=== PATIENT | male | born 1965 | race African-American/Black ===

== ENCOUNTER 2019-04-01 18:59 | Emergency (ER) | payer MEDICARE, MEDICAID, SELFPAY ==
[2019-04-01 19:00] VITALS: BP 108/67; PULSE 72; RESP 16; TEMP 36.6; O2SAT 100; BMI 19.1
[2019-04-01 19:37] LABS: Absolute Lymphocyte Count 0.55 X10^3/uL (0.83-4.51); Absolute Neutrophil Count 0.7 X10^3/uL (2.0-7.7); Basophil# 0.01 X10^3/uL; Basophil% 0.6 % (0-1); Eosinophil# 0.01 X10^3/uL; Eosinophils% 0.6 % (0-5); Hematocrit 34.7 % (40-54); Hemoglobin 11.6 g/dL (13.0-16.5); Lymphocyte # 0.55 X10^3/ul (4.0); Lymphocyte % 35.7 % (19-41); Mean Corp Hgb Conc 33.4 g/dL (32-36); Mean Corpuscular Hgb 31.1 pg (27.0-32.0); Mean Platelet Vol. 8.8 fl (6.2-12.0); Monocyte# 0.23 X10^3/uL; Monocyte% 14.9 % (0-10); NRBC Flagged by Analyzer 0 % (0-5); Neutrophil # 0.73 X10^3/uL (2.7-7.7); Neutrophil % 47.6 % (47-70); POSITIVE DIFFERENTIAL YES; Platelet Count 243 K/mm3 (150-450); RBC Distribution Width CV 13.5 % (11.6-14.6); RBC Distribution Width SD 46.1 fl (35.1-43.9); Red Blood Count 3.73 M/mm3 (4.6-6.2); White Blood Count 1.5 K/mm3 (4.4-11.0)
[2019-04-01 19:46] LABS: Differential Indicated SCAN CRITERIA MET
[2019-04-01 19:49] LABS: Anion Gap 4 (5-15); BUN 2 mg/dL (7-18); BUN/Creat Ratio 3.7 RATIO (10-20); Calcium,Total 8.5 mg/dL (8.5-10.1); Chloride 92 mmol/L (98-107); Creatinine, Serum 0.55 mg/dL (0.70-1.30); EST Glomerular Filtration Rate 167 mL/min (>60); Est Glom Filt Rate - Afr Amer 202 mL/min (>60); Estimated Creatinine Clearance 130.67 ml/min; Glucose 106 mg/dL (74-106); Potassium 4.3 mmol/L (3.5-5.1); Sodium Level 129 mmol/L (136-145)
[2019-04-01 20:04] LABS: Differential Comment SCANNED
[2019-04-01 20:07] LABS: Valproic Acid (Depakene) Level 58 ug/mL (50-100)
--- NOTE | 2019-04-01 20:16 | ED.VISSUMM ---
- ER Visit Summary Date of Service: 04/01/19 Chief Complaint: [Seizure] History of Present Illness: The patient is a 53 M [presents to the emergency department after having a seizure prior to arrival in the emergency department. Patient has a history of seizure disorder as well as Down syndrome and history of hypothyroidism. Patient apparently was seated when he was noted by staff at the correction to have whole body tonic-clonic like activity that lasted about 15 minutes. Patient was postictal afterwards. Patient did not injure himself as he was lowered to the ground. Patient not been ill. Patient has been receiving his Depakote medications.] Patient was not incontinent. Physical Examination: [HEENT-PERRLA, EOMI. Cranial nerves II through XII grossly intact. TMs clear. Mucous membranes moist. No adenopathy. No bite wounds noted to the tongue. Cardiovascular-regular rate and rhythm without murmur or ectopy Lungs-clear to auscultation, chest wall stable without crepitus or subcu emphysema Abdomen-normoactive bowel sounds, soft, nontender, no rebound or rigidity, no peritoneal signs. Neuro cpid-[id number]-fxaf and heel cortes testing within normal limits, negative Romberg, negative pronator, fundi benign. Extremities-intact ?4, normal range of motion, normal pulses, atraumatic] Test Results: [CBC with differential obtained showed a low white blood cell count of 1.5, hemoglobin 11.6, hematocrit 35, platelets 243. Chemistries showed a sodium 129, potassium 4.3, chloride 92, CO2 33, glucose 106, BUN 2) 0.55. Depakote level was 58.] Emergency Department Course and Treatment: Had an IV line established and he was observed in the department he had no further seizure activity. Tentative contact his primary care physician initially unsuccessfully. Patient has an appointment to see her tomorrow. [] Treatment Plan: [Follow-up with family doctor tomorrow] Disposition: [Discharged to home in stable condition] Impression: [Recurrent seizure] This note was generated with [employer] software. It may contain incorrect words, spelling, and punctuation that were not noted in review of the chart prior to signing ED Disposition - Plan for ED Patient: Referrals: Danuta Trujillo MD [Primary Care Provider] -
--- NOTE | 2019-04-01 20:19 | ED.DEP ---
ED Disposition - Plan for ED Patient: Instructions: SEIZURE, Recurrent [Adult] Referrals: Danuta Trujillo MD [Primary Care Provider] - 1 Day
[2019-04-01 20:37] VITALS: BP 120/70; PULSE 78; RESP 18; O2SAT 100
[2019-04-02 16:02] LABS: Pathologist Review Reviewed
== END 2019-04-01 20:38 | disposition home or self-care (01) ==
LOC: ED 19:50
PROVIDERS: Emergency Provider Emergency Medicine; Family Provider Internal Medicine; PCP Internal Medicine
DX: G40.909 Epilepsy, unspecified, not intractable, without status epilepticus (principal); E03.9 Hypothyroidism, unspecified; Q90.9 Down syndrome, unspecified; K21.9 Gastro-esophageal reflux disease without esophagitis; F32.9 Major depressive disorder, single episode, unspecified; Z79.899 Other long term (current) drug therapy
CPT/HCPCS: 80048; 80164; 85025; 99285; A4216

== ENCOUNTER 2019-04-05 14:33 | Emergency (ER) | payer MEDICARE, MEDICAID, SELFPAY ==
[2019-04-05] VITALS (8 sets, daily range): BP systolic 101–123; BP diastolic 45–72; PULSE 70–102; RESP 15–19; TEMP 36.6–36.7; O2SAT 100; BMI 19.8
--- NOTE | 2019-04-05 15:07 | EKG12_ITS ---
Test Reason : CP Blood Pressure : / mmHG Vent. Rate : 074 BPM Atrial Rate : 074 BPM P-R Int : 178 ms QRS Dur : 092 ms QT Int : 394 ms P-R-T Axes : 073 055 070 degrees QTc Int : 437 ms Normal sinus rhythm Low Voltage QRS (Limb Leads) Confirmed by SABINA GOLDBERG, SHIVA ([id number]), editor greeting card BARTOLOME SALVADOR ([id number]) on 04/07/2019 3:12:24 PM Referred By: Confirmed By:SHIVA MUHAMMAD MD
--- NOTE | 2019-04-05 15:08 | CT_ITS ---
STUDY: CT BRAIN WITHOUT CONTRAST REASON FOR EXAM: Male, 53 years old. Frequent falls seizure disorder RADIATION DOSAGE (If Supplied By Facility): CTDIvol = ( 44.99 ) mGy, DLP = ( 798.92 ) mGycm TECHNIQUE: Transaxial CT imaging of the brain was performed without administration of intravenous contrast material. Individualized dose optimization techniques were used for this CT. COMPARISON: October 13, 2014 CT head FINDINGS: There is right frontal soft tissue edema suggested. Normal calvarium. There is moderate cerebral atrophy with widening of the extra-axial spaces and ventricular dilatation. There are areas of decreased attenuation within the white matter tracts of the supratentorial brain, consistent with microvascular disease changes. Normal basal ganglia and thalami. Normal brainstem. There is mild cerebellar atrophy. There is no intracranial hemorrhage. There are no findings of an acute ischemic infarction. There is a right-sided maxillary mucosal retention cyst. There is a diminutive appearance of the right-sided mastoid sinuses. The left side sinuses are clear. CT/Brain/Head without Contrast IMPRESSION: Ventriculomegaly, atrophy slightly greater ventricular size and the associated CSF spaces. No visualized acute hemorrhage infarct or edema. Mild right frontal soft tissue edema. Electronically Signed: Celina Casiano MD at 16:50 EDT Tel , Service support ,
--- NOTE | 2019-04-05 15:10 | RAD_ITS ---
We are attempting to reach an attending provider to discuss findings. An addendum with communication details will be sent when the communication is complete. STUDY: X-RAY CHEST REASON FOR EXAM: Male, 53 years old. Malaise low blood pressure TECHNIQUE: Single AP portable view of the chest. COMPARISON: Prior comparison studies are not available for review at this time. FINDINGS: There is focal opacity within the right apex and possibly within the right midlung zone which may represent small foci of infection versus mass. Findings There is no demonstrated pleural abnormality. Normal size heart. Normal mediastinum and karie. Normal visualized pulmonary arteries. Normal visualized aortic arch and descending thoracic aorta. Normal visualized thoracic spine. Normal visualized ribs, clavicles, and shoulders. There is no demonstrated abnormality of the visualized soft tissue structures of the upper abdomen. RAD/Chest 1 View (Portable) IMPRESSION: Focal pneumonia versus mass history of COPD right upper lobe recommend follow-up CT scan of the chest. Electronically Signed: Celina Casiano MD at 15:42 EDT Tel , Service support ,
--- NOTE | 2019-04-05 15:10 | ED.DCSUM_ITS ---
History of Present Illness Chief Complaint: Fall Informant: Friend - [facility] staff Occurred: Today - STACEY Mechanism/Context: Same level fall Usually ambulates: Without assistance Location: head Quality of Pain: Aching Current Severity: Mild Maximum Severity: Mild Worsened by: na Relieved by: na Associated Symptoms: Negative for: Loss of function, Loss of consciousness Narrative: Patient apparently had a fall just outside of [facility], svp group director which she is in the restroom at the time and heard him fall, other residents apparently saw it but details are lacking. No seizure activity was noted by anyone. She does have a seizure disorder and takes valproic acid for it. No recent dosage changes that fraud manager knows of. The patient has Down syndrome so the history is greatly limited. He was able to help him stand up and on the way back into the house he suddenly collapsed, this time witnessed by the svp group director, falling to the floor but was able to stand up with assistance again and walk without any apparent injury. When I checked his blood pressure, he had systolics in the 60s. His pulse was in the high 70s. On repeat, it was 85 systolic, now it is 101 systolic. He usually has a normal systolic blood pr essure over 100. He lately has been on fluid restriction since only yesterday because of high sodium levels. health safety manager states he is at his baseline mental status except he looks tired. - Past Medical History (1) Depression Status: Chronic (2) Down syndrome Status: Chronic (3) Gastroesophageal reflux disease Status: Chronic (4) Hypothyroidism Status: Chronic (5) Mental retardation Status: Chronic (6) Seasonal allergic rhinitis Status: Chronic (7) Seizure disorder Status: Chronic Past Medical History - Allergies and Home Meds Allergies/Adverse Reactions: Allergies No Known Allergies Allergy (Verified 04/05/19 14:37) Primary Care Physician: Wilmer Ordoñez DO [STAFF PHYSICIAN] - 3-5 Days (call sunday for appt) Danuta Trujillo MD [Primary Care Provider] - 3-5 Days Surgical History: - - Hip replacement on the left due to osteonecrosis Lives: - - [facility] Smoking Status: Never smoker - Family History Maternal Family History: Reports: No pertinent history Review of Systems ROS: Unable to Obtain - due to Down's / MR Eyes: Reports: Blurred vision - right - pt states unk for how long Cardiovascular: Denies: Chest pain Respiratory: Reports: Cough - all the time per [facility] staff. Denies: Dyspnea Gastrointestinal: Denies: Abdominal pain, Nausea Musculoskeletal: Denies: Neck pain, Back pain, Extremity Pain Skin: Denies: Abscess, Wounds Neurological: Reports: Headache - now. Denies: Numbness Physical Exam Vital Signs/Narrative: Vital Signs Temp Pulse Resp BP Pulse Ox 04/05/19 14:34 97.9 F 74 16 101/55 L 100 Inital Vital Signs reviewed: Yes General: Well nourished, Well developed, - - NAD Head: Normocephalic, Atraumatic Eyes: Perrl, EOMI, - - all visual juarez intact, pt able to independently count fingers w/ each eye with the other covered. ENT: TM's clear, No hemotympanum or drainage, No trauma. Negative for: Otorr hea, Nasal trauma, Nasal septal hematoma Neck: Nontender, Full ROM. Negative for: Spinal Tenderness Cardiovascular: Regular rate, Regular rhythm, No murmurs Respiratory: No distress, CTA bilaterally, Chest nontender Abdomen: Soft, Nontender, Nondistended, Normal bowel sounds Back: Nontender Extremeties: Painless full range of motion throughout all 4 extremities no evidence of trauma or tenderness. Skin: Normal color, No rash, No Trauma Neurological: Alert - but appears malaised/somnolent, Cranial nerves II-XII grossly intact, Normal Strength, Normal Sensation. Negative for: Oriented x3 - slurred speech, difficult to understand Psychological: Normal affect Diagnostic/Tx/Re-eval Impressions Brain CT 04/05/19 15:08 IMPRESSION: Ventriculomegaly, atrophy slightly greater ventricular size and the associated CSF spaces. No visualized acute hemorrhage infarct or edema. Mild right frontal soft tissue edema. Electronically Signed: Celina Casiano MD at 16:50 EDT Tel , Service support , Chest X-Ray 04/05/19 15:10 IMPRESSION: Focal pneumonia versus mass history of COPD right upper lobe recommend follow-up CT scan of the chest. Electronically Signed: Celina Casiano MD at 15:42 EDT Tel , Service support , ADDENDUM: 04/05/19 1552 IMPRESSION: Focal pneumonia versus mass history of COPD right upper lobe recommend follow-up CT scan of the chest. N.B. : The above information has been verbally conveyed by Celina Casaino MD to Miles Nagel MD, on 04/05/2019 15:45:55 (ET). Electronically Signed: Celina Casiano MD at 15:42 EDT Tel , Service support , Chest CT 04/05/19 15:57 IMPRESSION: There is a focal right upper lobe consolidation with air bronchogram. Findings are suggestive of a possible focus of cavitation versus more likely an associated emphysematous blebs that was seen in the same vicinity on the prior study. The coronal view suggests that this may represent a infiltrate possible pneumonia potentially aspiration in this patient's condition. However a neoplasm could potentially have this appearance. Recommend close interval follow-up study and/or consideration for bronchoscopy. Percutaneous endogastric tube. Bilateral partial visualization of renal pelviectasis could consider follow-up ultrasound when appropriate. No evidence of pulmonary embolism allowing for contrast technique. Electronically Signed: Celina Casiano MD at 16:55 EDT Tel , Service support , 04/05/19 15:08 CT Brain [Brain/Head without Contrast] [CT] Stat 04/05/19 15:10 Chest 1 View (Portable) [RAD] Stat 04/05/19 15:57 Chest WITH Contrast [CT] Stat Laboratory Results 04/05/19 04/05/19 04/05/19 15:30 15:30 15:30 WBC 2.3 L RBC 3.68 L Hgb 11.4 L Hct 34.1 L MCV 92.7 MCH 31.0 MCHC 33.4 RDW Std Deviation 46.2 H RDW Coeff of Tracy 13.6 Plt Count 215 MPV 8.8 Immature Gran % (Auto) 0.400 Neut % (Auto) 56.2 Lymph % (Auto) 28.1 Woodson % (Auto) 14.5 H Eos % (Auto) 0.4 Baso % (Auto) 0.4 Absolute Neuts (auto) 1.3 L Absolute Lymphs (auto) 0.64 L Nucleated RBC % 0 PT 14.7 INR 1.2 APTT 34.0 Sodium 130 L Potassium 4.5 Chloride 92 L Carbon Dioxide 31.0 Anion Gap 7 BUN 6 L Creatinine 0.77 Estim Creat Clear Calc 88.56 Est GFR (MDRD) Af Amer 136 Est GFR (MDRD) Non-Af 112 BUN/Creatinine Ratio 7.8 L Glucose 84 Lactic Acid Calcium 8.9 Total Bilirubin 0.30 AST 20 ALT 18 Alkaline Phosphatase 91 Total Protein 7.6 Albumin 3.1 L Globulin 4.5 H Albumin/Globulin Ratio 0.7 L Urine Color Urine Clarity Urine pH Ur Specific [place] Urine Protein Urine Glucose (UA) Urine Ketones Urine Occult Blood Urine Nitrite Urine Bilirubin Urine Urobilinogen Ur Leukocyte Esterase Urine RBC Urine WBC Ur Squamous Epith Cells Urine Bacteria Urine Mucus Valproic Acid 04/05/19 04/05/19 04/05/19 15:30 15:30 16:35 WBC RBC Hgb Hct MCV MCH MCHC RDW Std Deviation RDW Coeff of Tracy Plt Count MPV Immature Gran % (Auto) Neut % (Auto) Lymph % (Auto) Woodson % (Auto) Eos % (Auto) Baso % (Auto) Absolute Neuts (auto) Absolute Lymphs (auto) Nucleated RBC % PT INR APTT Sodium Potassium Chloride Carbon Dioxide Anion Gap BUN Creatinine Estim Creat Clear Calc Est GFR (MDRD) Af Amer Est GFR (MDRD) Non-Af BUN/Creatinine Ratio Glucose Lactic Acid 1.1 Calcium Total Bilirubin AST ALT Alkaline Phosphatase Total Protein Albumin Globulin Albumin/Globulin Ratio Urine Color Yellow Urine Clarity Clear Urine pH 8.0 Ur Specific [place] 1.010 Urine Protein Negative Urine Glucose (UA) Normal Urine Ketones Negative Urine Occult Blood Negative Urine Nitrite Negative Urine Bilirubin Negative Urine Urobilinogen Normal Ur Leukocyte Esterase Negative Urine RBC 0 SEEN Urine WBC 0 SEEN Ur Squamous Epith Cells 0 SEEN Urine Bacteria RARE Urine Mucus 0 SEEN Valproic Acid 64 - Rhythm Strip Rhythm Strip: Sinus Rhythm Rate: 75 Ectopy: None - EKG Initial EKG Interpretation: Sinus Rhythm, No Acute Injury Pattern - normal EKG Prior: No Prior Follow-up EKG Interpretation: Sinus Rhythm, No Acute Injury Pattern Prior: Unchanged - Medical Decision Making Radiology called me about his chest x-ray, given the lack of ability to perform a good review of systems, and a good history of what happened earlier, I performed screening test to look for infection. His chest x-ray shows the possibility of right upper lobe mass. CT was recommended, I opted to do it now, after discussing with the [facility] staff who stated that they talk to the legal guardian, who generally wants everything done possible as soon as possible. This was done and shows that it is difficult to discern whether the affected area in the right upper lobe is an aspiration pneumonia or mass and they recommend bronchoscopy. This was an IV contrasted scan. From what they could tell there was no PE although the scan was not performed in order to rule out pulmonary embolism, nor was it necessarily suspected. His blood pressure steadily risen, and with orthostatics he is negative, and blood pressure continued to rise even with standing which he is able to do without difficulty. Because he indicated a headache and we did not know if he hit his head or not, CT of his head was performed and unremarkable for injury. He does have leukopenia as previously noted and found, grossly unchanged. He had mild hyponatremia before, at 129 and it is now 130. There are no other electrolyte imbalances. He will be given some fluid in addition to Unasyn. Discussed with Dr. Ordoñez who is agreeable to have the patient follow-up, but states that the most practical thing to do would be to wait and see if the empiric antibiotic therapy changes things, repeating the CT in 4-6 weeks would be recommended before performing bronchoscopy. [facility] staff is comfortable taking him home and I do not think he needs to be medically admitted for this given his oxygen levels and normal vital signs. ED Disposition - Plan for ED Patient: Disposition: Home or Assisted Living Diagnosis: Pneumonia, Transient hypotension, Fall Instructions: FALL, Uncertain Cause, PNEUMONIA (Adult) Prescriptions: Amox/Clavulanate Tablet [Augmentin Tablet] 875 mg PO Q12H #20 tab Prescription Printed Referrals: Danuta Trujillo MD [Primary Care Provider] - 3-5 Days Wilmer Ordoñez DO [STAFF PHYSICIAN] - (Follow-up 4-6 weeks if after treatment, repeat CT shows continued concern)
[2019-04-05 15:50] LABS: Absolute Lymphocyte Count 0.64 X10^3/uL (0.83-4.51); Absolute Neutrophil Count 1.3 X10^3/uL (2.0-7.7); Basophil# 0.01 X10^3/uL; Basophil% 0.4 % (0-1); Eosinophil# 0.01 X10^3/uL; Eosinophils% 0.4 % (0-5); Hematocrit 34.1 % (40-54); Hemoglobin 11.4 g/dL (13.0-16.5); Lymphocyte # 0.64 X10^3/ul (4.0); Lymphocyte % 28.1 % (19-41); Mean Corp Hgb Conc 33.4 g/dL (32-36); Mean Corpuscular Volume 92.7 fL (80-94); Mean Platelet Vol. 8.8 fl (6.2-12.0); Monocyte# 0.33 X10^3/uL; Monocyte% 14.5 % (0-10); NRBC Flagged by Analyzer 0 % (0-5); Neutrophil # 1.28 X10^3/uL (2.7-7.7); Neutrophil % 56.2 % (47-70); Platelet Count 215 K/mm3 (150-450); RBC Distribution Width CV 13.6 % (11.6-14.6); RBC Distribution Width SD 46.2 fl (35.1-43.9); Red Blood Count 3.68 M/mm3 (4.6-6.2); White Blood Count 2.3 K/mm3 (4.4-11.0)
--- NOTE | 2019-04-05 15:57 | CT_ITS ---
STUDY: CT CHEST WITH CONTRAST REASON FOR EXAM: Male, 53 years old. Echo and follows seizure disorder mass RADIATION DOSAGE (If Supplied By Facility): CTDIvol = ( 14.98 ) mGy, DLP = ( 264.08 ) mGycm TECHNIQUE: Transaxial imaging was performed following intravenous administration of IV Isovue 300 100. Multiplanar coronal and sagittal images were reformatted. Individualized dose optimization techniques were used for this CT. COMPARISON: Neck soft tissue study October 14, 2014 which demonstrates partial visualization of the right apex. FINDINGS: There is a focal opacity within the right upper lobe that when compared to the prior study demonstrates small focal air bronchograms. There is a centrally located cystic structure which may represent pre-existing emphysematous bleb that was already seen on the prior study and/or possible focal cavitation. This area appears to be more of an infection than neoplasm on the coronal views. There is no demonstrated pleural abnormality. Normal heart and pericardium. Normal mediastinum. Normal hilar regions. Normal enhanced pulmonary arteries. Normal aorta arch and descending thoracic aorta. There are multi-level degenerative changes of the thoracic spine. There is a visualized percutaneous endogastric tube in the stomach. There is visualized mild bilateral pelviectasis. CT/Chest WITH Contrast IMPRESSION: There is a focal right upper lobe consolidation with air bronchogram. Findings are suggestive of a possible focus of cavitation versus more likely an associated emphysematous blebs that was seen in the same vicinity on the prior study. The coronal view suggests that this may represent a infiltrate possible pneumonia potentially aspiration in this patient's condition. However a neoplasm could potentially have this appearance. Recommend close interval follow-up study and/or consideration for bronchoscopy. Percutaneous endogastric tube. Bilateral partial visualization of renal pelviectasis could consider follow-up ultrasound when appropriate. No evidence of pulmonary embolism allowing for contrast technique. Electronically Signed: Celina Casiano MD at 16:55 EDT Tel , Service support ,
[2019-04-05 16:01] LABS: ALB/GLOB Ratio 0.7 RATIO (0.9-2.4); AST(SGOT) 20 U/L (15-37); Alanine Aminotransfer ALT/SGPT 18 U/L (16-61); Albumin, Serum 3.1 g/dL (3.2-5.0); Alkaline Phosphatase 91 U/L (45-117); Anion Gap 7 (5-15); BUN 6 mg/dL (7-18); BUN/Creat Ratio 7.8 RATIO (10-20); Calcium,Total 8.9 mg/dL (8.5-10.1); Chloride 92 mmol/L (98-107); Creatinine, Serum 0.77 mg/dL (0.70-1.30); EST Glomerular Filtration Rate 112 mL/min (>60); Est Glom Filt Rate - Afr Amer 136 mL/min (>60); Estimated Creatinine Clearance 88.56 ml/min; Globulin 4.5 g/dL (2.2-4.2); Glucose 84 mg/dL (74-106); Potassium 4.5 mmol/L (3.5-5.1); Protein, Total 7.6 g/dL (6.4-8.2); Sodium Level 130 mmol/L (136-145)
[2019-04-05 16:02] LABS: International Normalized Ratio 1.2; Prothrombin Time (Protime)PT. 14.7 SECONDS (11.7-14.9)
[2019-04-05 16:03] LABS: Lactic Acid 1.1 mmol/L (0.4-2.0)
[2019-04-05 16:30] LABS: Valproic Acid (Depakene) Level 64 ug/mL (50-100)
[2019-04-05 16:44] LABS: Mucous, Urine 0 SEEN /hpf (<or=2+); Red Blood Cells-Urine 0 SEEN /hpf (0-5); Squamous Epithelial Cells - UA 0 SEEN /hpf (0-5); White Blood Cells 0 SEEN /hpf (0-5)
[2019-04-05 16:47] LABS: Color, Urine Yellow (Yellow); Glucose, Dipstick Normal (Normal); Ketone-Dipstick Negative (Negative); Leukocyte Esterase-Dipstick Negative /ul (Negative); Nitrite-Dipstick Negative (Negative); Occult Blood-Urine Negative /ul (Negative); Protein-Dipstick Negative (Negative); Urine Bilirubin Dipstick Negative (Negative); Urine Clarity Clear (Clear); Urine Urobilinogen Normal (Normal)
--- NOTE | 2019-04-05 16:58 | EKG12_ITS ---
Test Reason : FALL Blood Pressure : / mmHG Vent. Rate : 072 BPM Atrial Rate : 072 BPM P-R Int : 170 ms QRS Dur : 096 ms QT Int : 388 ms P-R-T Axes : 077 064 067 degrees QTc Int : 424 ms Normal sinus rhythm Low Voltage QRS (Limb Leads) Possible Lateral infarct , age undetermined Abnormal ECG Confirmed by SABINA GOLDBERG, SHIVA ([id number]), newspaper photo editor BARTOLOME SALVADOR ([id number]) on 04/07/2019 3:13:10 PM Referred By: Confirmed By:SHIVA MUHAMMAD MD
[2019-04-05 17:01] LABS: Bacteria RARE /hpf (None Seen)
== END 2019-04-05 20:15 | disposition home or self-care (01) ==
PROVIDERS: Emergency Provider Emergency Medicine; Family Provider Internal Medicine; PCP Internal Medicine
DX: J18.9 Pneumonia, unspecified organism (principal); I95.9 Hypotension, unspecified; G93.89 Other specified disorders of brain; R51 Headache; W19.XXXA Unspecified fall, initial encounter; Y93.9 Activity, unspecified; Y92.9 Unspecified place or not applicable; G40.909 Epilepsy, unspecified, not intractable, without status epilepticus; Q90.9 Down syndrome, unspecified; F79 Unspecified intellectual disabilities; F32.9 Major depressive disorder, single episode, unspecified; K21.9 Gastro-esophageal reflux disease without esophagitis; E03.9 Hypothyroidism, unspecified; J30.2 Other seasonal allergic rhinitis; Z79.899 Other long term (current) drug therapy
CPT/HCPCS: 70450; 71045; 71260; 80053; 80164; 81001; 83605; 85025; 85610; 85730; 87040; 87086; 87088; 93005; 96365; 99285; J7030; Q9967; A4216; J0295

== ENCOUNTER 2019-06-29 11:57 | Inpatient (IN) | payer MEDICARE, MEDICAID, SELFPAY ==
[2019-04-05 14:34] VITALS: BMI 19.8
[2019-06-29] VITALS (10 sets, daily range): BP systolic 86–99; BP diastolic 35–47; PULSE 76–89; RESP 13–18; TEMP 36.4–37; O2SAT 97–99; BMI 19.5; BMI 19.0; BMI 19.8
--- NOTE | 2019-06-29 12:35 | CT_ITS ---
STUDY: CT BRAIN WITHOUT CONTRAST REASON FOR EXAM: Male, 54 years old. Confusion. Hypotension. Dizziness RADIATION DOSAGE (If Supplied By Facility): CTDIvol = ( 44.99 ) mGy, DLP = ( 1592.22 ) mGycm TECHNIQUE: Transaxial CT imaging of the brain was performed without administration of intravenous contrast material. Individualized dose optimization techniques were used for this CT. COMPARISON: April 05, 2019. FINDINGS: Normal soft tissue structures. Normal calvarium. There is moderate cerebral atrophy with widening of the extra-axial spaces and ventricular dilatation. Normal white matter tracts of the cerebral hemispheres. Normal basal ganglia and thalami. Normal brainstem. There is moderate cerebellar atrophy. There is no intracranial hemorrhage. There are no findings of an acute ischemic infarction. Mucosal thickening of the right maxillary sinus CT/Brain/Head without Contrast IMPRESSION: Chronic involutional changes of the brain. Electronically Signed: Miles Lauren MD at 13:45 EST , Service support ,
--- NOTE | 2019-06-29 12:36 | EKG12_ITS ---
Test Reason : HYPOTENSION Blood Pressure : / mmHG Vent. Rate : 080 BPM Atrial Rate : 080 BPM P-R Int : 168 ms QRS Dur : 100 ms QT Int : 370 ms P-R-T Axes : 062 026 048 degrees QTc Int : 426 ms Normal sinus rhythm Normal ECG Confirmed by MALINI SHAH MD ([id number]), news assignment editor SHANA CHANG ([id number]) on 07/03/2019 8:48:33 AM Referred By: Jade Hinson Confirmed By:MALINI SHAH MD
--- NOTE | 2019-06-29 12:41 | ED.DCSUM_ITS ---
- ER Visit Summary Date of Service: 06/29/19 Chief Complaint: Confusion, weakness, hypotension History of Present Illness: The patient is a 54 M who presents with confusion, weakness, and hypotension that began today. Patient was with his sister when he began to feel weak today. Sister noticed that he was having difficulty standing and had to hold onto things. The sister states that the patient has had some recent stool incontinence from diarrhea. Caregiver reports the patient's blood pressure has been low throughout the day today. Caregiver and family deny any fevers or chills. Patient has not had any nausea or vomiting today. Physical Examination: Vital signs show blood pressure 99/35. Patient is afebrile. Patient is in no acute distress. Pupils are equal, round, and reactive to light bilaterally. Extraocular muscles are intact. Oral mucosa is pink and moist. Neck is supple. Trachea is midline. There is no JVD. Heart was regular rate and rhythm. Lungs are clear and equal bilaterally. Abdomen is soft. Bowel sounds are normal. There is no tenderness. Cranial nerves II through XII are grossly intact. There are no focal motor or sensory deficits noted. Extremities are intact. There is no calf tenderness or edema. Test Results: EKG showed normal sinus rhythm with a rate of 80. There are no acute ST or T wave changes noted. CBC showed a mild leukocytosis of 13.6. There is a mild anemia with a hemoglobin of 10.8 and hematocrit 31.3. Sodium was low at 119. Chloride was 87. Comprehensive metabolic profile was otherwise within normal limits. Urinalysis does not show any evidence of urinary tract infection. Troponin was normal. CT scan of the brain was obtained and was negative. PA and lateral chest x-ray was obtained. There is right middle and lower lobe infiltrates. Emergency Department Course and Treatment: Patient was given IV fluids here. Patient's blood pressure dropped initially however it is improving. Lactate and blood cultures were obtained and are pending. Patient was started on Levaquin. Repeat EKG was obtained and was unchanged. Case was discussed with the hospitalist. She will admit the patient to PCU. Patient and family understood and were agreeable with the plan. All questions were answered. Disposition: Admit to hospital Impression: 1. Pneumonia 2. Hyponatremia This note was generated with [employer] software. It may contain incorrect words, spelling, and punctuation that were not noted in review of the chart prior to signing ED Disposition - Plan for ED Patient: Disposition: Acute Care Hospital [facility] Diagnosis: Pneumonia, Hyponatremia Referrals: Danuta Trujillo MD [Primary Care Provider] -
[2019-06-29] MEDS: 0.9% Normal Saline 1,000 ML 1000 ML IV (12:55)
[2019-06-29 12:59] LABS: Absolute Lymphocyte Count 0.24 X10^3/uL (0.83-4.51); Absolute Neutrophil Count 12.7 X10^3/uL (2.0-7.7); Basophil# 0.01 X10^3/uL; Basophil% 0.1 % (0-1); Hematocrit 31.3 % (40-54); Hemoglobin 10.8 g/dL (13.0-16.5); Lymphocyte # 0.24 X10^3/ul (4.0); Lymphocyte % 1.8 % (19-41); Mean Corp Hgb Conc 34.5 g/dL (32-36); Mean Corpuscular Volume 89.9 fL (80-94); Mean Platelet Vol. 8.8 fl (6.2-12.0); Monocyte# 0.66 X10^3/uL; Monocyte% 4.8 % (0-10); NRBC Flagged by Analyzer 0 % (0-5); Neutrophil # 12.65 X10^3/uL (2.7-7.7); Neutrophil % 92.8 % (47-70); POSITIVE DIFFERENTIAL YES; POSITIVE MORPHOLOGY YES; Platelet Count 189 K/mm3 (150-450); RBC Distribution Width CV 12.8 % (11.6-14.6); RBC Distribution Width SD 41.9 fl (35.1-43.9); Red Blood Count 3.48 M/mm3 (4.6-6.2); White Blood Count 13.6 K/mm3 (4.4-11.0)
[2019-06-29 13:06] LABS: Differential Indicated SCAN CRITERIA MET
[2019-06-29 13:18] LABS: Bacteria 0 SEEN /hpf (None Seen); Mucous, Urine 0 SEEN /hpf (<or=2+); Red Blood Cells-Urine 0 SEEN /hpf (0-5); Squamous Epithelial Cells - UA 0 SEEN /hpf (0-5); White Blood Cells 0 SEEN /hpf (0-5)
[2019-06-29 13:21] LABS: ALB/GLOB Ratio 0.7 RATIO (0.9-2.4); AST(SGOT) 28 U/L (15-37); Alanine Aminotransfer ALT/SGPT 15 U/L (16-61); Albumin, Serum 2.8 g/dL (3.2-5.0); Alkaline Phosphatase 70 U/L (45-117); Anion Gap 5 (5-15); BUN 7 mg/dL (7-18); BUN/Creat Ratio 8.9 RATIO (10-20); Calcium,Total 8.4 mg/dL (8.5-10.1); Chloride 87 mmol/L (98-107); Creatinine, Serum 0.78 mg/dL (0.70-1.30); EST Glomerular Filtration Rate 110 mL/min (>60); Est Glom Filt Rate - Afr Amer 133 mL/min (>60); Estimated Creatinine Clearance 87.84 ml/min; Glucose 85 mg/dL (74-106); Potassium 4.4 mmol/L (3.5-5.1); Protein, Total 6.8 g/dL (6.4-8.2); Sodium Level 119 mmol/L (136-145)
[2019-06-29 13:22] LABS: Color, Urine Yellow (Yellow); Glucose, Dipstick Normal (Normal); Ketone-Dipstick Negative (Negative); Leukocyte Esterase-Dipstick Negative /ul (Negative); Nitrite-Dipstick Negative (Negative); Occult Blood-Urine Negative /ul (Negative); Protein-Dipstick Negative (Negative); Specific Gravity, Urine 1.005 (1.002-1.030); Urine Bilirubin Dipstick Negative (Negative); Urine Clarity Clear (Clear); Urine Urobilinogen Normal (Normal)
[2019-06-29 13:24] LABS: Differential Comment SCANNED
--- NOTE | 2019-06-29 13:24 | RAD_ITS ---
STUDY: X-RAY CHEST REASON FOR EXAM: Male, 54 years old. WEAKNESS, HYPOTENSIVE TECHNIQUE: Frontal and lateral views of the chest. COMPARISON: April 05, 2019 FINDINGS: There are monitoring devices. There are right mid and lower lung groundglass and airspace increased opacities. There is no demonstrated pleural abnormality. Normal size heart. Normal mediastinum and karie. Normal visualized pulmonary arteries. Normal visualized aortic arch and descending thoracic aorta. Normal visualized thoracic spine. Normal visualized ribs, clavicles, and shoulders. There is no demonstrated abnormality of the visualized soft tissue structures of the upper abdomen. RAD/Chest PA and Lateral IMPRESSION: Right mid and lower lung pneumonia. Electronically Signed: Miles Lauren MD at 14:06 EST , Service support ,
--- NOTE | 2019-06-29 14:05 | EKG12_ITS ---
Test Reason : REPEAT EKG Blood Pressure : / mmHG Vent. Rate : 089 BPM Atrial Rate : 089 BPM P-R Int : 168 ms QRS Dur : 096 ms QT Int : 386 ms P-R-T Axes : 060 028 046 degrees QTc Int : 469 ms Normal sinus rhythm Normal ECG Confirmed by PABLO GOLDBERG, MALINI ([id number]), content editor SHANA CHANG ([id number] on 07/03/2019 8:48:20 AM Referred By: Jade Hinson Confirmed By:MALINI SHAH MD
--- NOTE | 2019-06-29 14:21 | NURSING ---
DR ESCOBAR FOR DR SPRAGUE
--- NOTE | 2019-06-29 14:24 | HP.PCM_ITS ---
<Tisha Cabrales - Last Filed: 06/29/19 15:03> Problem List (1) Seasonal allergic rhinitis Status: Chronic (2) Leukopenia Status: Chronic (3) Down syndrome Status: Chronic (4) Dysphagia Status: Chronic (5) Mental retardation Status: Chronic (6) Hypothyroidism Status: Chronic (7) Gastroesophageal reflux disease Status: Chronic (8) Seizure disorder Status: Chronic (9) Depression Status: Chronic History of Present Illness Date of Admission: 06/29/19 Chief Complaint: Low blood pressure, weakness. The patient is a 54 year old M who presents from [facility] due to low blood pressure and weakness. Caregiver and patient's sister at bedside. Patient apparently went to a store with his sister when his knees buckled and he appeared unwell. Sister reports patient has had ongoing diarrhea for weeks to months. Patient has mostly nonverbal and unable to provide HPI. He denies any current complaints. Sister and caregiver deny other known recent illness. He has a past medical history of MRDD, hypothyroidism, seizure disorder, GERD, depression, dysphagia, seasonal allergies. Past Medical History Past Medical History (Chronic Problems): Chronic Problems Seasonal allergic rhinitis (Chronic) Leukopenia (Chronic) Down syndrome (Chronic) Dysphagia (Chronic) Mental retardation (Chronic) Hypothyroidism (Chronic) Gastroesophageal reflux disease (Chronic) Seizure disorder (Chronic) Depression (Chronic) Allergies No Known Allergies Allergy (Verified 06/29/19 12:02) Home Medications: Ambulatory Orders Medication Instructions Recorded Diazepam [Valium] 5 mg GT PRN PRN 04/01/19 Levothyroxine [Synthroid] 25 mcg GT DAILY 04/01/19 Mirtazapine [Remeron] 15 mg GT QHS 04/01/19 Ranitidine HCl 5 ml GT BID 04/01/19 Valproic Acid (As Sodium Salt) 5 ml GT BID 04/01/19 [Valproic Acid] Ammonium Lactate [Amlactin] 1 gm TP DAILY 04/05/19 Menthol/Zinc Oxide [Risamine 1 applic TOPICAL TID PRN PRN 04/05/19 Ointment] Polyethylene Glycol 3350 [Gavilax] 17 gm PO QODAY 04/05/19 Loratadine [Allergy] 10 mg GT DAILY 06/29/19 Surgical History: - - Hip replacement on the left due to osteonecrosis, PEG tube placement Psychiatric History: Depression, - - Moderate mental retardation due to trisomy 21/Down syndrome Lives: - - [facility] Smoking Status: Never smoker Alcohol: None Drugs: None - *Family History Maternal History Items: - - breast cancer Paternal History Items: - - prostate cancer Review of Systems Constitutional: Denies: Weight Change Unable to obtain accurate/complete ROS d/t: MRDD, mostly non-verbal. Denies sx. VTE Information - Inpt Only VTE Present on Admission: No VTE Mechan Device Prophylaxis: None VTE Pharm Prophylaxis ordered?: Yes - Physical Exam Vitals/I&O's: Vital Signs Temp Pulse Resp BP Pulse Ox 98.1 F 86 13 86/40 L 99 06/29/19 11:58 06/29/19 12:18 06/29/19 12:18 06/29/19 12:18 06/29/19 12:18 Oxygen Delivery Method Room Air Weight: 125 lb 0.034 oz Body Mass Index (BMI) 19.5 General: Alert, Cooperative, No apparent distress HEENT: Atraumatic, PERRLA, EOMI, Normocephalic Oral: Dry Mucosa Neck: Supple, No JVD, Negative Carotid Bruits Lungs: Clear to auscultation, Normal air movement Cardiovascular: Regular rate, Regular Rhythm, Normal S1, Normal S2, No murmurs Abdomen: Bowel Sounds Present, Soft, Non Tender Extremities: No clubbing, No cyanosis, No edema, Capillary Refill Less than 3 Seconds Skin: No rashes, No breakdown Musculoskeletal: No Tenderness to Palpation of Joints or Extremities Neurological: Cranial nerves II-XII grossly intact, Neuro grossly intact Psych/Mental Status: Normal Affect, Appropriate Laboratory Results 06/29/19 12:50: WBC 13.6 H, RBC 3.48 L, Hgb 10.8 L, Hct 31.3 L, MCV 89.9, MCH 31.0, MCHC 34.5, RDW Std Deviation 41.9, RDW Coeff of Tracy 12.8, Plt Count 189, MPV 8.8, Immature Gran % (Auto) 0.500, Neut % (Auto) 92.8 H, Lymph % (Auto) 1.8 L, [place] % (Auto) 4.8, Eos % (Auto) 0.0, Baso % (Auto) 0.1, Absolute Neuts (auto) 12.7 H, Absolute Lymphs (auto) 0.24 L, Nucleated RBC % 0, Differential Comment SCANNED 06/29/19 12:50: Sodium 119 L*, Potassium 4.4, Chloride 87 L, Carbon Dioxide 27.0, Anion Gap 5, BUN 7, Creatinine 0.78, Estim Creat Clear Calc 87.84, Est GFR (MDRD) Af Amer 133, Est GFR (MDRD) Non-Af 110, BUN/Creatinine Ratio 8.9 L, Glucose 85, Calcium 8.4 L, Total Bilirubin 0.20, AST 28, ALT 15 L, Alkaline Phosphatase 70, Troponin I < 0.015, Total Protein 6.8, Albumin 2.8 L, Globulin 4.0, Albumin/Globulin Ratio 0.7 L 06/29/19 13:00: Urine Color Yellow, Urine Clarity Clear, Urine pH 7.0, Ur Specific Mcgrath 1.005, Urine Protein Negative, Urine Glucose (UA) Normal, Urine Ketones Negative, Urine Occult Blood Negative, Urine Nitrite Negative, Urine Bilirubin Negative, Urine Urobilinogen Normal, Ur Leukocyte Esterase Negative, Urine RBC 0 SEEN, Urine WBC 0 SEEN, Ur Squamous Epith Cells 0 SEEN, Urine Bacteria 0 SEEN, Urine Mucus 0 SEEN Current Medications Sodium Chloride () 1,000 mls @ 999 mls/hr IV .Q1H1M [facility]; Protocol Stop: 06/29/19 15:05 Levofloxacin (Levaquin Iv) 750 mg in 150 mls @ 150 mls/hr IV X1 ONE Stop: 06/29/19 15:03 Assessment/Plan All Active Problems Pneumonia (Acute) Hyponatremia (Acute) Osteonecrosis (Resolved) 1. Community-acquired pneumonia-chest x-ray admission with right mid and lower lung pneumonia. WBC 13.6. Afebrile. Oxygen stable on room air. Lactic acid pending. Continue IV Levaquin. Albuterol and DuoNeb aerosols. Urine for strep and Legionella. Sputum culture. 2. Hypotension-suspect secondary to hypovolemia as a result of ongoing diarrhea. IV fluids. Trend BP. 3. Hypovolemic hyponatremia-IV fluids, trend BMP. 4. Ongoing diarrhea- unclear etiology. Send stool for enteric bacteriology and culture. 5. MRDD-resides in [facility]. 6. Leukopenia, chronic 7. Depression/anxiety-on PRN Valium, Remeron. 8. History of seizures-on valproic acid. 9. GERD-continue ranitidine regimen. 10. Hypothyroidism-continue Synthroid regimen. DVT Prophylaxis: Lovenox sc This patient was seen by AC Johnson under the supervision of Dr. Hinson. <Jade Hinson - Last Filed: 06/29/19 15:43> History of Present Illness The patient is a 54 year old M [] Past Medical History Allergies No Known Allergies Allergy (Verified 06/29/19 12:02) - Physical Exam Vitals/I&O's: Vital Signs Temp Pulse Resp BP Pulse Ox 98.6 F 84 13 91/47 L 98 06/29/19 14:54 06/29/19 14:52 06/29/19 14:52 06/29/19 14:52 06/29/19 14:52 Oxygen Delivery Method Room Air Weight: 56.7 kg Body Mass Index (BMI) 19.5 Intake and Output for Last 24 Hours 06/27/19 06/28/19 06/29/19 23:59 23:59 23:59 Intake Total 1000 / 1000 Balance 1000 / 1000 Laboratory Results 06/29/19 12:50: WBC 13.6 H, RBC 3.48 L, Hgb 10.8 L, Hct 31.3 L, MCV 89.9, MCH 31.0, MCHC 34.5, RDW Std Deviation 41.9, RDW Coeff of Tracy 12.8, Plt Count 189, MPV 8.8, Immature Gran % (Auto) 0.500, Neut % (Auto) 92.8 H, Lymph % (Auto) 1.8 L, [place] % (Auto) 4.8, Eos % (Auto) 0.0, Baso % (Auto) 0.1, Absolute Neuts (auto) 12.7 H, Absolute Lymphs (auto) 0.24 L, Nucleated RBC % 0, Differential Comment SCANNED 06/29/19 12:50: Sodium 119 L*, Potassium 4.4, Chloride 87 L, Carbon Dioxide 27.0, Anion Gap 5, BUN 7, Creatinine 0.78, Estim Creat Clear Calc 87.84, Est GFR (MDRD) Af Amer 133, Est GFR (MDRD) Non-Af 110, BUN/Creatinine Ratio 8.9 L, Glucose 85, Calcium 8.4 L, Total Bilirubin 0.20, AST 28, ALT 15 L, Alkaline Phosphatase 70, Troponin I < 0.015, Total Protein 6.8, Albumin 2.8 L, Globulin 4.0, Albumin/Globulin Ratio 0.7 L 06/29/19 13:00: Urine Color Yellow, Urine Clarity Clear, Urine pH 7.0, Ur Specific Mc[place] 1.005, Urine Protein Negative, Urine Glucose (UA) Normal, Urine Ketones Negative, Urine Occult Blood Negative, Urine Nitrite Negative, Urine Bilirubin Negative, Urine Urobilinogen Normal, Ur Leukocyte Esterase Negative, Urine RBC 0 SEEN, Urine WBC 0 SEEN, Ur Squamous Epith Cells 0 SEEN, Urine Bacteria 0 SEEN, Urine Mucus 0 SEEN 06/29/19 14:20: Lactic Acid 1.0 06/29/19 14:40: PT 15.3 H, INR 1.2, APTT 35.1 Assessment/Plan This patient was seen in conjunction with Tisha Cabrales NP. I have independently interviewed and examined the patient and reviewed pertinent historical, laboratory, and other data. Please refer to her note for patient's presentation, findings, and recommendations. 54-year-old male with past medical history of MRDD, seizure disorder who comes in with hypotension, diarrhea ongoing for weeks. Patient has had no sick contacts, no fever no chills. Admitting chest x-ray showed pneumonia. His WBC count was 13.6. Lactic acid is 1.0. Sodium is 119. UA is unremarkable. Vitals were reviewed -stable Physical Exam: Gen: Looks in some discomfort, not pale, not jaundiced, alert oriented x3 CVS:HS I +II, regular, no murmurs RESP: Diminished, vesicular BS, no added sounds. GI: BS present and normal, nontender, no palpable organs EXT:No edema Labs reviewed: ASSESSMENT: 1. Hypertension 2. Hyponatremia, likely hypovolemic 3. Community-acquired pneumonia 4. Chronic diarrhea 5. Anxiety/depression 6. Seizure disorder 7. Hypothyroidism 8. GERD 9. MRDD Meds reviewed Plan: IV fluids, BMP every 4 Stool for enteric panel IV Levaquin Urine streptococcal and legionella antigen Code Visit Inpatient E&M: 84900 Init Hosp L3
[2019-06-29] MEDS: 0.9% Normal Saline 1,000 ML 999 ML IV (14:50)
[2019-06-29] MEDS: levoFLOXacin IV 750 MG/150 ML BAG 150 MG IV (14:50)
[2019-06-29 14:59] LABS: International Normalized Ratio 1.2; Prothrombin Time (Protime)PT. 15.3 SECONDS (11.7-14.9)
[2019-06-29 15:01] LABS: Partial Thromboplast Time 35.1 Seconds (24.1-36.2)
[2019-06-29 16:39] LABS: Anion Gap 5 (5-15); BUN 6 mg/dL (7-18); BUN/Creat Ratio 8.9 RATIO (10-20); Calcium,Total 8.1 mg/dL (8.5-10.1); Chloride 94 mmol/L (98-107); Creatinine, Serum 0.68 mg/dL (0.70-1.30); EST Glomerular Filtration Rate 131 mL/min (>60); Est Glom Filt Rate - Afr Amer 158 mL/min (>60); Estimated Creatinine Clearance 102.19 ml/min; Glucose 95 mg/dL (74-106); Potassium 4.5 mmol/L (3.5-5.1); Sodium Level 126 mmol/L (136-145)
[2019-06-29 16:41] LABS: Valproic Acid (Depakene) Level 37 ug/mL (50-100)
[2019-06-29] MEDS: 0.9% Normal Saline 1,000 ML 125 ML IV (17:54)
[2019-06-29] MEDS: Ipratropium/Albuterol Sulfate 3 ML AMPUL.NEB INHALATION (19:30)
[2019-06-29 19:48] LABS: Anion Gap 3 (5-15); BUN 6 mg/dL (7-18); BUN/Creat Ratio 9.9 RATIO (10-20); Chloride 98 mmol/L (98-107); Creatinine, Serum 0.61 mg/dL (0.70-1.30); EST Glomerular Filtration Rate 147 mL/min (>60); Est Glom Filt Rate - Afr Amer 178 mL/min (>60); Estimated Creatinine Clearance 113.92 ml/min; Glucose 79 mg/dL (74-106); Potassium 4.5 mmol/L (3.5-5.1); Sodium Level 130 mmol/L (136-145)
[2019-06-29] MEDS: guaiFENesin 1,200 MG Tablet 1200 MG PO (21:22)
[2019-06-29] MEDS: Mirtazapine 15 MG Tablet GT (21:22)
[2019-06-29] MEDS: CLARIFY ORDER 1 EACH NOTE (22:16)
[2019-06-30] VITALS (12 sets, daily range): BP systolic 90–101; BP diastolic 40–54; PULSE 75–97; RESP 16–20; TEMP 36.3–37.2; O2SAT 98–99
[2019-06-30] MEDS: 0.9% Normal Saline 1,000 ML 75 ML IV (05:10)
[2019-06-30] MEDS: Levothyroxine 25 MCG TABLET GT (05:26)
[2019-06-30] MEDS: Ipratropium/Albuterol Sulfate 3 ML AMPUL.NEB INHALATION ×3 (06:48→21:29)
[2019-06-30 07:23] LABS: Absolute Lymphocyte Count 0.44 X10^3/uL (0.83-4.51); Absolute Neutrophil Count 7.5 X10^3/uL (2.0-7.7); Basophil# 0.01 X10^3/uL; Basophil% 0.1 % (0-1); Hemoglobin 10.2 g/dL (13.0-16.5); Lymphocyte # 0.44 X10^3/ul (4.0); Lymphocyte % 5.2 % (19-41); Mean Corpuscular Volume 91.2 fL (80-94); Mean Platelet Vol. 9.2 fl (6.2-12.0); Monocyte% 4.8 % (0-10); NRBC Flagged by Analyzer 0 % (0-5); Neutrophil # 7.51 X10^3/uL (2.7-7.7); Neutrophil % 89.3 % (47-70); POSITIVE DIFFERENTIAL YES; Platelet Count 215 K/mm3 (150-450); RBC Distribution Width CV 13.2 % (11.6-14.6); RBC Distribution Width SD 43.8 fl (35.1-43.9); Red Blood Count 3.29 M/mm3 (4.6-6.2); White Blood Count 8.4 K/mm3 (4.4-11.0)
[2019-06-30 07:31] LABS: Differential Indicated SCAN CRITERIA MET
[2019-06-30 07:47] LABS: Anion Gap 4 (5-15); BUN 6 mg/dL (7-18); BUN/Creat Ratio 9.4 RATIO (10-20); Calcium,Total 8.2 mg/dL (8.5-10.1); Chloride 101 mmol/L (98-107); Creatinine, Serum 0.64 mg/dL (0.70-1.30); EST Glomerular Filtration Rate 140 mL/min (>60); Est Glom Filt Rate - Afr Amer 169 mL/min (>60); Estimated Creatinine Clearance 108.58 ml/min; Glucose 75 mg/dL (74-106); Potassium 4.1 mmol/L (3.5-5.1); Sodium Level 133 mmol/L (136-145)
[2019-06-30] MEDS: levoFLOXacin IV 750 MG/150 ML BAG 100 MG IV (10:13)
[2019-06-30] MEDS: Loratadine 10 MG Tablet GT (10:14)
[2019-06-30] MEDS: Ammonium Lactate 225 gm Bottle 1 APPLIC TOPICAL (10:14)
--- NOTE | 2019-06-30 13:48 | PN_ITS ---
Patient Problems: Active and Suspected Problems Pneumonia (Acute) Hyponatremia (Acute) Reason for Visit: Follow-up on hypotension/hyponatremia Subjective: Patient was seen and examined. He complains of slight chest and abdominal discomfort. Denies any fever or chills. No acute events overnight. Objective: Physical exam: General: Alert, oriented to self only, Cooperative, No apparent distress HEENT: Atraumatic, PERRLA, EOMI, Normocephalic Oral: Moist Mucosa Neck: Supple, No JVD, Negative Carotid Bruits Lungs: Clear to auscultation, Normal air movement Cardiovascular: Regular rate, Regular Rhythm, Normal S1, Normal S2, No murmurs Abdomen: Bowel Sounds Present, Soft, Non Tender Extremities: No clubbing, No cyanosis, No edema, Capillary Refill Less than 3 Seconds Skin: No rashes, No breakdown Musculoskeletal: No Tenderness to Palpation of Joints or Extremities Neurological: Cranial nerves II-XII grossly intact, Neuro grossly intact Psych/Mental Status: Normal Affect, Appropriate Vitals/I&O's: Vital Signs Temp Pulse Resp BP Pulse Ox 98 F 89 18 99/44 L 98 06/30/19 12:30 06/30/19 12:30 06/30/19 12:30 06/30/19 12:30 06/30/19 12:30 Oxygen Delivery Method Room Air Weight: 57.5 kg Body Mass Index (BMI) 19.8 Intake and Output for Last 24 Hours 06/28/19 06/29/19 06/30/19 23:59 23:59 23:59 Intake Total 2778.75 / 2778.75 1310.00 / 1310.00 Output Total 1800 / 1800 600 / 600 Balance 978.75 / 978.75 710.00 / 710.00 Microbiology Past 72 Hours 06/30/19 05:00 Urine, Clean Catch Legionella Antigen - Final 06/30/19 05:00 Urine, Clean Catch Streptococcus pneumoniae Antigen (M - Final Laboratory Results 06/29/19 14:20: Lactic Acid 1.0 06/29/19 14:40: PT 15.3 H, INR 1.2, APTT 35.1 06/29/19 16:07: Valproic Acid 37 L 06/29/19 16:07: Sodium 126 L, Potassium 4.5, Chloride 94 L, Carbon Dioxide 27.0, Anion Gap 5, BUN 6 L, Creatinine 0.68 L, Estim Creat Clear Calc 102.19, Est GFR (MDRD) Af Amer 158, Est GFR (MDRD) Non-Af 131, BUN/Creatinine Ratio 8.9 L, Glucose 95, Calcium 8.1 L 06/29/19 19:20: Sodium 130 L, Potassium 4.5, Chloride 98, Carbon Dioxide 29.0, Anion Gap 3 L, BUN 6 L, Creatinine 0.61 L, Estim Creat Clear Calc 113.92, Est GFR (MDRD) Af Amer 178, Est GFR (MDRD) Non-Af 147, BUN/Creatinine Ratio 9.9 L, Glucose 79, Calcium 8.0 L 06/30/19 06:52: WBC 8.4, RBC 3.29 L, Hgb 10.2 L, Hct 30.0 L, MCV 91.2, MCH 31.0, MCHC 34.0, RDW Std Deviation 43.8, RDW Coeff of Tracy 13.2, Plt Count 215, MPV 9.2, Immature Gran % (Auto) 0.600, Neut % (Auto) 89.3 H, Lymph % (Auto) 5.2 L, [place] % (Auto) 4.8, Eos % (Auto) 0.0, Baso % (Auto) 0.1, Absolute Neuts (auto) 7.5, Absolute Lymphs (auto) 0.44 L, Nucleated RBC % 0, Differential Comment COMMENT 06/30/19 06:52: Sodium 133 L, Potassium 4.1, Chloride 101, Carbon Dioxide 28.0, Anion Gap 4 L, BUN 6 L, Creatinine 0.64 L, Estim Creat Clear Calc 108.58, Est GFR (MDRD) Af Amer 169, Est GFR (MDRD) Non-Af 140, BUN/Creatinine Ratio 9.4 L, Glucose 75, Calcium 8.2 L Current Medications Acetaminophen (Tylenol) 650 mg PO Q6H PRN PRN PRN Reason: Pain Score 1-3/Temp > 100.7 F Albuterol/Ipratropium (Duoneb) 3 ml INHALATION Q6H.RT EMPERATRIZ Last Admin: 06/30/19 13:39 Dose: 3 ml Documented by: Diazepam (Valium) 5 mg GT DAILY PRN PRN PRN Reason: ANXIETY Guaifenesin (Robitussin) 10 ml GT Q6H PRN PRN PRN Reason: COUGH Levofloxacin (Levaquin Iv) 750 mg in 150 mls @ 100 mls/hr IV Q24 [facility] Stop: 07/07/19 10:01 Last Infusion: 06/30/19 12:13 Dose: Infused Documented by: Lactic Acid (Lac-Hydrin, Amlactin) 1 applic TOPICAL DAILY [facility]; Protocol Last Admin: 06/30/19 10:14 Dose: 1 applicatio Documented by: Levothyroxine Sodium (Synthroid) 25 mcg GT DAILY@0600 [facility] Last Admin: 06/30/19 05:26 Dose: 25 mcg Documented by: Loratadine (Claritin) 10 mg GT DAILY [facility] Last Admin: 06/30/19 10:14 Dose: 10 mg Documented by: Mirtazapine (Remeron) 15 mg GT QHS [facility] Last Admin: 06/29/19 21:22 Dose: 15 mg Documented by: Ondansetron HCl (Zofran) 4 mg IV Q8H PRN PRN PRN Reason: NAUSEA/VOMITING Polyethylene Glycol (Miralax) 17 gm GT QODAY [facility] Last Admin: 06/30/19 10:14 Dose: Not Given Documented by: Ranitidine HCl (Zantac) 75 mg GT BID [facility] Last Admin: 06/30/19 10:14 Dose: 75 mg Documented by: Sodium Chloride () 10 - 40 ml IV UD PRN PRN Reason: SALINE FLUSH STROKE Vital Signs/Narrative: Vital Signs Temp Pulse Resp BP Pulse Ox 06/30/19 12:30 98 F 89 18 99/44 L 98 06/30/19 10:35 97.4 F L 75 18 90/48 L 98 Medical Necessity - Tobacco Use Smoking Status: Never smoker Assessment/Plan All Active Problems Pneumonia (Acute) Hyponatremia (Acute) Osteonecrosis (Resolved) 1. Chest pain, non specific, EKG shows no acute ST-T changes, troponins negative Continue on Ranitidine 2. Hyponatremia, likely hypovolemic, patient was admitted with sodium 119, sodium currently is 131 His sodium appears to be overcorrected; more than the 6-8/24 hours IV fluids stopped. Repeat sodium is 131, will trend labs in am 3. Community-acquired pneumonia, improving Blood cultures are pending Urine legionella and streptococcal antigen is negative Will continue on IV levaquin (day 2) 4. Hypertension, not on meds, will continue to monitor 5. Reported chronic diarrhea, no diarrhea seen here 6. Anxiety/depression, on mirtazapine, diazepam, 7. Seizure disorder, on valproic acid, valproic levels are 37 Will give valproic acid 1000mg IV x 1, then continue with home meds Recheck valproic levels in am 7. Hypothyroidism, continue Synthroid 8. GERD, continue on ranitidine 9. MRDD 10. DVT PPx- Heparin SC Code Visit Inpatient E&M: 12143 Subs Hosp L2
--- NOTE | 2019-06-30 13:50 | EKG12_ITS ---
Test Reason : CP Blood Pressure : / mmHG Vent. Rate : 090 BPM Atrial Rate : 090 BPM P-R Int : 164 ms QRS Dur : 114 ms QT Int : 356 ms P-R-T Axes : 056 023 037 degrees QTc Int : 435 ms Normal sinus rhythm Normal ECG No previous ECGs available Confirmed by STACY GOLDBERG, ABBY ([id number]), development editor SHANA CHANG ([id number] on 07/04/2019 11:15:13 AM Referred By: Jade Hinson Confirmed By:LOGAN KUMAR MD
--- NOTE | 2019-06-30 14:06 | CASEMGMT ---
Patient is from a half-way. KONG called patient's legal guardian, Elinor and left her a voice mail requesting a return call. KONG also called [employer], the company that manages patient's half-way and was told KONG should talk with Kasey. Kasey's number is [phone]. KONG called Kasey and left her a voice mail. Melani RUTHERFORD MSW
[2019-06-30] MEDS: diazePAM 5 MG Tablet GT (14:19)
[2019-06-30 14:40] LABS: Anion Gap 5 (5-15); BUN 6 mg/dL (7-18); BUN/Creat Ratio 8.5 RATIO (10-20); Calcium,Total 8.4 mg/dL (8.5-10.1); Chloride 101 mmol/L (98-107); Creatinine, Serum 0.71 mg/dL (0.70-1.30); EST Glomerular Filtration Rate 124 mL/min (>60); Est Glom Filt Rate - Afr Amer 150 mL/min (>60); Estimated Creatinine Clearance 97.86 ml/min; Glucose 128 mg/dL (74-106); Potassium 3.7 mmol/L (3.5-5.1); Sodium Level 131 mmol/L (136-145)
--- NOTE | 2019-06-30 16:09 | CASEMGMT ---
RN SALBADOR NOTE: Faxed form received from [facility], stating that pt is active with them and is receiving residential services. Resumption of care order placed. [facility] to be notified and discharge instructions to be faxed to them when pt is discharged back to assisted. Yohannes GOODMAN RN CM
[2019-06-30] MEDS: Mirtazapine 15 MG Tablet GT (21:07)
[2019-06-30] MEDS: Jevity 1.5. 1,000 ML Bottle 240 ML GT (21:08)
[2019-06-30] MEDS: Heparin Injection (Vial) 5,000 UNIT/ML VIAL 5000 UNIT SC (21:08)
[2019-06-30] MEDS: Acetaminophen 325 MG Tablet 650 MG PO (23:09)
[2019-07-01 02:57] VITALS: PULSE 75
[2019-07-01 04:40] VITALS: BP 103/54; PULSE 80; RESP 17; TEMP 36.9; O2SAT 95
[2019-07-01] MEDS: Levothyroxine 25 MCG TABLET GT (05:03)
[2019-07-01] MEDS: Jevity 1.5. 1,000 ML Bottle 240 ML GT (05:04)
[2019-07-01 06:18] LABS: Absolute Neutrophil Count 2.6 X10^3/uL (2.0-7.7); Basophil# 0.02 X10^3/uL; Basophil% 0.6 % (0-1); Eosinophil# 0.02 X10^3/uL; Eosinophils% 0.6 % (0-5); Hematocrit 28.6 % (40-54); Hemoglobin 9.5 g/dL (13.0-16.5); Lymphocyte % 14.8 % (19-41); Mean Corp Hgb Conc 33.2 g/dL (32-36); Mean Corpuscular Hgb 30.8 pg (27.0-32.0); Mean Corpuscular Volume 92.9 fL (80-94); Monocyte# 0.25 X10^3/uL; Monocyte% 7.4 % (0-10); NRBC Flagged by Analyzer 0 % (0-5); Neutrophil # 2.57 X10^3/uL (2.7-7.7); Neutrophil % 76.3 % (47-70); POSITIVE DIFFERENTIAL YES; Platelet Count 181 K/mm3 (150-450); RBC Distribution Width CV 13.8 % (11.6-14.6); RBC Distribution Width SD 46.9 fl (35.1-43.9); Red Blood Count 3.08 M/mm3 (4.6-6.2); White Blood Count 3.4 K/mm3 (4.4-11.0)
[2019-07-01 06:22] VITALS: PULSE 90
[2019-07-01 06:38] LABS: Differential Indicated SCAN CRITERIA MET
[2019-07-01 06:46] LABS: Differential Comment SCANNED
[2019-07-01 07:14] LABS: ALB/GLOB Ratio 0.6 RATIO (0.9-2.4); AST(SGOT) 31 U/L (15-37); Alanine Aminotransfer ALT/SGPT 21 U/L (16-61); Albumin, Serum 2.4 g/dL (3.2-5.0); Alkaline Phosphatase 67 U/L (45-117); Anion Gap 7 (5-15); BUN 4 mg/dL (7-18); BUN/Creat Ratio 6.3 RATIO (10-20); Calcium,Total 8.1 mg/dL (8.5-10.1); Chloride 94 mmol/L (98-107); Creatinine, Serum 0.63 mg/dL (0.70-1.30); EST Glomerular Filtration Rate 141 mL/min (>60); Est Glom Filt Rate - Afr Amer 170 mL/min (>60); Estimated Creatinine Clearance 110.28 ml/min; Globulin 4.1 g/dL (2.2-4.2); Glucose 105 mg/dL (74-106); Potassium 3.6 mmol/L (3.5-5.1); Protein, Total 6.5 g/dL (6.4-8.2); Sodium Level 128 mmol/L (136-145)
[2019-07-01 07:15] LABS: Bedside Glucose 80 mg/dL (70-110)
[2019-07-01 07:16] VITALS: PULSE 78; RESP 16
[2019-07-01] MEDS: Ipratropium/Albuterol Sulfate 3 ML AMPUL.NEB INHALATION (07:16)
[2019-07-01] MEDS: 0.9% Saline Lock 10 ML Syringe IV (07:21)
[2019-07-01] MEDS: Ondansetron 4 MG/2 ML Vial IV (07:21)
[2019-07-01] MEDS: Loratadine 10 MG Tablet GT (08:15)
[2019-07-01] MEDS: levoFLOXacin IV 750 MG/150 ML BAG 100 MG IV (08:20)
[2019-07-01] MEDS: Ammonium Lactate 225 gm Bottle 1 APPLIC TOPICAL (08:21)
[2019-07-01 09:10] LABS: Thyroid Stim Hormone (TSH) 4.71 uIU/mL (0.358-3.74)
[2019-07-01 09:24] LABS: Urine Sodium 31 mmol/L (Not Establ.)
[2019-07-01 10:40] VITALS: BP 102/52; PULSE 100; RESP 18; TEMP 36.3; O2SAT 97
--- NOTE | 2019-07-01 10:42 | CASEMGMT ---
KONG called the nurse at patient's care home, [facility]. She said they normally shredder picker their care home residents, but patient's guardian did mention she may pick him up. KONG told her that KONG can check with her when SW knows for sure that he will be discharged. Melani LANDRUM
--- NOTE | 2019-07-01 11:27 | CON.PCM_ITS ---
Problem List (1) Hyponatremia Status: Acute Consultation - Renal 07/01/19 PCP/ Referring MD: Requesting physician: [] Primary care physician: Danuta Trujillo MD Reason for Consultation:: Hyponatremia - History of Present Illness History of Present Illness: The patient is a 54 year old M who presented hospital with generalized weakness, hypotension, fall. Patient has history of MRDD, most of the history is from the charts. Has known history of seizures and currently takes Depakote. Previous sodium levels were 130 or so. Admitted with a sodium of 119. Incre ased to 132 today but is lower again. Apparently patient has been drinking a lot of water. Most of the history is from the charts. - Allergies Allergies: Allergies No Known Allergies Allergy (Verified 06/29/19 12:02) - Current Medications Current Medications: Current Medications Acetaminophen (Tylenol Liquid) 650 mg GT Q6H PRN PRN PRN Reason: Pain Score 1-3/Temp > 100.7 F Albuterol/Ipratropium (Duoneb) 3 ml INHALATION Q6H.RT EMPERATRIZ Last Admin: 07/01/19 07:16 Dose: 3 ml Documented by: Diazepam (Valium) 5 mg GT DAILY PRN PRN PRN Reason: ANXIETY Last Admin: 06/30/19 14:19 Dose: 5 mg Documented by: Enteral Nutritional Formula (Jevity 1.5) 240 ml GT TID EMPERATRIZ Last Admin: 07/01/19 05:04 Dose: 240 ml Documented by: Guaifenesin (Robitussin) 10 ml GT Q6H PRN PRN PRN Reason: COUGH Heparin Sodium (Porcine) (Heparin Na) 5,000 unit SC Q8 [facility] Last Admin: 07/01/19 05:03 Dose: Not Given Documented by: Levofloxacin (Levaquin Iv) 750 mg in 150 mls @ 100 mls/hr IV Q24 EMPERATRIZ Stop: 07/07/19 10:01 Last Infusion: 07/01/19 10:58 Dose: Infused Documented by: Lactic Acid (Lac-Hydrin, Amlactin) 1 applic TOPICAL DAILY EMPERATRIZ; Protocol Last Admin: 07/01/19 08:21 Dose: 1 applicatio Documented by: Levothyroxine Sodium (Synthroid) 50 mcg PO DAILY@0600 [facility] Loratadine (Claritin) 10 mg GT DAILY [facility] Last Admin: 07/01/19 08:15 Dose: 10 mg Documented by: Mirtazapine (Remeron) 15 mg GT QHS [facility] Last Admin: 06/30/19 21:07 Dose: 15 mg Documented by: Ondansetron HCl (Zofran) 4 mg IV Q8H PRN PRN PRN Reason: NAUSEA/VOMITING Last Admin: 07/01/19 07:21 Dose: 4 mg Documented by: Polyethylene Glycol (Miralax) 17 gm GT QODAY [facility] Last Admin: 06/30/19 10:14 Dose: Not Given Documented by: Ranitidine HCl (Zantac) 75 mg GT BID [facility] Last Admin: 07/01/19 08:16 Dose: 75 mg Documented by: Sodium Chloride () 10 - 40 ml IV UD PRN PRN Reason: SALINE FLUSH Last Admin: 07/01/19 07:21 Dose: 10 ml Documented by: Valproic Acid (Depakene) 250 mg GT BID [facility] - Past Medical History Past Medical History (Chronic Problems): Chronic Problems Seasonal allergic rhinitis (Chronic) Leukopenia (Chronic) Down syndrome (Chronic) Dysphagia (Chronic) Mental retardation (Chronic) Hypothyroidism (Chronic) Gastroesophageal reflux disease (Chronic) Seizure disorder (Chronic) Depression (Chronic) - Past Surgical History Surgical History: - - Hip replacement on the left due to osteonecrosis, PEG tube placement - Social History Smoking Status: Never smoker Alcohol: None Drugs: None - Family History Paternal History Items: - - prostate cancer Maternal History Items: - - breast cancer Review of Systems Constitutional: Denies: Chills, Fever, Weight Change HEENT: Denies: Head Aches, Sinus Congestion, Sinus Drainage Cardiovascular: Denies: Chest Pain, Palpitations Respiratory: Denies: Cough, Shortness of breath at rest, Sputum production Gastrointestinal: Denies: Abdominal Pain, Nausea, Vomiting Genitourinary: Denies: Dysuria Musculoskeletal: Denies: Joint Pain, Joint Tenderness Skin: Denies: Rash, Wounds Neurological: Denies: Numbness, Tingling, Focal weakness Psychiatric: Denies: Anxiety, Depression, Homicidal Ideations, Suicidal Ideations Hematologic/ Lymphatic: Denies: Easy Bruising, Easy Bleeding Patient Problems: Active and Suspected Problems Pneumonia (Acute) Hyponatremia (Acute) - Physical Exam Vitals/I&O's: Vital Signs Temp Pulse Resp BP Pulse Ox 97.3 F L 100 18 102/52 L 97 07/01/19 10:40 07/01/19 10:40 07/01/19 10:40 07/01/19 10:40 07/01/19 10:40 Oxygen Delivery Method Room Air Weight: 57.5 kg Body Mass Index (BMI) 19.8 Intake and Output for Last 24 Hours 06/29/19 06/30/19 07/01/19 23:59 23:59 23:59 Intake Total 2778.75 / 2778.75 3315.00 / 3315.00 940 / 940 Output Total 1800 / 1800 1300 / 1300 Balance 978.75 / 978.75 940 / 940 HEENT: Atraumatic, PERRLA, EOMI, Normocephalic Neck: Supple, No JVD, Negative Carotid Bruits Lungs: Clear to auscultation, Normal air movement Cardiovascular: Regular rate, No murmurs Abdomen: Bowel Sounds Present, Soft, Non Tender Extremities: No edema, Capillary Refill Less than 3 Seconds Skin: No rashes, No breakdown Musculoskeletal: No Tenderness to Palpation of Joints or Extremities Microbiology Past 72 Hours 06/30/19 05:00 Urine, Clean Catch Legionella Antigen - Final 06/30/19 05:00 Urine, Clean Catch Streptococcus pneumoniae Antigen (M - Final Laboratory Results 06/30/19 14:10: Sodium 131 L, Potassium 3.7, Chloride 101, Carbon Dioxide 25.0, Anion Gap 5, BUN 6 L, Creatinine 0.71, Estim Creat Clear Calc 97.86, Est GFR (MDRD) Af Amer 150, Est GFR (MDRD) Non-Af 124, BUN/Creatinine Ratio 8.5 L, Glucose 128 H, Calcium 8.4 L, Troponin I < 0.015 07/01/19 06:10: WBC 3.4 L, RBC 3.08 L, Hgb 9.5 L, Hct 28.6 L, MCV 92.9, MCH 30.8, MCHC 33.2, RDW Std Deviation 46.9 H, RDW Coeff of Tracy 13.8, Plt Count 181, MPV 9.0, Immature Gran % (Auto) 0.300, Neut % (Auto) 76.3 H, Lymph % (Auto) 14.8 L, [place] % (Auto) 7.4, Eos % (Auto) 0.6, Baso % (Auto) 0.6, Absolute Neuts (auto) 2.6, Absolute Lymphs (auto) 0.50 L, Nucleated RBC % 0, Differential Comment SCANNED, Diff Path Review November07/01/19 06:10: Sodium 128 L, Potassium 3.6, Chloride 94 L, Carbon Dioxide 27.0, Anion Gap 7, BUN 4 L, Creatinine 0.63 L, Estim Creat Clear Calc 110.28, Est GFR (MDRD) Af Amer 170, Est GFR (MDRD) Non-Af 141, BUN/Creatinine Ratio 6.3 L, Glucose 105, Calcium 8.1 L, Total Bilirubin 0.10 L, AST 31, ALT 21, Alkaline Phosphatase 67, Total Protein 6.5, Albumin 2.4 L, Globulin 4.1, Albumin/Globulin Ratio 0.6 L 07/01/19 06:10: TSH 4.71 H 07/01/19 06:10: Free T4 Pending, Free T3 pg/dL Pending 07/01/19 07:08: POC Glucose 80 07/01/19 09:00: Urine Creatinine 24.30 07/01/19 09:00: Ur Random Sodium 31 Current Medications Acetaminophen (Tylenol Liquid) 650 mg GT Q6H PRN PRN PRN Reason: Pain Score 1-3/Temp > 100.7 F Albuterol/Ipratropium (Duoneb) 3 ml INHALATION Q6H.RT [facility] Last Admin: 07/01/19 07:16 Dose: 3 ml Documented by: Diazepam (Valium) 5 mg GT DAILY PRN PRN PRN Reason: ANXIETY Last Admin: 06/30/19 14:19 Dose: 5 mg Documented by: Enteral Nutritional Formula (Jevity 1.5) 240 ml GT TID [facility] Last Admin: 07/01/19 05:04 Dose: 240 ml Documented by: Guaifenesin (Robitussin) 10 ml GT Q6H PRN PRN PRN Reason: COUGH Heparin Sodium (Porcine) (Heparin Na) 5,000 unit SC Q8 [facility] Last Admin: 07/01/19 05:03 Dose: Not Given Documented by: Levofloxacin (Levaquin Iv) 750 mg in 150 mls @ 100 mls/hr IV Q24 [facility] Stop: 07/07/19 10:01 Last Infusion: 07/01/19 10:58 Dose: Infused Documented by: Lactic Acid (Lac-Hydrin, Amlactin) 1 applic TOPICAL DAILY [facility]; Protocol Last Admin: 07/01/19 08:21 Dose: 1 applicatio Documented by: Levothyroxine Sodium (Synthroid) 50 mcg PO DAILY@0600 [facility]MPERATRIZ Loratadine (Claritin) 10 mg GT DAILY [facility] Last Admin: 07/01/19 08:15 Dose: 10 mg Documented by: Mirtazapine (Remeron) 15 mg GT QHS [facility] Last Admin: 06/30/19 21:07 Dose: 15 mg Documented by: Ondansetron HCl (Zofran) 4 mg IV Q8H PRN PRN PRN Reason: NAUSEA/VOMITING Last Admin: 07/01/19 07:21 Dose: 4 mg Documented by: Polyethylene Glycol (Miralax) 17 gm GT QODAY [facility] Last Admin: 06/30/19 10:14 Dose: Not Given Documented by: Ranitidine HCl (Zantac) 75 mg GT BID [facility] Last Admin: 07/01/19 08:16 Dose: 75 mg Documented by: Sodium Chloride () 10 - 40 ml IV UD PRN PRN Reason: SALINE FLUSH Last Admin: 07/01/19 07:21 Dose: 10 ml Documented by: Valproic Acid (Depakene) 250 mg GT BID [facility] Assessment/Plan All Active Problems Pneumonia (Acute) Hyponatremia (Acute) Osteonecrosis (Resolved) Hyponatremia. Chronic mild hyponatremia. Previous sodium levels were around 1 25-1 30. Admitted with a sodium of 119. Improved with fluids overnight. As per staff, patient has significant polydipsia. Rapid correction of sodium with IV fluids is also consistent with primary polydipsia. [place], fluid restriction is somewhat going to be difficult. Urine sodium 131, urine osmolality pending. Sodium is in the high 120s today. Okay to discharge home Add salt tablets to increase osmolar load since patient seems to have significant primary polydipsia Repeat BMP next week We will arrange follow-up in our office in about 2 weeks dw hospitalist
--- NOTE | 2019-07-01 11:41 | DCINST_ITS ---
- Discharge Diagnoses Current Active Problems: Current Active and Chronic Problems Pneumonia (Acute) Hyponatremia (Acute) Reason(s) for Visit for Discharge Instructions: hypotension, generalised weakness You will use the following diet at home:: Regular Your food should be the consistency of: Regular Your liquids should be the consistency of: Regular/Thin Discharge Activity: Return to Normal Activity Additional Instructions: Take note of changes to medications. Patient to complete antibiotics as precribed. Patient clotilde need repeat blood work done within [address] Trujillo is aware. Follow-up with nephrology, Dr. Wagner within 1-2 weeks. Encourage use of incentive spirometer. Allergies/Adverse Reactions: Allergies No Known Allergies Allergy (Verified 06/29/19 12:02) Medications to take at Discharge Diazepam [Valium] 5 mg GT PRN PRN 04/01/19 Mirtazapine [Remeron] 15 mg GT QHS 04/01/19 Ranitidine HCl 5 ml GT BID 04/01/19 Valproic Acid (As Sodium Salt) [Valproic Acid] 5 ml GT BID 04/01/19 Ammonium Lactate [Amlactin] 1 gm TP DAILY 04/05/19 Menthol/Zinc Oxide [Risamine Ointment] 1 applic TOPICAL TID PRN PRN 04/05/19 Polyethylene Glycol 3350 [Gavilax] 17 gm GT QODAY 04/05/19 Lactose-Reduced Food [Boost] 8 oz GT BID 06/29/19 Loratadine [Allergy] 10 mg GT DAILY 06/29/19 Levofloxacin 750 mg PO DAILY #5 tablet 07/01/19 Levothyroxine [Synthroid] 50 mcg GT DAILY@0600 #30 tablet 07/01/19 Sodium Chloride 1 gm PO TID #90 tablet 07/01/19 The following prescriptions were given: Levofloxacin 750 mg PO DAILY #5 tablet Sodium Chloride 1 gm PO TID #90 tablet Levothyroxine [Synthroid] 50 mcg GT DAILY@0600 #30 tablet Primary Care Physician: Danuta Trujillo MD [Primary Care Provider] - Please follow up with your Primary Care Physician in: within 1-2 weeks Test Results: Test results from this visit will be discussed in further detail at your follow- up appointment, if applicable. Please Follow Up With: Geremias Wagner MD When: within 2 weeks Proposed Discharge Date: 07/01/19
[2019-07-01 11:46] LABS: Free T3 1.4 pg/mL (2.18-3.98); T4 Free Direct 0.79 ng/dL (0.76-1.46)
--- NOTE | 2019-07-01 11:48 | PCM.DC.SUM ---
Discharge Date and Diagnosis Date of Admission: 06/29/19 Date of Discharge: 07/01/19 - Primary Discharge Diagnosis Active and Suspected Problems Pneumonia (Acute) Hyponatremia (Acute) Hypotension Dehydration Chest pain - Secondary Discharge Diagnosis Chronic Problems Seasonal allergic rhinitis (Chronic) Leukopenia (Chronic) Down syndrome (Chronic) Dysphagia (Chronic) Mental retardation (Chronic) Hypothyroidism (Chronic) Gastroesophageal reflux disease (Chronic) Seizure disorder (Chronic) Depression (Chronic) Hospital Course and Treatment Imaging Results: Microbiology 06/29/19 14:30 Blood Culture (Wb) - Left Forearm Blood Culture - Preliminary No growth in 48 hours. 06/29/19 14:20 Blood Culture (Wb) - Anticubital Right Blood Culture - Preliminary No growth in 48 hours. 06/30/19 05:00 Urine, Clean Catch Legionella Antigen - Final 06/30/19 05:00 Urine, Clean Catch Streptococcus pneumoniae Antigen (M - Final Clinical Impression(s) from Imaging Studies Brain CT 06/29/19 12:35 IMPRESSION: Chronic involutional changes of the brain. Electronically Signed: Miles Lauren MD at 13:45 EST , Service support , Chest X-Ray 06/29/19 13:24 IMPRESSION: Right mid and lower lung pneumonia. Electronically Signed: Miles Lauren MD at 14:06 EST , Service support , Nephrology Operations: None Procedures: None Summary of Care Provided: 54-year-old male with past medical history of MRDD, seizure disorder who comes in with hypotension, diarrhea ongoing for weeks. Patient has had no sick contacts, no fever no chills. Admitting chest x-ray showed pneumonia. His WBC count was 13.6. Lactic acid is 1.0. Sodium is 119. UA is unremarkable. He was managed on IV levaquin for pneumonia and IVF. He did not require oxygen. His BP improved with hydration. Blood cultures, urine streptococcal and legionella antigen were negative. His sodium got rapidly corrected, IVF were stopped. Patient was observed to be drinking lots of water. Nephrology was consulted. Hyponatremia was felt to be consistent with primary polydipsia. Fluid restriction was going to be a problem in the [facility]. Salt tablets prescribed for polydipsia. Patient will be followed by his primary care doctor for repeat blood work within 1 week and will see nephrology in 2 weeks. Subjective: On the day of discharge, patient was seen and examined. No complains. No acute events overnight. - Physical Exam Vitals/I&O's: Vital Signs Temp Pulse Resp BP Pulse Ox 97.3 F L 100 18 102/52 L 97 07/01/19 10:40 07/01/19 10:40 07/01/19 10:40 07/01/19 10:40 07/01/19 10:40 Oxygen Delivery Method Room Air Weight: 57.5 kg Body Mass Index (BMI) 19.8 Intake and Output for Last 24 Hours 06/29/19 06/30/19 07/01/19 23:59 23:59 23:59 Intake Total 2778.75 / 2778.75 3315.00 / 3315.00 940 / 940 Output Total 1800 / 1800 1300 / 1300 Balance 978.75 / 978.75 / 940 / 940 General: Alert, Oriented x3, Cooperative HEENT: Atraumatic, PERRLA, EOMI, Normocephalic Oral: Moist Mucosa Neck: Supple Lungs: Clear to auscultation Cardiovascular: Regular rate, Regular Rhythm, Normal S1, Normal S2, No murmurs Abdomen: Bowel Sounds Present, Soft, Non Tender, Non-Distended, No Hepato-splenomegaly Extremities: No edema Skin: No rashes Musculoskeletal: No Tenderness to Palpation of Joints or Extremities Lymphatic: No Cervical, Supraclavicular, or Inguinal Adenopathy Neurological: Cranial nerves II-XII grossly intact, Neuro grossly intact Psych/Mental Status: Normal Affect, Appropriate Microbiology Past 72 Hours 06/30/19 05:00 Urine, Clean Catch Legionella Antigen - Final 06/30/19 05:00 Urine, Clean Catch Streptococcus pneumoniae Antigen (M - Final Laboratory Results 06/30/19 14:10: Sodium 131 L, Potassium 3.7, Chloride 101, Carbon Dioxide 25.0, Anion Gap 5, BUN 6 L, Creatinine 0.71, Estim Creat Clear Calc 97.86, Est GFR (MDRD) Af Amer 150, Est GFR (MDRD) Non-Af 124, BUN/Creatinine Ratio 8.5 L, Glucose 128 H, Calcium 8.4 L, Troponin I < 0.015 07/01/19 06:10: WBC 3.4 L, RBC 3.08 L, Hgb 9.5 L, Hct 28.6 L, MCV 92.9, MCH 30.8, MCHC 33.2, RDW Std Deviation 46.9 H, RDW Coeff of [place] 13.8, Plt Count 181, MPV 9.0, Immature Gran % (Auto) 0.300, Neut % (Auto) 76.3 H, Lymph % (Auto) 14.8 L, [place] % (Auto) 7.4, Eos % (Auto) 0.6, Baso % (Auto) 0.6, Absolute Neuts (auto) 2.6, Absolute Lymphs (auto) 0.50 L, Nucleated RBC % 0, Differential Comment SCANNED, Diff Path Review November07/01/19 06:10: Sodium 128 L, Potassium 3.6, Chloride 94 L, Carbon Dioxide 27.0, Anion Gap 7, BUN 4 L, Creatinine 0.63 L, Estim Creat Clear Calc 110.28, Est GFR (MDRD) Af Amer 170, Est GFR (MDRD) Non-Af 141, BUN/Creatinine Ratio 6.3 L, Glucose 105, Calcium 8.1 L, Total Bilirubin 0.10 L, AST 31, ALT 21, Alkaline Phosphatase 67, Total Protein 6.5, Albumin 2.4 L, Globulin 4.1, Albumin/Globulin Ratio 0.6 L 07/01/19 06:10: TSH 4.71 H 07/01/19 06:10: Free T4 0.79, Free T3 pg/dL 1.4 L 07/01/19 07:08: POC Glucose 80 07/01/19 09:00: Urine Creatinine 24.30 07/01/19 09:00: Ur Random Sodium 31 07/01/19 11:35: Valproic Acid Pending Current Medications Acetaminophen (Tylenol Liquid) 650 mg GT Q6H PRN PRN PRN Reason: Pain Score 1-3/Temp > 100.7 F Albuterol/Ipratropium (Duoneb) 3 ml INHALATION Q6H.RT EMPERATRIZ Last Admin: 07/01/19 07:16 Dose: 3 ml Documented by: Diazepam (Valium) 5 mg GT DAILY PRN PRN PRN Reason: ANXIETY Last Admin: 06/30/19 14:19 Dose: 5 mg Documented by: Enteral Nutritional Formula (Jevity 1.5) 240 ml GT TID [facility] Last Admin: 07/01/19 05:04 Dose: 240 ml Documented by: Guaifenesin (Robitussin) 10 ml GT Q6H PRN PRN PRN Reason: COUGH Heparin Sodium (Porcine) (Heparin Na) 5,000 unit SC Q8 [facility] Last Admin: 07/01/19 05:03 Dose: Not Given Documented by: Levofloxacin (Levaquin Iv) 750 mg in 150 mls @ 100 mls/hr IV Q24 [facility] Stop: 07/07/19 10:01 Last Infusion: 07/01/19 10:58 Dose: Infused Documented by: Lactic Acid (Lac-Hydrin, Amlactin) 1 applic TOPICAL DAILY [facility]; Protocol Last Admin: 07/01/19 08:21 Dose: 1 applicatio Documented by: Levothyroxine Sodium (Synthroid) 50 mcg PO DAILY@0600 [facility] Loratadine (Claritin) 10 mg GT DAILY [facility] Last Admin: 07/01/19 08:15 Dose: 10 mg Documented by: Mirtazapine (Remeron) 15 mg GT QHS [facility] Last Admin: 06/30/19 21:07 Dose: 15 mg Documented by: Ondansetron HCl (Zofran) 4 mg IV Q8H PRN PRN PRN Reason: NAUSEA/VOMITING Last Admin: 07/01/19 07:21 Dose: 4 mg Documented by: Polyethylene Glycol (Miralax) 17 gm GT QODAY [facility] Last Admin: 06/30/19 10:14 Dose: Not Given Documented by: Ranitidine HCl (Zantac) 75 mg GT BID [facility] Last Admin: 07/01/19 08:16 Dose: 75 mg Documented by: Sodium Chloride () 10 - 40 ml IV UD PRN PRN Reason: SALINE FLUSH Last Admin: 07/01/19 07:21 Dose: 10 ml Documented by: Sodium Chloride (Sodium Chloride) 1 gm PO TID [facility] Valproic Acid (Depakene) 250 mg GT BID [facility] Discharge Diet: No Restrictions Discharge Activity: Return to Normal Activity Home Medications: Medications to take at Discharge Diazepam [Valium] 5 mg GT PRN PRN 04/01/19 Mirtazapine [Remeron] 15 mg GT QHS 04/01/19 Ranitidine HCl 5 ml GT BID 04/01/19 Valproic Acid (As Sodium Salt) [Valproic Acid] 5 ml GT BID 04/01/19 Ammonium Lactate [Amlactin] 1 gm TP DAILY 04/05/19 Menthol/Zinc Oxide [Risamine Ointment] 1 applic TOPICAL TID PRN PRN 04/05/19 Polyethylene Glycol 3350 [Gavilax] 17 gm GT QODAY 04/05/19 Lactose-Reduced Food [Boost] 8 oz GT BID 06/29/19 Loratadine [Allergy] 10 mg GT DAILY 06/29/19 Levofloxacin [Levaquin] 750 mg PO DAILY #5 tab 07/01/19 Levothyroxine [Synthroid] 50 mcg PO DAILY #30 tab 07/01/19 Sodium Chloride 1 gm PO TID #90 tab 07/01/19 Following Prescrptions Were Given to Patient: Levofloxacin [Levaquin] 750 mg PO DAILY #5 tab Transmission Status: Received by [address] Sodium Chloride 1 gm PO TID #90 tab Transmission Status: Received by [facility] [address] Levothyroxine [Synthroid] 50 mcg PO DAILY #30 tab Transmission Status: [facility] Primary Care Physician: Danuta Trujillo MD [Primary Care Provider] - Please follow up with your Primary Care Physician in: within 1-2 weeks Please Follow Up With: Geremias Wagner MD When: within 2 weeks Disposition: Home Minutes spent on discharge:: 40 Patient Condition:: Stable Medical Necessity - Tobacco Use Smoking Status: Never smoker Tobacco Use: Non-smoker Meaningful Use Info Meaningful Use Diagnoses (Choose all that apply): None applicable Code Visit Inpatient E&M: 26947 Disch Hosp
[2019-07-01 12:09] LABS: Osmolality, Urine 177 mOsm/KG
--- NOTE | 2019-07-01 12:29 | CASEMGMT ---
Patient is ready for discharge today. KONG called patient's guardian and left her a voice mail asking if she could return KONG's call. KONG also called Kasey and let her know KONG faxed d/c instructions. Melani LANDRUM
[2019-07-01 12:34] LABS: Valproic Acid (Depakene) Level 63 ug/mL (50-100)
--- NOTE | 2019-07-01 13:15 | CASEMGMT ---
RONNY CM Note: DC instructions faxed to [facility] @ [phone]. Cristobal GOODMAN RN ACM
--- NOTE | 2019-07-01 13:18 | CASEMGMT ---
Patient's guardian arrived at [facility]. She will be taking patient back to the longterm. After back and forth with the longterm it was decided prescriptions need to be sent to [facility]. Physician is working on this. Plan: return to longterm with scripts sent to [facility]. Melani RUTHERFORD MSW
--- NOTE | 2019-07-01 13:26 | NURSING ---
called report Kasey @ pt's long-term
[2019-07-03 12:30] LABS: Pathologist Review Reviewed
== END 2019-07-01 13:39 | disposition home or self-care (01) | DRG 194 ==
LOC: ED 14:27 → PCU 18:32
PROVIDERS: Internal Medicine Nephrology; Nurse Practitioner Family; Admitting Provider Internal Medicine; Emergency Provider Emergency Medicine; Family Provider Internal Medicine; PCP Internal Medicine; Referring Provider Internal Medicine; Visit Provider Internal Medicine
DX: J18.9 Pneumonia, unspecified organism (principal); E87.1 Hypo-osmolality and hyponatremia; E86.1 Hypovolemia; K21.9 Gastro-esophageal reflux disease without esophagitis; E03.9 Hypothyroidism, unspecified; I95.9 Hypotension, unspecified; G40.909 Epilepsy, unspecified, not intractable, without status epilepticus; E86.0 Dehydration; Q90.9 Down syndrome, unspecified; F32.9 Major depressive disorder, single episode, unspecified; R13.10 Dysphagia, unspecified; F71 Moderate intellectual disabilities; J30.2 Other seasonal allergic rhinitis
CPT/HCPCS: 36415; 70450; 71046; 80048; 80053; 80164; 81001; 82570; 82962; 83605; 83935; 84300; 84439; 84443; 84481; 84484; 85025; 85610; 85730; 87040; 87070; 87205; 87449; 93005; 94640; 97162; 97166; 97802; 99284; J7030; A4216; J2405

== ENCOUNTER 2019-07-04 11:16 | Emergency (ER) | payer MEDICARE, MEDICAID, SELFPAY ==
[2019-06-29 15:28] VITALS: BMI 19.8
[2019-07-04 11:17] VITALS: BP 86/53; PULSE 83; RESP 17; TEMP 36.4; O2SAT 99; BMI 19.2
--- NOTE | 2019-07-04 11:36 | RAD_ITS ---
STUDY: X-RAY CHEST REASON FOR EXAM: Male, 54 years old. HYPOTENSION, PNEUMONIA X 1 WEEK, DIZZINESS TECHNIQUE: Frontal and lateral views of the chest. COMPARISON: 1222 19 mm in width 5 mm in. FINDINGS: Ill-defined airspace opacities are seen in the right upper lobe, right middle lobe, right lower lobe and left lower lobe are improved compared to the previous study. There is no demonstrated pleural abnormality. Normal size heart. Normal mediastinum and karie. Normal visualized pulmonary arteries. Normal visualized aortic arch and descending thoracic aorta. Normal visualized thoracic spine. There is degenerative osteoarthritis of the bilateral shoulders. There is no demonstrated abnormality of the visualized soft tissue structures of the upper abdomen. RAD/Chest PA and Lateral IMPRESSION: Improved bilateral pneumonia. Electronically Signed: Natalie Goodwin, at 13:10 EST Tel , Service support ,
--- NOTE | 2019-07-04 11:39 | ED.DCSUM_ITS ---
- ER Visit Summary Date of Service: 07/04/19 Chief Complaint: Hypotension, weakness, dizziness History of Present Illness: The patient is a 54 M who presents with feeling weak and dizzy today. Patient [facility] a [facility]. Blood pressure at the penitentiary was as low as 66 systolic today. Patient was recently admitted for pneumonia and hyponatremia. Patient states she has been feeling weak all over. Caregiver denies any falls or syncopal episodes. Patient denies any headaches. Patient admits to intermittent chest pain. Patient denies any shortness of breath or cough. Caregiver denies any fevers or chills. Physical Examination: Vital signs are stable except for a low blood pressure of 86/53. Patient is afebrile. Patient is in no acute distress. Oral mucosa is pink and moist. Neck is supple. Trachea is midline. There is no JVD. Heart was regular rate and rhythm. Lungs are diminished bilaterally. Abdomen is soft. Bowel sounds are normal. There is no tenderness. Cranial nerves II through XII are intact. There are no focal motor or sensory deficits noted. Test Results: CBC showed a mild anemia with a hemoglobin of 10.4 hematocrit 31.3. Patient metabolic profile was essentially within normal limits. Troponin was normal. EKG showed normal sinus rhythm with a rate of 78. There are no acute ST or T wave changes noted. PA and lateral chest x-ray shows bilateral pneumonia that is improved from previous x-ray. This was interpreted by the radiologist myself. Emergency Department Course and Treatment: Patient was given IV fluids. Patient's blood pressure improved to 102/51. Patient appeared to be feeling better on reevaluation. Patient and caregiver were instructed to follow-up with the patient's primary care physician in 3 to 5 days. Patient and caregiver were instructed to continue drinking Pedialyte and Gatorade. Caregiver understood and was agreeable with the plan. All questions were answered. Disposition: Discharge home Impression: Hypotension, resolved This note was generated with [employer] dictation software. It may contain incorrect words, spelling, and punctuation that were not noted in review of the chart prio r to signing ED Disposition - Plan for ED Patient: Disposition: Home or Assisted Living Diagnosis: Hypotension, unspecified Instructions: HYPOTENSION, All Causes Referrals: Danuta Trujillo MD [Primary Care Provider] - 3-5 Days
[2019-07-04] MEDS: 0.9% Normal Saline 1,000 ML 1000 ML IV ×2 (11:41→12:32)
[2019-07-04 11:42] VITALS: BP 95/46
[2019-07-04 11:48] LABS: Absolute Lymphocyte Count 0.53 X10^3/uL (0.83-4.51); Absolute Neutrophil Count 2.6 X10^3/uL (2.0-7.7); Basophil# 0.03 X10^3/uL; Basophil% 0.8 % (0-1); Eosinophil# 0.01 X10^3/uL; Eosinophils% 0.3 % (0-5); Hematocrit 31.3 % (40-54); Hemoglobin 10.4 g/dL (13.0-16.5); Lymphocyte # 0.53 X10^3/ul (4.0); Lymphocyte % 14.2 % (19-41); Mean Corp Hgb Conc 33.2 g/dL (32-36); Mean Corpuscular Hgb 30.9 pg (27.0-32.0); Mean Corpuscular Volume 92.9 fL (80-94); Mean Platelet Vol. 8.9 fl (6.2-12.0); Monocyte# 0.51 X10^3/uL; Monocyte% 13.7 % (0-10); NRBC Flagged by Analyzer 0 % (0-5); Neutrophil # 2.63 X10^3/uL (2.7-7.7); Neutrophil % 70.5 % (47-70); POSITIVE DIFFERENTIAL YES; POSITIVE MORPHOLOGY YES; Platelet Count 260 K/mm3 (150-450); RBC Distribution Width CV 13.9 % (11.6-14.6); RBC Distribution Width SD 46.9 fl (35.1-43.9); Red Blood Count 3.37 M/mm3 (4.6-6.2); White Blood Count 3.7 K/mm3 (4.4-11.0)
[2019-07-04 11:54] LABS: Differential Indicated SCAN CRITERIA MET
[2019-07-04 11:58] LABS: International Normalized Ratio 1.1; Prothrombin Time (Protime)PT. 14.4 SECONDS (11.7-14.9)
[2019-07-04 11:59] LABS: Partial Thromboplast Time 39.2 Seconds (24.1-36.2)
[2019-07-04 12:02] LABS: ALB/GLOB Ratio 0.6 RATIO (0.9-2.4); AST(SGOT) 33 U/L (15-37); Alanine Aminotransfer ALT/SGPT 33 U/L (16-61); Albumin, Serum 2.8 g/dL (3.2-5.0); Alkaline Phosphatase 80 U/L (45-117); Anion Gap 6 (5-15); BUN 7 mg/dL (7-18); Calcium,Total 8.5 mg/dL (8.5-10.1); Chloride 94 mmol/L (98-107); EST Glomerular Filtration Rate 126 mL/min (>60); Est Glom Filt Rate - Afr Amer 152 mL/min (>60); Estimated Creatinine Clearance 96.15 ml/min; Globulin 4.4 g/dL (2.2-4.2); Glucose 80 mg/dL (74-106); Potassium 4.5 mmol/L (3.5-5.1); Protein, Total 7.2 g/dL (6.4-8.2); Sodium Level 131 mmol/L (136-145)
[2019-07-04 12:13] LABS: Lactic Acid 0.9 mmol/L (0.4-1.9)
--- NOTE | 2019-07-04 12:13 | ED.RN ---
caregiver in the room was concerned for air bubbles in the iv line. this nurse checked line and a few small bubbles were noted. caregiver had shut iv line off. a 10cc syringe was used to take bubbles out and continue bolus of fluid. caregiver took a picture of this nurses badge while care was being given.
--- NOTE | 2019-07-04 12:23 | EKG12_ITS ---
Test Reason : Blood Pressure : / mmHG Vent. Rate : 078 BPM Atrial Rate : 078 BPM P-R Int : 176 ms QRS Dur : 096 ms QT Int : 384 ms P-R-T Axes : 063 048 061 degrees QTc Int : 437 ms Normal sinus rhythm Normal ECG Confirmed by MIESHA MAGAÑA ([id number]), movie editor SHANA CHANG ([id number]) on 07/08/2019 2:53:01 PM Referred By: DARCIE Confirmed By:MIESHA MAGAÑA
[2019-07-04 12:30] VITALS: BP 102/51; PULSE 78; RESP 12; O2SAT 100
[2019-07-04 12:34] LABS: Atypical Lymphocyte 1+ %; Platelet Estimate ADEQUATE (ADEQ); Red Cell Morphology NORM C+C NORMAL (NORM C&C)
[2019-07-04 13:53] VITALS: BP 112/59; PULSE 71; RESP 16; O2SAT 100
--- NOTE | 2019-07-04 14:00 | ED.RN ---
PERMISSION TO TREAT OBTAINED FROM LEGAL GUARDIAN TACHO PEREZ. FACILITY STAFF MEMBER STATES WE SHOULD NOT CALL GUARDIAN, HE WILL SIGN ANYTHING YOU GUYS NEED. HOWEVER STAFF MEMBER UNABLE TO ANSWER ANY QUESTIONS REGARDING PT. THIS RN EXPLAINED IT WAS OUR POLICY TO OBTAIN CONSENT TO TREAT FROM LEGAL GUARDIANS.
[2019-07-07 13:37] LABS: Pathologist Review Reviewed
== END 2019-07-04 14:02 | disposition home or self-care (01) ==
PROVIDERS: Emergency Provider Emergency Medicine; Family Provider Internal Medicine; PCP Internal Medicine
DX: I95.9 Hypotension, unspecified (principal); R07.89 Other chest pain
CPT/HCPCS: 71046; 80053; 83605; 84484; 85025; 85610; 85730; 93005; 96360; 96361; 99285; J7030; A4216

== ENCOUNTER → 2019-07-16 08:32 | Outpatient (CLI) | payer MEDICARE, MEDICAID, SELFPAY ==
[2019-07-04 11:17] VITALS: BMI 19.2
[2019-07-16 10:47] LABS: Albumin, Serum 3.2 g/dL (3.2-5.0); BUN 5 mg/dL (7-18); BUN/Creat Ratio 7.6 RATIO (10-20); Calcium,Total 9.2 mg/dL (8.5-10.1); Chloride 97 mmol/L (98-107); Creatinine, Serum 0.66 mg/dL (0.70-1.30); EST Glomerular Filtration Rate 134 mL/min (>60); Est Glom Filt Rate - Afr Amer 162 mL/min (>60); Glucose 59 mg/dL (74-106); Potassium 4.2 mmol/L (3.5-5.1); Sodium Level 130 mmol/L (136-145)
== END ==
LOC: LAB.FUTURE 08:39 → LAB 08:41
PROVIDERS: Family Provider Internal Medicine; PCP Internal Medicine; Referring Provider Internal Medicine Nephrology; Visit Provider Internal Medicine Nephrology
DX: E87.1 Hypo-osmolality and hyponatremia (principal)
CPT/HCPCS: 36415; 80069

== ENCOUNTER → 2019-10-01 | Outpatient (CLI) | payer MEDICARE, MEDICAID, SELFPAY ==
[2019-10-01 09:53] LABS: Anion Gap 4 (5-15); BUN 4 mg/dL (7-18); BUN/Creat Ratio 5.8 RATIO (10-20); Calcium,Total 9.1 mg/dL (8.5-10.1); Chloride 94 mmol/L (98-107); Creatinine, Serum 0.69 mg/dL (0.70-1.30); EST Glomerular Filtration Rate 127 mL/min (>60); Est Glom Filt Rate - Afr Amer 154 mL/min (>60); Glucose 96 mg/dL (74-106); Potassium 4.2 mmol/L (3.5-5.1); Sodium Level 130 mmol/L (136-145); Thyroid Stim Hormone (TSH) 0.37 uIU/mL (0.358-3.74)
== END | disposition home or self-care (01) ==
PROVIDERS: Referring Provider Clinical Nurse Specialist; Visit Provider Clinical Nurse Specialist
DX: E87.1 Hypo-osmolality and hyponatremia (principal); E03.9 Hypothyroidism, unspecified
CPT/HCPCS: 80048; 84443

== ENCOUNTER → 2021-03-15 10:23 | Outpatient (CLI) | payer MEDICARE, MEDICAID, SELFPAY ==
[2021-03-15 12:41] LABS: Anion Gap 3 (5-15); BUN 11 mg/dL (7-18); BUN/Creat Ratio 16.9 RATIO (10-20); Calcium,Total 8.6 mg/dL (8.5-10.1); Chloride 97 mmol/L (98-107); Creatinine, Serum 0.65 mg/dL (0.70-1.30); EST Glomerular Filtration Rate 136 mL/min (>60); Est Glom Filt Rate - Afr Amer 164 mL/min (>60); Glucose 73 mg/dL (74-106); Potassium 4.2 mmol/L (3.5-5.1); Sodium Level 132 mmol/L (136-145)
== END ==
PROVIDERS: PCP Internal Medicine; Referring Provider Internal Medicine Nephrology; Visit Provider Internal Medicine Nephrology
DX: E87.1 Hypo-osmolality and hyponatremia (principal)
CPT/HCPCS: 36415; 80048

== ENCOUNTER → 2023-05-03 | Outpatient (CLI) | payer MEDICARE, MEDICAID, SELFPAY ==
[2023-05-03 12:18] LABS: Erythrocyte Sedimentation Rate 31 mm/hr (0-20)
[2023-05-03 12:22] LABS: Absolute Neutrophil Count 0.8 X10^3/uL (2.0-7.7); Basophil# 0.02 X10^3/uL; Basophil% 0.7 % (0-1); Eosinophil# 0.02 X10^3/uL; Eosinophils% 0.7 % (0-5); Hematocrit 44.5 % (40-54); Hemoglobin 14.4 g/dL (13.0-16.5); Mean Corp Hgb Conc 32.4 g/dL (32-36); Mean Corpuscular Hgb 31.4 pg (27.0-32.0); Mean Corpuscular Volume 96.9 fL (80-94); Mean Platelet Vol. 8.7 fl (6.2-12.0); Monocyte# 0.46 X10^3/uL; Monocyte% 15.4 % (0-10); NRBC Flagged by Analyzer 0 % (0-5); Neutrophil # 0.77 X10^3/uL (2.7-7.7); Neutrophil % 25.9 % (47-70); POSITIVE DIFFERENTIAL YES; Platelet Count 283 K/mm3 (150-450); RBC Distribution Width CV 12.7 % (11.6-14.6); Red Blood Count 4.59 M/mm3 (4.6-6.2)
[2023-05-03 12:47] LABS: Differential Indicated SCAN CRITERIA MET
[2023-05-03 13:11] LABS: Differential Comment SCANNED
[2023-05-03 13:59] LABS: ALB/GLOB Ratio 0.6 RATIO (0.9-2.4); AST(SGOT) 42 U/L (15-37); Alanine Aminotransfer ALT/SGPT 49 U/L (16-61); Albumin, Serum 2.9 g/dL (3.2-5.0); Alkaline Phosphatase 99 U/L (45-117); Anion Gap 8 (5-15); BUN 4 mg/dL (7-18); Calcium,Total 8.9 mg/dL (8.5-10.1); Chloride 102 mmol/L (98-107); Creatinine, Serum 1.01 mg/dL (0.70-1.30); EST Glomerular Filtration Rate 81 mL/min (>60); Est Glom Filt Rate - Afr Amer 98 mL/min (>60); Globulin 5.2 g/dL (2.2-4.2); Glucose 99 mg/dL (74-106); Potassium 4.6 mmol/L (3.5-5.1); Protein, Total 8.1 g/dL (6.4-8.2); Sodium Level 131 mmol/L (136-145); Thyroid Stim Hormone (TSH) 1.13 uIU/mL (0.358-3.74)
== END | disposition home or self-care (01) ==
LOC: MFPLAB 10:50
PROVIDERS: PCP Family Medicine; Visit Provider Family Medicine
DX: R41.82 Altered mental status, unspecified (principal); F03.90 Unspecified dementia, unspecified severity, without behavioral disturbance, psychotic disturbance, mood disturbance, and anxiety; R26.89 Other abnormalities of gait and mobility
CPT/HCPCS: 36415; 80053; 84443; 85025; 85652

== ENCOUNTER 2023-05-25 10:05 | Emergency (ER) | payer MEDICARE, MEDICAID, SELFPAY ==
[2023-05-25 10:06] VITALS: BP 108/53; PULSE 78; RESP 16; TEMP 36.4; O2SAT 100
[2023-05-25 10:18] VITALS: BMI 27.6
--- NOTE | 2023-05-25 10:19 | CT_ITS ---
STUDY: CT BRAIN WITHOUT CONTRAST REASON FOR EXAM: Male, 57 years old. Head injury due to a fall. RADIATION DOSAGE (If Supplied By Facility): CTDIvol = ( 44.99 ) mGy, DLP = ( 829.85 ) mGycm TECHNIQUE: Transaxial CT imaging of the brain was performed without administration of intravenous contrast material. Individualized dose optimization techniques were used for this CT. COMPARISON: No relevant priors. FINDINGS: Normal soft tissue structures. Normal calvarium. There is disproportionate enlargement of the lateral and third ventricles, as compared to the extra-axial spaces. The findings suggest normal pressure hydrocephalus (NPH). Normal white matter tracts of the cerebral hemispheres. Normal basal ganglia and thalami. Normal brainstem. Normal cerebellum. There is no intracranial hemorrhage. There are no findings of an acute ischemic infarction. Atherosclerotic calcification of the cavernous portions of the internal carotid arteries bilaterally. Normal visualized paranasal sinuses. CT/Brain/Head without Contrast IMPRESSION: Findings suggestive of a normal pressure hydrocephalus. Electronically Signed: Arnold Pena MD at 11:03 EST ,
--- NOTE | 2023-05-25 10:19 | EDS_ITS ---
HPI HPI - Fall History of Present Illness Chief Complaint: Fall Narrative Narrative: 57-year-old male brought in by his penitentiary workers because he reportedly fell out of bed 5 times. He has past medical history of Down syndrome, MRDD, seizure disorder, and is reportedly going through dementia. He rolled out of bed a few times last evening, but has reportedly been at his baseline. The RN reported to the worker that he fell out of bed multiple times and thought he should be evaluated in the emergency department. 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 In review of his medication list, he does not take any blood thinners. [facility] Medical History Acute pharyngitis, unspecified Seasonal allergies Seizures URI (upper respiratory infection) Home Medications valproic acid (as sodium salt) 250 mg/5 mL oral solution 5 ml G-tube BID 04/01/19 [History Last Taken Unknown] loratadine 10 mg tablet 10 mg G-tube DAILY 06/29/19 [History Last Taken Unknown] levothyroxine 50 mcg tablet 25 mcg G-tube DAILY 07/04/19 [History Last Taken Unknown] omeprazole 20 mg capsule,delayed release 20 mg PO DAILY 04/14/22 [History Last Taken Unknown] sennosides 8.6 mg tablet (senna) 8.6 mg PO DAILY 04/14/22 [History Last Taken Unknown] benzonatate 100 mg capsule 100 mg PO BID PRN cough 08/21/22 [History Last Taken Unknown] loratadine 10 mg tablet 10 mg PO DAILY 08/21/22 [History Last Taken Unknown] peg 3350-electrolytes 236 gram-22.74 gram-6.74 gram-5.86 gram solution 240 ml PO Q10M 08/21/22 [History Last Taken Unknown] donepezil 10 mg tablet 10 mg PO QHS 05/25/23 [History Last Taken Unknown] haloperidol 5 mg tablet 5 mg PO PRN 05/25/23 [History Last Taken Unknown] olanzapine 2.5 mg tablet 5 mg PO BID 05/25/23 [History Last Taken Unknown] sodium chloride 1,000 mg soluble tablet 1,000 mg PO DAILY 05/25/23 [History Last Taken Unknown] trazodone 100 mg tablet 150 mg PO QHS 05/25/23 [History Last Taken Unknown] Allergy/AdvReac Type Severity Reaction Status Date / Time No Known Allergies Allergy Verified 05/25/23 10:05 Social History Smoking Status: Never smoker ROS ROS ED ROS Narrative Limited secondary to Down syndrome/MRDD. Constitutional: No fever, no chills. HEENT: No sore throat. No neck pain. No loss of vision. No rhinorrhea. Positive swelling of right eye, in right eyebrow. Cardiovascular: No chest pain. No palpitations. No pedal edema. Respiratory: No cough, no shortness of breath. Abdominal: No abdominal pain. No nausea. No vomiting. Genitourinary: No dysuria. No hematuria. Musculoskeletal: No myalgias. No arthralgias. Neurologic: No headaches. No dizziness. No lightheadedness. Skin: No rash. No change in color. Psychiatric: No depression. No anxiety. EXAM Physical Exam Narrative Exam Narrative: Afebrile. Vital signs noted. HEENT: Normocephalic. Mild swelling of the right eyebrow. PERRL, EOMI. Neck soft and supple. No point tenderness or step off. Cardiovascular: Regular rate and rhythm. No murmurs, rubs, or gallops appreciated. Respiratory: No tachypnea. Lungs clear to auscultation bilaterally. Gastrointestinal: Abdomen soft, nontender, with normoactive bowel sounds. No rebound or guarding. Neurological: Awake. Alert. Nonfocal, nonlateralizing. Mildly interactive, states that he feels well. At baseline per penitentiary workers. Skin: No rash. Normal color. No pallor. Musculoskeletal: No pedal edema. Full range of motion extremities. Const Vital Signs: 05/25/23 10:06 Temperature 97.6 F L Temperature Source Temporal Pulse Rate 78 Respiratory Rate 16 Blood Pressure 108/53 L Blood Pressure Mean 71 Pulse Ox 100 Oxygen Delivery Method Room Air MDM MDM MDM Narrative Medical decision making narrative: In the differential diagnosis would be facial/skull fracture versus intracranial hemorrhage. The group leader semiconductor testing was requesting that CT of the brain with IV contrast be performed because he has 1 ordered by his primary care provider for Sunday. However, I do not feel that IV contrast is indicated in his traumatic head injury. CT without contrast will be obtained to rule out fracture and intracranial hemorrhage. Currently, as he is at his baseline I do not feel that any laboratory work is indicated. I reviewed the CT imaging and independently see no evidence of acute hemorrhage. I reviewed the radiology report which confirms my independent interpretation and does suggest findings of normal pressure hydrocephalus. I do feel that the patient is being worked up for this and recommended that he still get his CT imaging as an outpatient as directed by his primary care provider. I feel he can be discharged back to the penitentiary with follow-up. Return instructions to the emergency department were reviewed. I do not feel he requires admission at this time. Disposition is discharged home in stable condition. Radiography Diagnostic Testing: Clinical Impression(s) from Imaging Studies Brain CT 05/25/23 10:19 IMPRESSION: Findings suggestive of a normal pressure hydrocephalus. Electronically Signed: Arnold Pena MD at 11:03 EST , Discharge Plan Triage Chief Complaint: Fall ED Provider: Nnamdi Gonzalez Dx/Rx/DC Orders Clinical Impression: Closed head injury, Contusion of right eyebrow, Fall from bed, initial encounter Instructions: ED Eye Contusion, ED Fall with Uncertain Cause, ED Head Injury (Adult) Prescriptions: No Action omeprazole 20 mg capsule,delayed release(DR/EC) 20 mg PO DAILY Patient Comments: TAKE 1 CAPSULE ONCE DAILY PER PEG TUBE sennosides [senna] 8.6 mg tablet 8.6 mg PO DAILY Patient Comments: TAKE 1 TABLET VIA G TUBEAONCE DAILY loratadine 10 mg tablet 10 mg PO DAILY peg 3350-electrolytes 236-22.74-6.74 -5.86 gram recon soln 240 ml PO Q10M Rx Instructions: until fecal effluent is clear benzonatate 100 mg capsule 100 mg PO BID PRN (Reason: cough) valproic acid (as sodium salt) 250 MG/5 ML solution 5 ml G-tube BID Patient Comments: GIVE 5ML PER G-TUBE TWICEHDAILY loratadine 10 MG tablet 10 mg G-tube DAILY Hold Instructions: Duplicate Order levothyroxine 50 MCG tablet 25 mcg G-tube DAILY donepezil 10 mg tablet 10 mg PO QHS olanzapine 2.5 mg tablet 5 mg PO BID sodium chloride 1,000 mg tablet,soluble 1,000 mg PO DAILY trazodone 100 mg tablet 150 mg PO QHS haloperidol 5 mg tablet 5 mg PO PRN Primary Care Provider: Oscar Aguilar Referrals: Oscar Aguilar MD [Primary Care Provider] - 3-5 Days if not improving Disposition Disposition: Home, Self Care
== END 2023-05-25 11:31 | disposition home or self-care (01) ==
PROVIDERS: Emergency Provider Emergency Medicine; PCP Family Medicine; Visit Provider Emergency Medicine
DX: S00.11XA Contusion of right eyelid and periocular area, initial encounter (principal); S09.90XA Unspecified injury of head, initial encounter; W06.XXXA Fall from bed, initial encounter; Y92.89 Other specified places as the place of occurrence of the external cause
CPT/HCPCS: 70450; 99282

== ENCOUNTER → 2023-05-28 | Outpatient (CLI) | payer MEDICARE, MEDICAID, SELFPAY ==
--- NOTE | 2023-05-28 19:13 | CT_ITS ---
EXAM: CT HEAD WITHOUT AND WITH INTRAVENOUS CONTRAST CLINICAL INDICATION: change in mental status TECHNIQUE: Multiple axial images were obtained of the head without and with intravenous contrast. This CT exam was performed using one or more of the following dose reduction techniques: automated exposure control, adjustment of the mA and/or kV according to patient size, and/or use of iterative reconstruction technique. CONTRAST: ISOVUE 300 50 ML COMPARISON: 05/25/2023 FINDINGS: BRAIN AND EXTRA-AXIAL SPACES: Bulbous enlargement of the supratentorial ventricles disproportionate to the size of the sulcal spaces. Sylvian fissures appear within normal limits and there is no significant crowding of the parenchyma at the vertex. There is no mass, mass-effect, or shift of the midline structures. No evidence of acute infarct or acute intracranial hemorrhage. There is no evidence of pathologic extra-axial fluid. Patent basal cisterns. No pathologic intracranial enhancement. BONES/JOINTS: No significant abnormality. No discrete lytic or blastic abnormalities. SINUSES: No significant findings. MASTOID AIR CELLS: No significant effusion. ORBITS: No acute findings. CT/Brain/Head W/WO Contrast IMPRESSION: Persistent bulbous enlargement of the supratentorial ventricles although without other features of normal pressure hydrocephalus. This may be secondary to ex vacuo changes. No additional acute findings. Electronically Signed: Dudley Sommer DO at 23:01 EST ,
== END | disposition home or self-care (01) ==
LOC: CT 19:12
PROVIDERS: PCP Family Medicine; Visit Provider Family Medicine
DX: R41.82 Altered mental status, unspecified (principal)
CPT/HCPCS: 70470; Q9967; A4216

== ENCOUNTER 2023-06-07 08:46 | Inpatient (IN) | payer MEDICARE, MEDICAID, SELFPAY ==
[2023-06-07 08:48] VITALS: BP 109/95; PULSE 75; RESP 14; TEMP 35.6; O2SAT 99; BMI 31.1
--- NOTE | 2023-06-07 08:53 | EKG12_ITS ---
Test Reason : Blood Pressure : / mmHG Vent. Rate : 073 BPM Atrial Rate : 073 BPM P-R Int : 184 ms QRS Dur : 138 ms QT Int : 426 ms P-R-T Axes : 060 -11 035 degrees QTc Int : 469 ms Normal sinus rhythm Non-specific intra-ventricular conduction block Abnormal ECG Confirmed by PABLO GOLDBERG, MALINI ([id number]), videotape editor ESTEFANI REIS ([id number]) on 06/08/2023 9:28:49 AM Referred By: ABNER Confirmed By:MALINI SHAH MD
--- NOTE | 2023-06-07 08:53 | RAD_ITS ---
STUDY: X-RAY CHEST REASON FOR EXAM: Male, 58 years old. Sob TECHNIQUE: Single AP portable view of the chest. COMPARISON: Comparison is made with prior study dated July 04, 2019. FINDINGS: EKG electrodes are seen. Patchy bibasilar infiltrates. Linear scarring in the right mid lung. There is no demonstrated pleural abnormality. Normal size heart. Normal mediastinum and karie. Normal visualized pulmonary arteries. Normal visualized aortic arch and descending thoracic aorta. Normal visualized thoracic spine. Normal visualized ribs, clavicles, and shoulders. There is no demonstrated abnormality of the visualized soft tissue structures of the upper abdomen. RAD/Chest 1 View (Portable) IMPRESSION: Patchy bibasilar infiltrates worse on the left side with scarring in the right mid lung. Electronically Signed: Arnold Pena MD at 10:03 EST ,
--- NOTE | 2023-06-07 08:56 | EX.ED.DYSGE1 ---
HPI History of Present Illness Chief Complaint: Shortness of Breath Informant: other (longterm staff member) Onset/Context/Timing Onset: Today Context: Gradual Onset Timing: Continuous Current Severity: Moderate Maximum Severity: Moderate Narrative Narrative: 58-year-old male history of Down syndrome, mental retardation and dementia. Patient does have a legal guardian that is his sister. Reportedly from a member of the snf who is the informant because the patient is unable to give any history is basically nonverbal. He is just progressively been going downhill recently. They deny any fever. He denies any nausea or vomiting. He denies any recent fall or head injury. Patient is unable to verbalize any complaints. Prior similar symptoms: No Recent Illness/Hospitalization: No [facility] Medical History Acute pharyngitis, unspecified Hypothyroid Seasonal allergies Seizures URI (upper respiratory infection) Home Medications valproic acid (as sodium salt) 250 mg/5 mL oral solution 5 ml G-tube BID 04/01/19 [History Last Taken Unknown] loratadine 10 mg tablet 10 mg G-tube DAILY 06/29/19 [History Last Taken Unknown] levothyroxine 50 mcg tablet 25 mcg G-tube DAILY 07/04/19 [History Last Taken Unknown] omeprazole 20 mg capsule,delayed release 20 mg PO DAILY 04/14/22 [History Last Taken Unknown] sennosides 8.6 mg tablet (senna) 8.6 mg PO DAILY 04/14/22 [History Last Taken Unknown] benzonatate 100 mg capsule 100 mg PO BID PRN cough 08/21/22 [History Last Taken Unknown] loratadine 10 mg tablet 10 mg PO DAILY 08/21/22 [History Last Taken Unknown] peg 3350-electrolytes 236 gram-22.74 gram-6.74 gram-5.86 gram solution 240 ml PO Q10M 08/21/22 [History Last Taken Unknown] donepezil 10 mg tablet 10 mg PO QHS 05/25/23 [History Last Taken Unknown] haloperidol 5 mg tablet 5 mg PO PRN 05/25/23 [History Last Taken Unknown] olanzapine 2.5 mg tablet 5 mg PO BID 05/25/23 [History Last Taken Unknown] sodium chloride 1,000 mg soluble tablet 1,000 mg PO DAILY 05/25/23 [History Last Taken Unknown] trazodone 100 mg tablet 150 mg PO QHS 05/25/23 [History Last Taken Unknown] Allergy/AdvReac Type Severity Reaction Status Date / Time No Known Allergies Allergy Verified 06/07/23 08:46 Social History Smoking Status: Never smoker ROS ROS ED ROS Narrative Unable to obtain from the patient. Review of Systems ROS Unobtainable: due to mental status EXAM Physical Exam Narrative Exam Narrative: 58-year-old male. Vital signs stable afebrile. Pulse ox 99% room air no hypoxia. Patient sitting upright in bed. Currently is in no acute distress. Overall he seems subdued. Currently he is not speaking at all. H EENT exam pupils round react to light. No signs of trauma to his face or scalp. Dry mucous members. Neck nontender. No lymphadenopathy. No meningismus. Lungs clear to auscultation bilaterally. Heart regular rhythm rate about 75 no murmur. Chest wall and ribs nontender. Abdomen soft nontender. Nondistended. No peritoneal signs. Extremities are nontender. Without edema. Neurologically he will open his eyes. He is not answering any questions. He is not following any commands. Const Vital Signs: 06/07/23 08:48 06/07/23 09:20 Temperature 96.0 F L Temperature Source Temporal Pulse Rate 75 Respiratory Rate 14 Blood Pressure 109/95 H Blood Pressure Mean 99 Pulse Ox 99 Oxygen Delivery Method Room Air Room Air Positive well nourished and well developed; Negative for cachectic, contractures or unkempt General Appearance ED: well developed and NAD; Negative for unkempt, cachectic, contractures, cyanotic, diaphoretic or pallor Nutritional Appearance: Negative for cachectic HEENT Reports dry mucous membranes; Denies moist mucous membranes Negative for trauma or tenderness Mouth ED: Yes dry mucous membranes Mouth: dry mucous membranes Eyes PERRL and EOMs intact bilaterally General Eye ED: Negative for pale conjunctiva or scleral icterus Neck no lymphadenopathy and no JVD General: Negative for tenderness Lymph Lymphatic: Negative for other Chest Wall inspection of chest normal and palpation of chest normal Chest: Negative for other Resp normal respiratory effort and clear to auscultation bilaterally Effort and Inspection: Negative for retractions Auscultation: Negative for rales, rhonchi or wheezes Cardio regular rate, regular rhythm, S1 normal heart sound, S2 normal heart sound and no murmurs GI normal to inspection, nondistended, normoactive bowel sounds, non-tender, non-distended and no masses Inspection: Negative for abdominal distention Auscultation: normoactive bowel sounds Palpation: soft; Negative for tender or guarding Back/Spine no CVA tenderness General Back: Negative for CVA tenderness Cervical Spine: Negative for cervical spine tenderness Thoracic Spine / Upper Back: Negative for thoracic spinal tenderness Lumbar Spine / Lower Back: Negative for lumbar spinal tenderness Extremity normal to inspection General Extremety ED: Negative for edema or tenderness General Extremity: Negative for edema Neuro No oriented x3 Neuro Narrative: Awake. Will open his eyes. Does not answer any questions. Does not follow any commands. Sensorium / Orientation: orientation impaired and lethargic Motor Exam: Negative for strength 5/5 throughout Psych Negative for mental status grossly normal Psych Narrative: Patient nonverbal. Appearance: Negative for unkempt Attitude: No agitated Mood & Affect: Negative for depressed, anxious or tearful Skin no rashes or lesions noted and no wounds General Skin Exam: Negative for jaundice or pallor Lesions: No lesion noted Rashes: No rashes noted Trauma: Negative for abrasion Wounds: Negative for wounds noted MDM MDM MDM Narrative Medical decision making narrative: 58-year-old male retarded male with dementia from snf with decreased mental status. No recent falls or head trauma. Clinically may be dehydrated. This may be an underlying bacterial or viral illness. Labs are being obtained. Repeat exam at 10:15 AM no significant change. I believe the patient may have lower lobe pneumonia. Will be started on Rocephin and Zithromax. Blood cultures are reviewed obtained. He has received a liter of normal saline. Lactic acid is normal. I will speak to the hospitalist about admission. History & Record Review Discussion w/independent historian: Patient, Family and Other (longterm personnel.) Additional record(s) reviewed:: Prior inpatient record, Prior outpatient record, Prior ED visit and Prior labs Lab Data Attestation: I reviewed the patient's lab results. Lab results narrative: COVID and flu swabs negative. CBC shows a white count 2.4. H&H of 13 and 39. Platelets 266. Electrolytes show a sodium 133. Gap of 5. Normal BUN of 4 creatinine 0.9. Glucose 104. Lactic acid is normal at 1.2. X-ray looks like bibasilar infiltrates worse on the left. Possible atelectasis and scarring. Labs: Laboratory Results - last 24 hr 06/07/23 09:10 WBC 2.4 L RBC 4.29 L Hgb 13.1 Hct 39.9 L MCV 93.0 MCH 30.5 MCHC 32.8 RDW Std Deviation 41.9 RDW Coeff of [place] 12.4 Plt Count 266 MPV 8.7 Immature Gran % (Auto) 0.000 Neut % (Auto) 50.0 Lymph % (Auto) 32.8 [place] % (Auto) 16.0 H Eos % (Auto) 0.4 Baso % (Auto) 0.8 Absolute Neuts (auto) 1.2 L Absolute Lymphs (auto) 0.80 L Nucleated RBC % 0 Sodium 133 L Potassium 4.4 Chloride 99 Carbon Dioxide 29.0 Anion Gap 5 BUN 4 L Creatinine 0.97 Estim Creat Clear Calc 75.82 Est GFR (MDRD) Af Amer 103 Est GFR (MDRD) Non-Af 85 BUN/Creatinine Ratio 4.1 L Glucose 104 Lactic Acid 1.2 Calcium 8.9 Radiography Chest X-Ray - ED: Read by ED Physician, Heart, Mediastinum, Bony Structures, Chronic Changes, Right Infiltrate and Left Infiltrate Diagnostic Testing: Clinical Impression(s) from Imaging Studies Chest X-Ray 06/07/23 08:53 IMPRESSION: Patchy bibasilar infiltrates worse on the left side with scarring in the right mid lung. Electronically Signed: Arnold Pena MD at 10:03 EST , Chest x-ray, portable, single view interpreted both by myself and the radiologist. Peers to have bibasilar infiltrates left greater than right. Rhythm Strip Rhythm Strip: Sinus Rhythm Rate: 73 Ectopy: None EKG Initial EKG: Attestation: I personally reviewed and interpreted this EKG as follows: Interpretation: Sinus Rhythm and No Acute Injury Pattern Comments: Normal sinus rhythm rate of 73 no acute signs of OK or ischemia. Interventricular conduction delay. Discharge Plan Triage Chief Complaint: Shortness of Breath ED Provider: Landon Shannon Dx/Rx/DC Orders Clinical Impression: Community acquired bilateral lower lobe pneumonia, Down syndrome, Nonverbal, Acute alteration in mental status Prescriptions: No Action omeprazole 20 mg capsule,delayed release(DR/EC) 20 mg PO DAILY Patient Comments: TAKE 1 CAPSULE ONCE DAILY PER PEG TUBE sennosides [senna] 8.6 mg tablet 8.6 mg PO DAILY Patient Comments: TAKE 1 TABLET VIA G TUBEAONCE DAILY loratadine 10 mg tablet 10 mg PO DAILY peg 3350-electrolytes 236-22.74-6.74 -5.86 gram recon soln 240 ml PO Q10M Rx Instructions: until fecal effluent is clear benzonatate 100 mg capsule 100 mg PO BID PRN (Reason: cough) valproic acid (as sodium salt) 250 MG/5 ML solution 5 ml G-tube BID Patient Comments: GIVE 5ML PER G-TUBE TWICEHDAILY loratadine 10 MG tablet 10 mg G-tube DAILY Hold Instructions: Duplicate Order levothyroxine 50 MCG tablet 25 mcg G-tube DAILY donepezil 10 mg tablet 10 mg PO QHS olanzapine 2.5 mg tablet 5 mg PO BID sodium chloride 1,000 mg tablet,soluble 1,000 mg PO DAILY trazodone 100 mg tablet 150 mg PO QHS haloperidol 5 mg tablet 5 mg PO PRN Primary Care Provider: Oscar Aguilar Referrals: Oscar Aguilar MD [Primary Care Provider] - Disposition Disposition: [facility]
[2023-06-07 09:20] LABS: Absolute Neutrophil Count 1.2 X10^3/uL (2.0-7.7); Basophil# 0.02 X10^3/uL; Basophil% 0.8 % (0-1); Eosinophil# 0.01 X10^3/uL; Eosinophils% 0.4 % (0-5); Hematocrit 39.9 % (40-54); Hemoglobin 13.1 g/dL (13.0-16.5); Lymphocyte % 32.8 % (19-41); Mean Corp Hgb Conc 32.8 g/dL (32-36); Mean Corpuscular Hgb 30.5 pg (27.0-32.0); Mean Platelet Vol. 8.7 fl (6.2-12.0); Monocyte# 0.39 X10^3/uL; NRBC Flagged by Analyzer 0 % (0-5); Neutrophil # 1.22 X10^3/uL (2.7-7.7); Platelet Count 266 K/mm3 (150-450); RBC Distribution Width CV 12.4 % (11.6-14.6); RBC Distribution Width SD 41.9 fl (35.1-43.9); Red Blood Count 4.29 M/mm3 (4.6-6.2); White Blood Count 2.4 K/mm3 (4.4-11.0)
[2023-06-07] MEDS: 0.9% Normal Saline (1000mL) 1,000 ML 1000 ML IV (09:20)
[2023-06-07 09:36] LABS: Anion Gap 5 (5-15); BUN 4 mg/dL (7-18); BUN/Creat Ratio 4.1 RATIO (10-20); Calcium,Total 8.9 mg/dL (8.5-10.1); Chloride 99 mmol/L (98-107); Creatinine, Serum 0.97 mg/dL (0.70-1.30); EST Glomerular Filtration Rate 85 mL/min (>60); Est Glom Filt Rate - Afr Amer 103 mL/min (>60); Estimated Creatinine Clearance 75.82 ml/min; Glucose 104 mg/dL (74-106); Potassium 4.4 mmol/L (3.5-5.1); Sodium Level 133 mmol/L (136-145)
[2023-06-07 09:44] LABS: Lactic Acid 1.2 mmol/L (0.4-1.9)
[2023-06-07] MEDS: Ceftriaxone 1 GM/50 ML BAG IV (10:50)
--- NOTE | 2023-06-07 11:22 | NURSING ---
MED SURG OBS SULTANA PNEUMONIA, MR, KAVEH, FUNCTIONAL DECLINE
[2023-06-07] MEDS: Azithromycin 500 MG in Dextrose 5%-Water (250mL Bag) 250 ML 250 MG IV (11:39)
--- NOTE | 2023-06-07 11:39 | PCM.HP.STD ---
HPI - General General Date of Admission: 06/07/23 Date of Service: 06/07/23 Chief Complaint: Shallow breathing, decreased LOC HPI Narrative Barrera Farias is a 58-year-old male with history of hypothyroidism, intellectual disability, GERD, and seizure disorder who presented to [facility] 06/07/2023 from a long term due to progressive functional decline. Patient essentially nonverbal and unable to give any history. In the ED there is concern that he may have lower lobe pneumonia and he was started on Rocephin and Zithromax and given fluids and hospitalist contacted for admission. Seen with one of his sisters and semiconductor testing group leader at bedside. Sister reports he has been progressively worsening since 2021 however per semiconductor testing group leader he came in today specifically because his vitals were all low but we do not have these values and when the vitals were low they were having a very hard time waking him up and he was weak and had shallow breathing. They feel he perked up slightly here in the ED but is somewhat tired again. Has been coughing over the past few weeks and it was reported that while he eats pur?ed food and crushed meds he has been coughing when eating or drinking and there is concern that he may be aspirating. They denied any other present concerns or symptoms and ultimately would like him to go back to the long term if possible. They reported baseline sometimes he will get up and walk around often require significant assistance and only communicates certain words primarily T things he likes drinking tea. Does wear depends [facility] Medical History Acute pharyngitis, unspecified Hypothyroid Seasonal allergies Seizures URI (upper respiratory infection) Home Medications valproic acid (as sodium salt) 250 mg/5 mL oral solution 5 ml G-tube BID 04/01/19 [History Last Taken Unknown] levothyroxine 50 mcg tablet 50 mcg PO DAILY 07/04/19 [History Last Taken Unknown] omeprazole 20 mg capsule,delayed release 20 mg PO DAILY 04/14/22 [History Last Taken Unknown] sennosides 8.6 mg tablet (senna) 8.6 mg PO DAILY 04/14/22 [History Last Taken Unknown] benzonatate 100 mg capsule 100 mg PO BID PRN cough 08/21/22 [History Last Taken Unknown] loratadine 10 mg tablet 10 mg PO DAILY 08/21/22 [History Last Taken Unknown] peg 3350-electrolytes 236 gram-22.74 gram-6.74 gram-5.86 gram solution 240 ml PO Q10M 08/21/22 [History Last Taken Unknown] donepezil 10 mg tablet 10 mg PO QHS 05/25/23 [History Last Taken Unknown] haloperidol 5 mg tablet 5 mg PO PRN 05/25/23 [History Last Taken Unknown] olanzapine 2.5 mg tablet 2.5 mg PO BID 05/25/23 [History Last Taken Unknown] sodium chloride 1,000 mg soluble tablet 1,000 mg PO DAILY 05/25/23 [History Last Taken Unknown] trazodone 100 mg tablet 150 mg PO QHS 05/25/23 [History Last Taken Unknown] lorazepam 0.5 mg tablet 0.5 mg PO BID 06/07/23 [History Last Taken Unknown] trazodone 150 mg tablet 150 mg PO QHS 06/07/23 [History Last Taken Unknown] valproic acid (as sodium salt) 250 mg/5 mL oral solution 250 mg PO BID 06/07/23 [History Last Taken Unknown] Allergy/AdvReac Type Severity Reaction Status Date / Time No Known Allergies Allergy Verified 06/07/23 08:46 Social History Smoking Status: Never smoker ROS ROS Narrative Unable to obtain ROS secondary to patient's mental status Vital Signs Vital Signs Vital Signs: 06/07/23 08:48 06/07/23 09:20 Temperature 96.0 F L Temperature Source Temporal Pulse Rate 75 Respiratory Rate 14 Blood Pressure 109/95 H Blood Pressure Mean 99 Pulse Ox 99 Oxygen Delivery Method Room Air Room Air Weight Weight: 87.5 kg Body Mass Index (BMI) 31.1 Physical Exam Narrative General: Resting comfortably, wakes up and looks a you but not particularly interactive HEENT: Atraumatic, normocephalic Eyes: Anicteric, normal conjunctiva, extraocular movements grossly intact Neck: Supple Respiratory: Transmitted upper airway sounds bilaterally, normal respiratory effort Cardiovascular: Regular rate and rhythm GI: Soft, nontender, nondistended Extremities: No significant pitting edema Musculoskeletal: Moving all extremities in the bed Neuro: Unable to participate with neuro exam Skin: No rashes appreciated Psych: Difficulty cooperating secondary to mental status Results Lab / Micro Data 06/07/23 09:10 06/07/23 09:10 Labs: Laboratory Results - last 24 hr 06/07/23 09:10: WBC 2.4 L, RBC 4.29 L, Hgb 13.1, Hct 39.9 L, MCV 93.0, MCH 30.5, MCHC 32.8, RDW Std Deviation 41.9, RDW Coeff of Tracy 12.4, Plt Count 266, MPV 8.7, Immature Gran % (Auto) 0.000, Neut % (Auto) 50.0, Lymph % (Auto) 32.8, [place] % (Auto) 16.0 H, Eos % (Auto) 0.4, Baso % (Auto) 0.8, Absolute Neuts (auto) 1.2 L, Absolute Lymphs (auto) 0.80 L, Nucleated RBC % 0, Sodium 133 L, Potassium 4.4, Chloride 99, Carbon Dioxide 29.0, Anion Gap 5, BUN 4 L, Creatinine 0.97, Estim Creat Clear Calc 75.82, Est GFR (MDRD) Af Amer 103, Est GFR (MDRD) Non-Af 85, BUN/Creatinine Ratio 4.1 L, Glucose 104, Lactic Acid 1.2, Calcium 8.9 Micro: Microbiology 06/07/23 09:05 Nasal Secretion SARS-CoV-2 & FLU Antigen (Rapid) - Final Rhythm Strip Rhythm Strip: Sinus Rhythm Rate: 73 Ectopy: None Imagaing Radiology Impression Chest X-Ray 06/07/23 08:53 IMPRESSION: Patchy bibasilar infiltrates worse on the left side with scarring in the right mid lung. Electronically Signed: Arnold Pena MD at 10:03 EST , Assessment & Plan Assessment/Plan (1) Acute alteration in mental status: (2) Community acquired bilateral lower lobe pneumonia: (3) Seizures: (4) Mental retardation: (5) Hypothyroidism: (6) Gastroesophageal reflux disease: PLAN: Plan #General decline possibly 2/2 CAP with concerns for aspiration -Reportedly pt was 85% on RA for EMS -O2 sat upper 90's on RA in ED but unclear cause of functional decline and pt had CXR concerning for pneumonia -DuoNebs and as needed albuterol -Sputum culture, COVID and flu negative, respiratory panel ordered -Urine antigens -Mucinex, I/S -Rocephin and Doxy given instead of azithromycin due to patient being on other QTc prolonging medications -Patient will be n.p.o. and we will have speech eval as there is concern he is aspirating -We will check UA, TSH, liver panel, ammonia, Depakote level for further work-up of functional decline -PT/OT consult #Seizure disorder -Continue Depakote once home meds verified -We will obtain ammonia and Depakote level #Hypothyroidism -Continue Synthroid once home meds verified #GERD -Continue PPI #Intellectual disability and dementia -Sister is his legal guardian?sister at bedside endorsed she wanted him to be full code for now -Pt from long term -Supportive care -Continue home medications once verified -Per sister he can get very combative at times so we will add preemptive as needed and if he does begin having problems can consider sitter #DVT ppx: Lovenox subcu Lisa Farley MD Time spent in the patient's overall evaluation,decision-making process, review of diagnostic data, adjustment of management, discussion with other providers, nursing nursing and ancillary staff involved in patient's care documentation, 55 minutes Charges/Coding Visit Charges Inpatient E&M: 85060 Init Hosp L2
[2023-06-07 11:45] VITALS: BP 112/72; PULSE 68; RESP 13; O2SAT 100
[2023-06-07 11:47] VITALS: BP 112/72; PULSE 68; RESP 13; TEMP 36.8; O2SAT 100
[2023-06-07 14:00] VITALS: RESP 16; O2SAT 96
[2023-06-07 14:10] LABS: Valproic Acid (Depakene) Level 52 ug/mL (50-100)
[2023-06-07 14:23] LABS: Vitamin B12 406 pg/mL (211-911)
[2023-06-07 14:30] VITALS: BP 104/55; PULSE 73; RESP 16; TEMP 36.6; O2SAT 96
[2023-06-07 14:33] LABS: Thyroid Stim Hormone (TSH) 2.24 uIU/mL (0.358-3.74)
[2023-06-07 17:09] LABS: Bacteria 0 SEEN /hpf (None Seen); Mucous, Urine 0 SEEN /hpf (<or=2+); Red Blood Cells-Urine 0 SEEN /hpf (0-5); Squamous Epithelial Cells - UA 0 SEEN /hpf (0-5); White Blood Cells 0 SEEN /hpf (0-5)
[2023-06-07 17:16] LABS: Color, Urine Straw (Yellow); Glucose, Dipstick Normal (Normal); Ketone-Dipstick Negative (Negative); Leukocyte Esterase-Dipstick Negative /ul (Negative); Nitrite-Dipstick Negative (Negative); Occult Blood-Urine Negative /ul (Negative); Protein-Dipstick Negative (Negative); Specific Gravity, Urine 1.015 (1.002-1.030); Urine Bilirubin Dipstick Negative (Negative); Urine Clarity Clear (Clear); Urine Urobilinogen Normal (Normal)
[2023-06-07] MEDS: LORazepam 2 MG/ML Syringe 0.5 MG IV (18:08)
[2023-06-07 21:23] VITALS: BP 119/74; PULSE 75; RESP 16; TEMP 36.8; O2SAT 99
[2023-06-07] MEDS: Valproic Acid 250 MG/5 ML UDC PO (21:50)
[2023-06-07] MEDS: traZODone 100 MG Tablet 150 MG PO (21:50)
[2023-06-07] MEDS: guaiFENesin 1,200 MG Tablet 1200 MG PO (21:50)
[2023-06-07] MEDS: LORazepam 0.5 MG Tablet PO (21:51)
[2023-06-07] MEDS: OLANZapine 2.5 MG Tablet PO (21:51)
[2023-06-07] MEDS: Doxycycline 100 MG in Dextrose 5%-Water (250mL Bag) 250 ML 250 MG IV (22:56)
[2023-06-08 04:21] VITALS: BP 115/80; PULSE 78; RESP 16; TEMP 36.3; O2SAT 100
[2023-06-08 05:55] VITALS: BMI 27.4
[2023-06-08 06:21] LABS: Absolute Lymphocyte Count 0.95 X10^3/uL (0.83-4.51); Absolute Neutrophil Count 0.7 X10^3/uL (2.0-7.7); Basophil# 0.02 X10^3/uL; Eosinophil# 0.02 X10^3/uL; Hematocrit 38.7 % (40-54); Lymphocyte # 0.95 X10^3/ul (0.83-4.51); Lymphocyte % 46.3 % (19-41); Mean Corp Hgb Conc 33.6 g/dL (32-36); Mean Corpuscular Hgb 31.3 pg (27.0-32.0); Mean Corpuscular Volume 93.3 fL (80-94); Mean Platelet Vol. 8.9 fl (6.2-12.0); Monocyte# 0.33 X10^3/uL; Monocyte% 16.1 % (0-10); NRBC Flagged by Analyzer 0 % (0-5); Neutrophil # 0.73 X10^3/uL (2.7-7.7); Neutrophil % 35.6 % (47-70); POSITIVE DIFFERENTIAL YES; Platelet Count 271 K/mm3 (150-450); RBC Distribution Width CV 12.5 % (11.6-14.6); RBC Distribution Width SD 42.9 fl (35.1-43.9); Red Blood Count 4.15 M/mm3 (4.6-6.2); White Blood Count 2.1 K/mm3 (4.4-11.0)
[2023-06-08 06:28] LABS: Differential Indicated SCAN CRITERIA MET
--- NOTE | 2023-06-08 07:17 | PCM.PN.HOSP ---
Reason for Visit Reason for Visit: Diagnoses Hypothyroidism, unspecified (06/07/23) Unspecified intellectual disabilities (06/07/23) Pneumonia, unspecified organism (06/07/23) Gastro-esophageal reflux disease without esophagitis (06/07/23) Altered mental status, unspecified (06/07/23) Unspecified convulsions (06/07/23) Subjective Subjective Pt sitting up in bed, NAD, essentially non verbal Objective Data Objective Data Vital Signs: Vital Signs Temp Pulse Resp BP Pulse Ox O2 Del Method 97.4 F L 78 16 115/80 100 Room Air 06/08/23 04:21 06/08/23 04:21 06/08/23 04:21 06/08/23 04:21 06/08/23 04:21 06/08/23 04:21 Oxygen Delivery Method Room Air Weight: 77.065 kg Body Mass Index (BMI) 27.4 Intake & Output: Intake and Output for Last 24 Hours 06/06/23 06/07/23 06/08/23 23:59 23:59 23:59 Intake Total 1565 / 1565 0 / 0 Output Total 650 / 1050 400 / 400 Balance 915 / 515 -400 / -400 Lab / Micro Data 06/08/23 05:25 06/08/23 05:25 Labs: Laboratory Results - last 24 hr 06/07/23 09:10: WBC 2.4 L, RBC 4.29 L, Hgb 13.1, Hct 39.9 L, MCV 93.0, MCH 30.5, MCHC 32.8, RDW Std Deviation 41.9, RDW Coeff of [place] 12.4, Plt Count 266, MPV 8.7, Immature Gran % (Auto) 0.000, Neut % (Auto) 50.0, Lymph % (Auto) 32.8, [place] % (Auto) 16.0 H, Eos % (Auto) 0.4, Baso % (Auto) 0.8, Absolute Neuts (auto) 1.2 L, Absolute Lymphs (auto) 0.80 L, Nucleated RBC % 0, Sodium 133 L, Potassium 4.4, Chloride 99, Carbon Dioxide 29.0, Anion Gap 5, BUN 4 L, Creatinine 0.97, Estim Creat Clear Calc 75.82, Est GFR (MDRD) Af Amer 103, Est GFR (MDRD) Non-Af 85, BUN/Creatinine Ratio 4.1 L, Glucose 104, Lactic Acid 1.2, Calcium 8.9, TSH 2.24 06/07/23 13:00: Ammonia 30.0, Vitamin B12 406, Valproic Acid 52 06/07/23 17:00: Urine Color Straw, Urine Clarity Clear, Urine pH 8.0, Ur Specific [place] 1.015, Urine Protein Negative, Urine Glucose (UA) Normal, Urine Ketones Negative, Urine Occult Blood Negative, Urine Nitrite Negative, Urine Bilirubin Negative, Urine Urobilinogen Normal, Ur Leukocyte Esterase Negative, Urine RBC 0 SEEN, Urine WBC 0 SEEN, Ur Squamous Epith Cells 0 SEEN, Urine Bacteria 0 SEEN, Urine Mucus 0 SEEN 06/08/23 05:25: WBC 2.1 L, RBC 4.15 L, Hgb 13.0, Hct 38.7 L, MCV 93.3, MCH 31.3, MCHC 33.6, RDW Std Deviation 42.9, RDW Coeff of [place] 12.5, Plt Count 271, MPV 8.9, Immature Gran % (Auto) 0.000, Neut % (Auto) 35.6 L, Lymph % (Auto) 46.3 H, [place] % (Auto) 16.1 H, Eos % (Auto) 1.0, Baso % (Auto) 1.0, Absolute Neuts (auto) 0.7 L, Absolute Lymphs (auto) 0.95, Nucleated RBC % 0 Micro: Microbiology 06/07/23 15:50 Mucosa - Nasopharyngeal Respiratory Panel (PCR) - Final 06/07/23 17:00 Urine Catheter - Catheter Legionella Antigen - Final 06/07/23 17:00 Urine Catheter - Catheter Streptococcus pneumoniae Antigen (M - Final 06/07/23 09:05 Nasal Secretion SARS-CoV-2 & FLU Antigen (Rapid) - Final Radiography Diagnostic Testing: Radiology Impression Chest X-Ray 06/07/23 08:53 IMPRESSION: Patchy bibasilar infiltrates worse on the left side with scarring in the right mid lung. Electronically Signed: Arnold Pena MD at 10:03 EST , Rhythm Strip Rhythm Strip: Sinus Rhythm Rate: 73 Ectopy: None Physical Exam Narrative General: Alert, no apparent distress HEENT: Atraumatic, normocephalic Eyes: Anicteric Neck: Supple Respiratory: No rhonchi or wheezes, normal respiratory effort Cardiovascular: Regular rate GI: Soft, nontender, nondistended Extremities: No edema Musculoskeletal: Moving all extremities Neuro: No overt focal neurological deficits Skin: No rashes appreciated Psych: Unable to cooperate secondary mental status Assessment & Plan Assessment/Plan (1) Acute alteration in mental status: (2) Community acquired bilateral lower lobe pneumonia: (3) Seizures: (4) Mental retardation: (5) Hypothyroidism: (6) Gastroesophageal reflux disease: PLAN: Plan #General decline possibly 2/2 CAP with concerns for aspiration -Reportedly pt was 85% on RA for EMS -O2 sat upper 90's on RA in ED but unclear cause of functional decline and pt had CXR concerning for pneumonia -DuoNebs and as needed albuterol -Sputum culture, COVID and flu negative, respiratory panel ordered -Urine antigens -Mucinex, I/S -Rocephin and Doxy given instead of azithromycin due to patient being on other QTc prolonging medications -Patient will be n.p.o. and we will have speech eval as there is concern he is aspirating -We will check UA, TSH, liver panel, ammonia, Depakote level for further work-up of functional decline -PT/OT consult -06/08: Vitally stable and 100% on room air at this time. Speech eval recommended for thin liquids only and send can consider GI consult due to narrow opening at cricopharyngeus as he could not pass. erecting crane operator esophageal sphincter well. GI consulted. Continue CAP coverage. UA within normal limits, ammonia 30, TSH and B12 within normal limits, Depakote level 52, no indication of additional medical etiology for decline aside from Possible Aspiration, is more awake and alert today #Seizure disorder -Continue Depakote once home meds verified -We will obtain ammonia and Depakote level -06/08: No seizure-like activity, Depakote level 52, ammonia within normal limits #Hypothyroidism -Continue Synthroid once home meds verified -06/08: Continue Synthroid, TSH within normal limits #GERD -Continue PPI #Intellectual disability and dementia -Sister is his legal guardian?sister at bedside endorsed she wanted him to be full code for now -Pt from long-term -Supportive care -Continue home medications once verified -Per sister he can get very combative at times so we will add preemptive as needed and if he does begin having problems can consider sitter -06/08: Ativan as needed and continued Zyprexa, Depakote, trazodone. There is room to adjust Zyprexa and Depakote if needed but want to avoid oversedation #DVT ppx: Lovenox subcu Lisa Farley MD Time spent in the patient's overall evaluation,decision-making process, review of diagnostic data, adjustment of management, discussion with other providers, nursing nursing and ancillary staff involved in patient's care documentation, 35 minutes Charges/Coding Visit Charges Inpatient E&M: 78562 Subs Hosp L2
[2023-06-08 07:21] LABS: ALB/GLOB Ratio 0.6 RATIO (0.9-2.4); AST(SGOT) 36 U/L (15-37); Alanine Aminotransfer ALT/SGPT 35 U/L (16-61); Albumin, Serum 2.7 g/dL (3.2-5.0); Alkaline Phosphatase 86 U/L (45-117); Anion Gap 4 (5-15); BUN 5 mg/dL (7-18); BUN/Creat Ratio 6.1 RATIO (10-20); Calcium,Total 8.7 mg/dL (8.5-10.1); Chloride 101 mmol/L (98-107); Creatinine, Serum 0.82 mg/dL (0.70-1.30); EST Glomerular Filtration Rate 104 mL/min (>60); Est Glom Filt Rate - Afr Amer 125 mL/min (>60); Estimated Creatinine Clearance 89.69 ml/min; Globulin 4.2 g/dL (2.2-4.2); Glucose 93 mg/dL (74-106); Potassium 4.4 mmol/L (3.5-5.1); Protein, Total 6.9 g/dL (6.4-8.2); Sodium Level 132 mmol/L (136-145)
[2023-06-08 07:39] VITALS: BP 100/50; PULSE 78; RESP 15; TEMP 36.4; O2SAT 98
--- NOTE | 2023-06-08 10:06 | ST.MBS ---
Modified Barium Swallow Patient Information Study Date: 06/08/23 Study Time: 10:00 Direct Billable Minutes: 101 Total Minutes procedure & reportin Diagnosis: Dysphagia R13.10; GERD K21.9 Referring Physician: Lisa Farley Reason for Referral: Objectively assess swallow function, assess risk for aspiration, and determine recommendations for least restrictive diet textures and compensatory strategies to improve safety of swallow. Medical History: PMH: Dysphagia, Acute pharyngitis, Hypothyroid, Seasonal allergies, Seizure disorder, URI, Intellectual disability, and GERD. He presented to [facility] ED 06/07/2023 from a fdc due to progressive weakness, worsening mental status, shortness of breath, and coughing. In the ED he was given Rocephin and Zithromax given concern for lower lobe PNA. Chest X-ray 06/07/2023: Patchy bibasilar infiltrates worse on the left side w/ scarring in the right mid lung. He was made NPO and recommended for ST consult prior to diet advancement. During BSE, the AT HOME INDEPENDENT CALL CENTER AGENT recommended him for diet advancement to puree / thin liquids with plans for MBSS to further assess aspiration risk given hx of dysphagia and current bibasilar PNA. Patient has a history of severe oropharyngeal dysphagia with 2 previous MBSS completed at [facility]. Most recent MBSS (10/21/2014) recommended thin liquids only with PAS of 6 with pudding and PAS of 7 (aspiration) with mildly/nectar thick liquids. Current Diet Ordered: Puree textures / Thin liquids Dentition: Edentulous Mental Status: Impaired Respiratory Status: Oxygenating on Room Air Penetration-Aspiration Scale Penetration-Aspiration Scale: OBJECTIVE ASSESSMENT OF SWALLOW FUNCTION (QUANTITATIVE ? PER TRIAL): PENETRATION / ASPIRATION SCALE (MEDINA): 1 = does not enter airway 2 = enters airway/above vocal folds/ejected 3 = enters airway/above vocal folds/not ejected 4 = enters airway/contacts vocal folds/ejected 5 = enters airway/contacts vocal folds/not ejected 6 = enters airway/below vocal folds/ejected 7 = enters airway/below vocal folds/not ejected despite effort 8 = enters airway/below vocal folds/no effort VIDEOFLOROSCOPIC SCALE SCORE (MEDINA): Grade I = aspiration of material that has penetrated into the laryngeal vestibule, intact cough reflex Grade II = aspiration < 10 % of the bolus, intact cough reflex Grade III = aspiration of < 10 % of the bolus, reduced cough reflex or aspiration of > 10 % of the bolus, intact cough reflex Grade IV = aspiration of > 10 % of the bolus, reduced cough reflex Penetration-Aspiration Scale Score Thin Liquid via teaspoon: Result: 5= enters airways/contacts vocal folds/not ejected (no cough reflex; cannot definitively rule out aspiration due to patient's body habitus) Thin Liquid via teaspoon Trial 2: Result: 1= does not enter airway Thin Liquid via single sip: straw: Result: 1= does not enter airway Comment: Large sip Plato Thick Liquid via single sip: straw: Result: 1= does not enter airway Comment: Small sip - AT HOME INDEPENDENT CALL CENTER AGENT cued the patient to swallow Pudding via teaspoon: Result: 1= does not enter airway Comment: ESOPHAGEAL SCREEN - Retention in the lower esophagus with retrograde flow remaining well below the upper esophageal sphincter (UES). Thin Liquid via single sip: straw Trial 2: Result: 1= does not enter airway Comment: Small sip ESOPHAGEAL SCREEN - Retention in the lower esophagus. Oral Phase Labial Seal: No Labial Escape Tongue Control During Bolus Hold: Posterior escape of greater than half of bolus Bolus Transport/Lingual Motion: Repetitive/disorganized tongue motion Oral Residue: Residue collection on oral structures Pharyngeal Phase Initiation of Pharyngeal Swallow: Bolus head in pyriforms Soft Palate Elevation: No bolus between soft palate and pharyngeal wall Laryngeal Elevation: Partial superior movement thyroid cart/partial apprx aryt-epig petiole Anterior Hyoid Excursion: Partial anterior movement (inconsistent - at times full inversion) Epiglottic Movement: Partial inversion Laryngeal Vestibule Closure at Height of Swallow: Incomplete; narrow column of air/contrast in laryngeal vestibule Pharyngeal Stripping Wave: Present - diminished Pharyngoesophageal Segment Opening: Minimal distension and minimal duration; marked obstruction of flow (pudding) Tongue Base Retraction: Wide column of contrast between tongue base & post. pharyngeal wall Pharyngeal Residue: Majority of contrast within or on pharyngeal structures (~50% of pudding contrast) Esophageal Phase Esophageal Clearance: Esophageal retention w/ retrograde flow below pharyngoesophageal seg. Diagnosis/Impression Diagnosis: Moderate-severe oropharyngeal dysphagia R13.12 Impression: The oral phase is primarily marked by... -Decreased bolus control with >1/2 of the bolus spilling posteriorly to the pyriforms prior to swallow onset observed with nectar/mildly thick liquids especially. AT HOME IN[employer]ENT CALL CENTER AGENT cued the pt to initiate a swallow for mildly/nectar thick liquids. -Disorganized tongue motion for A-P transport. Mild-moderate oral residues, the patient would initiate a second swallow independently to clear moderate residues from oral cavity. -Did not complete cookie trial due to concerns for choking with oral phase deficits and poor pharyngeal clearance. The pharyngeal phase is primarily marked by... -Mildly decreased airway closure during the swallow due to partial anterior hyoid excursion, inconsistent epiglottic inversion, and decreased laryngeal elevation. -Moderate-severely decreased tongue base retraction, UES opening/duration, and pharyngeal stripping wave with resulting severe pharyngeal residues after the swallow most notable with pudding. -Deep laryngeal penetration of thin liquids via tsp to the vocal folds with no cough reflex. Cannot definitively rule out aspiration of this trial due to patient's body habitus. Due to absent cough reflex with penetration to the vocal folds, the [facility] [employer] CALL C[facility] AGENT is concerned he may be at risk for silent aspiration. The esophageal phase is primarily marked by... -Esophageal retention of pudding in lower esophagus with retrograde flow remaining well below UES. Mild retention of thin liquids in the lower esophagus. Recommendations Diet: Thin Liquids (Full THIN liquid diet) Comment: Sister, Elinor, makes the patient's medical decisions. AT HOME INDEPENDENT CALL CENTER AGENT discussed with her the patient's increased choking/aspiration risk with purees, especially adhesive purees that are not provided to him in a safe manner. AT HOME INDEPENDENT CALL CENTER AGENT and sister also discussed quality of life concerns with restricting the patient to liquids only, as he enjoys pudding, mashed potatoes, and sweet potatoes. Elinor would like to permit him pleasure/comfort feeds with moist or liquidized purees with safety precautions in place. Will recommend the patient for moist or liquidized puree for comfort/pleasure, small bites, 1-2 sips after every bite, STOP if increased signs or symptoms of aspiration (coughing, throat clearing, wet breathing, or wet vocal quality). Compensatory Strategies: Small Sips, Sips by straw only, Slow Rate (sips one at a time), Feed only when alert, Sitting upright and Remain sitting upright for 30 minutes after PO intake Supervision: Total Feed Recommend Repeat Modified Barium Swallow: TBD (Repeat MBSS if concern for increased s/s of aspiration or worsening pulmonary status.) Need for Skilled Speech Therapy Services: Yes Comment: Train family and staff in recommended diet textures and swallowing precautions to facilitate safe oral intake and decrease the patient's risk for choking and aspiration. Recommended Referrals: GI Consult Education Completed: 1. Described result of evaluation. and 4. Family/caregivers understand evaluation & agree w/ goals & tx plan. Status Active ST Patient: Active Contact Information [facility] Speech Therapy:: Donna Garcia M.A. CCC-[employer]ENT CALL CENTER AGENT Speech-Language Pathologist [facility] [address] [place] [address] [email or web address] [phone]
[2023-06-08] MEDS: Ceftriaxone 2 GM in 0.9% Normal Saline (50mL MB+) 50 ML IV (11:09)
[2023-06-08] MEDS: Enoxaparin 40 MG/0.4 ML Syringe SC (11:13)
[2023-06-08] MEDS: guaiFENesin 1,200 MG Tablet 1200 MG PO (11:14)
[2023-06-08] MEDS: LORazepam 0.5 MG Tablet PO ×2 (11:14→22:15)
[2023-06-08] MEDS: Pantoprazole Sodium 20 MG Tablet PO (11:14)
[2023-06-08] MEDS: Levothyroxine 50 MCG Tablet PO (11:15)
[2023-06-08] MEDS: OLANZapine 2.5 MG Tablet PO ×2 (11:15→22:16)
[2023-06-08] MEDS: Sodium Chloride 1 GM Tablet PO (11:16)
[2023-06-08] MEDS: Valproic Acid 250 MG/5 ML UDC PO ×2 (11:26→22:16)
--- NOTE | 2023-06-08 11:36 | NURSING ---
meds are behind, pt had procedure off unit and then iv was also leaking. had to wait until pt was alert to take meds
[2023-06-08] MEDS: Doxycycline 100 MG in Dextrose 5%-Water (250mL Bag) 250 ML 250 MG IV ×2 (12:21→22:14)
--- NOTE | 2023-06-08 13:56 | CASEMGMT ---
Addendum entered by Radha Rose 06/08/23 16:49: Phone call to Mukesh Del Valle who is pt's caregiver at the residential. Therapy evaluations reviewed and Mukesh confirms this is pt's baseline and they can accept pt back when medically ready. Mukesh can be called at time of discharge and he will arrange for transportation back to the residential. UBALDO Cadet Original Note: Social Work SW met with pt and legal Guardian Elinor Farias who is pt's sister. Elinor states pt has been living at a residential through [place] for many years. Pt has been able to able to ambulate at [facility] with staff and no device up until about a week or two ago and pt has been having functional decline and is now not able to feed himself and walking has become very difficult. alf staff provide bathing and dressing. Elinor states the plans is for the pt to return to the residential at discharge and the residential is looking for alternate placement at another residential. Pt to participate in therapy and then SW will follow up with residential to confirm return at current functional status. UBALDO Cadet
[2023-06-08 15:30] VITALS: BP 115/77; PULSE 81; RESP 16; TEMP 36.6; O2SAT 96
--- NOTE | 2023-06-08 17:43 | EX.PCM.CON.G ---
HPI Consult Data Date of Consult: 06/08/23 HPI Narrative Reason for Consultation: Abnormal swallowing study HPI Narrative: BAR PEREZ, is a 58 M who presents with shallow breathing and decreased LOC5. He has a past medical history of Down syndrome, mental retardation and dementia. Patient does have a legal guardian that is his sister. Reportedly from a member of the retirement who is the informant because the patient is unable to give any history is basically nonverbal. He is just progressively been going downhill recently. They deny any fever. He denies any nausea or vomiting. He denies any recent fall or head injury. Patient is unable to verbalize any complaints. In the ED there is concern that he may have lower lobe pneumonia and he was started on Rocephin and Zithromax and given fluids and hospitalist contacted for admission. Seen with one of his sisters and group work program director at bedside. His sister reports he has been progressively worsening since 2021. At the retirement they were having a very hard time waking him up and he was weak and had shallow breathing. They feel he perked up slightly here in the ED but is somewhat tired again. He has been coughing over the past few weeks and it was reported that while he eats pur?ed food and crushed meds he has been coughing when eating or drinking and there is concern that he may be aspirating. Since there was concern about aspiration he had a swallowing study. On the swallowing study there was a narrowing or stricture noted at the level of the cricopharyngeus this and I was asked to see the patient for oropharyngeal and esophageal dysphagia. [facility] Medical History Acute pharyngitis, unspecified Hypothyroid Seasonal allergies Seizures URI (upper respiratory infection) Home Medications valproic acid (as sodium salt) 250 mg/5 mL oral solution 5 ml G-tube BID 04/01/19 [History Last Taken Unknown] levothyroxine 50 mcg tablet 50 mcg PO DAILY 07/04/19 [History Last Taken Unknown] omeprazole 20 mg capsule,delayed release 20 mg PO DAILY 04/14/22 [History Last Taken Unknown] sennosides 8.6 mg tablet (senna) 8.6 mg PO DAILY 04/14/22 [History Last Taken Unknown] benzonatate 100 mg capsule 100 mg PO BID PRN cough 08/21/22 [History Last Taken Unknown] loratadine 10 mg tablet 10 mg PO DAILY 08/21/22 [History Last Taken Unknown] peg 3350-electrolytes 236 gram-22.74 gram-6.74 gram-5.86 gram solution 240 ml PO Q10M 08/21/22 [History Last Taken Unknown] donepezil 10 mg tablet 10 mg PO QHS 05/25/23 [History Last Taken Unknown] haloperidol 5 mg tablet 5 mg PO PRN 05/25/23 [History Last Taken Unknown] olanzapine 2.5 mg tablet 2.5 mg PO BID 05/25/23 [History Last Taken Unknown] sodium chloride 1,000 mg soluble tablet 1,000 mg PO DAILY 05/25/23 [History Last Taken Unknown] trazodone 100 mg tablet 150 mg PO QHS 05/25/23 [History Last Taken Unknown] lorazepam 0.5 mg tablet 0.5 mg PO BID 06/07/23 [History Last Taken Unknown] trazodone 150 mg tablet 150 mg PO QHS 06/07/23 [History Last Taken Unknown] valproic acid (as sodium salt) 250 mg/5 mL oral solution 250 mg PO BID 06/07/23 [History Last Taken Unknown] Allergy/AdvReac Type Severity Reaction Status Date / Time No Known Allergies Allergy Verified 06/07/23 08:46 Social History Smoking Status: Never smoker ROS ROS Narrative Unable to obtain ROS secondary to patient's mental status Physical Exam Narrative General: Alert, no apparent distress HEENT: Atraumatic, normocephalic Eyes: Anicteric Neck: Supple Respiratory: No rhonchi or wheezes, normal respiratory effort Cardiovascular: Regular rate GI: Soft, nontender, nondistended Extremities: No edema Musculoskeletal: Moving all extremities Neuro: No overt focal neurological deficits Skin: No rashes appreciated Psych: Unable to cooperate secondary mental status Lab / Micro Data 06/08/23 05:25 06/08/23 05:25 Labs: Laboratory Results - last 24 hr 06/08/23 05:25: WBC 2.1 L, RBC 4.15 L, Hgb 13.0, Hct 38.7 L, MCV 93.3, MCH 31.3, MCHC 33.6, RDW Std Deviation 42.9, RDW Coeff of Tracy 12.5, Plt Count 271, MPV 8.9, Immature Gran % (Auto) 0.000, Neut % (Auto) 35.6 L, Lymph % (Auto) 46.3 H, [place] % (Auto) 16.1 H, Eos % (Auto) 1.0, Baso % (Auto) 1.0, Absolute Neuts (auto) 0.7 L, Absolute Lymphs (auto) 0.95, Nucleated RBC % 0, Differential Comment COMMENT, Sodium 132 L, Potassium 4.4, Chloride 101, Carbon Dioxide 27.0, Anion Gap 4 L, BUN 5 L, Creatinine 0.82, Estim Creat Clear Calc 89.69, Est GFR (MDRD) Af Amer 125, Est GFR (MDRD) Non-Af 104, BUN/Creatinine Ratio 6.1 L, Glucose 93, Calcium 8.7, Total Bilirubin 0.30, AST 36, ALT 35, Alkaline Phosphatase 86, Total Protein 6.9, Albumin 2.7 L, Globulin 4.2, Albumin/Globulin Ratio 0.6 L Micro: Microbiology 06/07/23 15:50 Mucosa - Nasopharyngeal Respiratory Panel (PCR) - Final 06/07/23 17:00 Urine Catheter - Catheter Legionella Antigen - Final 06/07/23 17:00 Urine Catheter - Catheter Streptococcus pneumoniae Antigen (M - Final Rhythm Strip Rhythm Strip: Sinus Rhythm Rate: 73 Ectopy: None Assessment & Plan Assessment/Plan (1) Dysphagia: QUALIFIERS: Dysphagia type: oropharyngeal phase Qualified Code(s): R13.12 - Dysphagia, oropharyngeal phase PLAN: The differential diagnosis for his oropharyngeal and esophageal dysphagia does include esophageal motility disorder, esophageal stricture, esophageal ring, eosinophilic esophagitis, eosinophilic web., Erosive esophagitis. He will undergo an upper endoscopy. His power of attorney lawyer was explained alternatives, risk, benefits including outstanding bleeding, infection, sepsis, perforation, emergent surgery and . He will have an ASA 3. Charges/Coding Visit Charges Inpatient E&M: 32873 Init Hosp L3
[2023-06-08 20:33] VITALS: O2SAT 94
[2023-06-08 22:07] VITALS: BP 105/71; PULSE 92; RESP 18; TEMP 36.9; O2SAT 98
[2023-06-08] MEDS: traZODone 100 MG Tablet 150 MG PO (22:14)
[2023-06-09] VITALS (9 sets, daily range): BP systolic 85–123; BP diastolic 47–86; PULSE 75–93; RESP 16–18; TEMP 36.3–37.1; O2SAT 96–100; BMI 27.5
[2023-06-09] MEDS: LORazepam 2 MG/ML Syringe 0.5 MG IV (01:00)
[2023-06-09] MEDS: Donepezil HCl 10 MG Tablet PO ×2 (02:04→22:25)
[2023-06-09] MEDS: Haloperidol 5 MG Tablet PO (02:04)
[2023-06-09 06:38] LABS: Absolute Lymphocyte Count 0.93 X10^3/uL (0.83-4.51); Absolute Neutrophil Count 2.6 X10^3/uL (2.0-7.7); Basophil# 0.02 X10^3/uL; Basophil% 0.5 % (0-1); Eosinophil# 0.01 X10^3/uL; Eosinophils% 0.2 % (0-5); Hematocrit 41.9 % (40-54); Hemoglobin 14.3 g/dL (13.0-16.5); Lymphocyte # 0.93 X10^3/ul (0.83-4.51); Mean Corp Hgb Conc 34.1 g/dL (32-36); Mean Corpuscular Hgb 30.7 pg (27.0-32.0); Mean Corpuscular Volume 89.9 fL (80-94); Mean Platelet Vol. 8.8 fl (6.2-12.0); Monocyte# 0.47 X10^3/uL; Monocyte% 11.6 % (0-10); NRBC Flagged by Analyzer 0 % (0-5); Neutrophil # 2.62 X10^3/uL (2.7-7.7); Neutrophil % 64.7 % (47-70); Platelet Count 318 K/mm3 (150-450); RBC Distribution Width CV 12.1 % (11.6-14.6); RBC Distribution Width SD 39.6 fl (35.1-43.9); Red Blood Count 4.66 M/mm3 (4.6-6.2); White Blood Count 4.1 K/mm3 (4.4-11.0)
[2023-06-09 06:58] LABS: Partial Thromboplast Time 32.6 Seconds (24.1-36.2)
--- NOTE | 2023-06-09 07:00 | EGD_PTH ---
PATIENT: BAR PEREZ LOC: MS3 U#:[id number] AGE/SX: 58/M ROOM: [facility] [place] RE06/08/[address]: Dr. Yinka George MD : 1965 BED: 1 DIS: 06/15/2023 SPEC #: [id number] RECD: 06/11/23 10:13 STATUS: NICK REQ #: [id number] ELEANOR: 06/09/23 07:[address]: Christiano Gambino DEPT: SURGICAL PATHOLOGY RECD BY: Jeny Oseguera ENTERED: 06/11/23 11:24 SP TYPE: EGD BIOPSY OTHR DR: MD Dr. Yinka Smith MD Dr. Paige Pierce, MD Tissues: Esophagus, NOS Procedures: Special Stain Group I Surgery Specimen Level IV GMS Stain (control) Comments: @ Ordering doctor for SUIV edited from to @ by ADOLPH at 06/11/23 151 @ Submitting doctor edited from to @ by RGOOD at 06/11/23 1515 HEADER OPERATION: EGD PRE-OP DIAGNOSIS: Abnormal swallow study TISSUE SUBMITTED: Random esophagus biopsy MICROSCOPIC DIAGNOSIS Esophagus, random biopsy: Fragments of benign squamous epithelium with extensive superficial actinomyces colonization. Negative for malignancy. See comment. LAKISHA:neto 06/12/2023 COMMENT Special stain for fungi is negative for organisms; matched control is appropriate. Correlation with clinical, endoscopic findings and appropriate follow up are necessary. MICROSCOPIC DESCRIPTION Slides are reviewed. GROSS DESCRIPTION Received in fixative is one container labeled with the patient's name and designated random esophagus biopsy. The specimen consists of multiple irregular fragments of light limon soft tissue that in aggregate measure 1.0 x 0.2 x 0.1 cm. The specimen is totally submitted in one cassette. / LAKISHA:neto 06/11/2023 TC:5 CPT: 58811, 24891
[2023-06-09 08:32] LABS: ALB/GLOB Ratio 0.7 RATIO (0.9-2.4); AST(SGOT) 34 U/L (15-37); Alanine Aminotransfer ALT/SGPT 40 U/L (16-61); Albumin, Serum 3.2 g/dL (3.2-5.0); Alkaline Phosphatase 104 U/L (45-117); Anion Gap 7 (5-15); BUN 6 mg/dL (7-18); BUN/Creat Ratio 6.9 RATIO (10-20); Calcium,Total 9.1 mg/dL (8.5-10.1); Chloride 95 mmol/L (98-107); Creatinine, Serum 0.87 mg/dL (0.70-1.30); EST Glomerular Filtration Rate 96 mL/min (>60); Est Glom Filt Rate - Afr Amer 116 mL/min (>60); Estimated Creatinine Clearance 84.54 ml/min; Globulin 4.8 g/dL (2.2-4.2); Glucose 107 mg/dL (74-106); Sodium Level 129 mmol/L (136-145)
--- NOTE | 2023-06-09 08:53 | OP.CCLET_ITS ---
06/09/2023 Oscar Aguilar Md Re : Upper GI endoscopy procedure for Barrera Farias Dear Lauren This procedure was performed on Friday, June 09, 2023. My impressions and recommendations are as follows: Impressions : - Moderate Schatzki ring. Dilated. - Hiatal hernia. - Intact gastrostomy with a patent G-tube present characterized by healthy appearing mucosa. - No gross lesions in the duodenal bulb. - Non-severe reflux esophagitis with no bleeding. - Biopsies were taken with a cold forceps for evaluation of eosinophilic esophagitis. Recommendations : - Resume previous diet. - Continue present medications. My findings are described in the full procedure note, which is enclosed. If I can be of further assistance, please feel free to contact me at . Sincerely, Christiano Friend, 06/09/2023 8:53:06 AM This report has been signed electronically.
--- NOTE | 2023-06-09 08:53 | OP.EGD_ITS ---
Patient Name: Barrera Farias Procedure Date: 06/09/2023 6:35 AM Date of : 1965 Age: 58 Procedure: Upper GI endoscopy Indications: Dysphagia Providers: Christiano Gambino DO Medicines: Monitored Anesthesia Care Patient Profile: This is a 58 year old male. Refer to note in patient chart for documentation of history and physical. Patient has symptoms of acute dysphagia. Complications: No immediate complications. Procedure: Pre-Anesthesia Assessment: - Prior to the procedure, a History and Physical was performed, and patient medications and allergies were reviewed. The risks and benefits of the procedure and the sedation options and risks were discussed with the patient. All questions were answered and informed consent was obtained. Patient identification and proposed procedure were verified by the physician. Mental Status Examination: normal. Prophylactic Antibiotics: The patient does not require prophylactic antibiotics. Prior Anticoagulants: The patient has taken no anticoagulant or antiplatelet agents. ASA Grade Assessment: III - A patient with severe systemic disease. After reviewing the risks and benefits, the patient was deemed in satisfactory condition to undergo the procedure. The anesthesia plan was to use monitored anesthesia care (MAC). Immediately prior to administration of medications, the patient was re-assessed for adequacy to receive sedatives. The heart rate, respiratory rate, oxygen saturations, blood pressure, adequacy of pulmonary ventilation, and response to care were monitored throughout the procedure. The physical status of the patient was re-assessed after the procedure. After obtaining informed consent, the endoscope was passed under direct vision. Throughout the procedure, the patient's blood pressure, pulse, and oxygen saturations were monitored continuously. The Endoscope was introduced through the mouth, and advanced to the second part of duodenum. The upper GI endoscopy was accomplished without difficulty. The patient tolerated the procedure well. Scope In: 8:36:43 AM Scope Out: 8:45:46 AM Total Procedure Duration Time 0 hours 9 minutes 3 seconds Findings: A moderate Schatzki ring was found at the cricopharyngeus. A guidewire was placed and the scope was withdrawn. Dilation was performed with a Savary dilator with no resistance at 54 Fr. The dilation site was examined and showed moderate mucosal disruption. Estimated blood loss was minimal. A hiatal hernia was present. There was evidence of an intact gastrostomy with a patent G-tube present in the gastric body. This was characterized by healthy appearing mucosa. No gross lesions were noted in the duodenal bulb. Non-severe esophagitis with no bleeding was found 37 to 40 cm from the incisors. Biopsies were obtained from the proximal and distal esophagus with cold forceps for histology of suspected eosinophilic esophagitis. Impression: - Moderate Schatzki ring. Dilated. - Hiatal hernia. - Intact gastrostomy with a patent G-tube present characterized by healthy appearing mucosa. - No gross lesions in the duodenal bulb. - Non-severe reflux esophagitis with no bleeding. - Biopsies were taken with a cold forceps for evaluation of eosinophilic esophagitis. Recommendation: - Resume previous diet. - Continue present medications. Procedure Code(s): --- Professional --- 24345, Esophagogastroduodenoscopy, flexible, transoral; with insertion of guide wire followed by passage of dilator(s) through esophagus over guide wire 62564, 59,51, Esophagogastroduodenoscopy, flexible, transoral; with biopsy, single or multiple CPT copyright 2021 [employer]. All rights reserved. The codes documented in this report are preliminary and upon software integration developer review may be revised to meet current compliance requirements. Christiano Gambino DO 06/09/2023 8:53:06 AM This report has been signed electronically. Number of Addenda: 0 Note Initiated On: 06/09/2023 6:35 AM
[2023-06-09 08:58] LABS: Thyroid Stim Hormone (TSH) 4.41 uIU/mL (0.358-3.74)
[2023-06-09] MEDS: Lactated Ringers 1,000 ML 15 ML IV (09:01)
--- NOTE | 2023-06-09 09:05 | PCM.PN.HOSP ---
Reason for Visit Reason for Visit: Diagnoses Hypothyroidism, unspecified (06/08/23) Unspecified intellectual disabilities (06/08/23) Pneumonia, unspecified organism (06/08/23) Gastro-esophageal reflux disease without esophagitis (06/08/23) Dysphagia, oropharyngeal phase (06/08/23) Altered mental status, unspecified (06/08/23) Unspecified convulsions (06/08/23) Subjective Subjective Patient status post EGD today, seen post endoscopy and is still very tired, discussed with sister at bedside Objective Data Objective Data Vital Signs: Vital Signs Temp Pulse Resp BP Pulse Ox O2 Del Method 98.8 F 93 18 115/86 H 98 Room Air 06/09/23 04:40 06/09/23 04:40 06/09/23 04:40 06/09/23 04:40 06/09/23 04:40 06/09/23 04:40 Oxygen Delivery Method Room Air Weight: 77.6 kg Body Mass Index (BMI) 27.5 Intake & Output: Intake and Output for Last 24 Hours 06/07/23 06/08/23 06/09/23 23:59 23:59 23:59 Intake Total 1565 / 1565 570 / 570 Output Total 650 / 1050 1225 / 1225 500 / 500 Balance 915 / 515 -655 / -655 -500 / -500 Lab / Micro Data 06/09/23 06:23 06/09/23 06:23 Labs: Laboratory Results - last 24 hr 06/09/23 06:23: WBC 4.1 L, RBC 4.66, Hgb 14.3, Hct 41.9, MCV 89.9, MCH 30.7, MCHC 34.1, RDW Std Deviation 39.6, RDW Coeff of Tracy 12.1, Plt Count 318, MPV 8.8, Immature Gran % (Auto) 0.000, Neut % (Auto) 64.7, Lymph % (Auto) 23.0, [place] % (Auto) 11.6 H, Eos % (Auto) 0.2, Baso % (Auto) 0.5, Absolute Neuts (auto) 2.6, Absolute Lymphs (auto) 0.93, Nucleated RBC % 0, APTT 32.6, Sodium 129 L, Potassium 4.0, Chloride 95 L, Carbon Dioxide 27.0, Anion Gap 7, BUN 6 L, Creatinine 0.87, Estim Creat Clear Calc 84.54, Est GFR (MDRD) Af Amer 116, Est GFR (MDRD) Non-Af 96, BUN/Creatinine Ratio 6.9 L, Glucose 107 H, Calcium 9.1, Total Bilirubin 0.30, AST 34, ALT 40, Alkaline Phosphatase 104, Total Protein 8.0, Albumin 3.2, Globulin 4.8 H, Albumin/Globulin Ratio 0.7 L, TSH 4.41 H Micro: Microbiology 06/07/23 15:50 Mucosa - Nasopharyngeal Respiratory Panel (PCR) - Final 06/07/23 17:00 Urine Catheter - Catheter Legionella Antigen - Final 06/07/23 17:00 Urine Catheter - Catheter Streptococcus pneumoniae Antigen (M - Final 06/07/23 09:05 Nasal Secretion SARS-CoV-2 & FLU Antigen (Rapid) - Final Rhythm Strip Rhythm Strip: Sinus Rhythm Rate: 73 Ectopy: None Physical Exam Narrative General: Resting comfortably HEENT: Atraumatic, normocephalic Eyes: Anicteric Neck: Supple Respiratory: No rhonchi or wheezes, normal respiratory effort Cardiovascular: Regular rate GI: Soft, nontender, nondistended Extremities: No edema Musculoskeletal: Moving all extremities Neuro: No overt focal neurological deficits Skin: No rashes appreciated Psych: Unable to cooperate secondary mental status Assessment & Plan Assessment/Plan (1) Acute alteration in mental status: (2) Community acquired bilateral lower lobe pneumonia: (3) Seizures: (4) Mental retardation: (5) Hypothyroidism: (6) Gastroesophageal reflux disease: PLAN: Plan #General decline possibly 2/2 CAP with concerns for aspiration -Reportedly pt was 85% on RA for EMS -O2 sat upper 90's on RA in ED but unclear cause of functional decline and pt had CXR concerning for pneumonia -DuoNebs and as needed albuterol -Sputum culture, COVID and flu negative, respiratory panel ordered -Urine antigens -Mucinex, I/S -Rocephin and Doxy given instead of azithromycin due to patient being on other QTc prolonging medications -Patient will be n.p.o. and we will have speech eval as there is concern he is aspirating -We will check UA, TSH, liver panel, ammonia, Depakote level for further work-up of functional decline -PT/OT consult -06/08: Vitally stable and 100% on room air at this time. Speech eval recommended for thin liquids only and send can consider GI consult due to narrow opening at cricopharyngeus as he could not pass. 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 GI consulted. Continue CAP coverage. UA within normal limits, ammonia 30, TSH and B12 within normal limits, Depakote level 52, no indication of additional medical etiology for decline aside from Possible Aspiration, is more awake and alert today -06/09: Status post EGD with moderate Schatzki ring which was dilated and nonsevere reflux esophagitis, has improved overall, plan will be back to intermediate on discharge. Given patient had EGD today we will have speech reevaluate, anticipate DC in next 1 to 2 days #Dysphagia -06/09: Status post EGD with moderate Schatzki ring which was dilated and nonsevere reflux esophagitis, has improved overall, plan will be back to intermediate on discharge. Given patient had EGD today we will have speech reevaluate #Seizure disorder -Continue Depakote once home meds verified -We will obtain ammonia and Depakote level -06/08: No seizure-like activity, Depakote level 52, ammonia within normal limits #Hypothyroidism -Continue Synthroid once home meds verified -06/08: Continue Synthroid, TSH within normal limits #GERD -Continue PPI #Intellectual disability and dementia -Sister is his legal guardian?sister at bedside endorsed she wanted him to be full code for now -Pt from intermediate -Supportive care -Continue home medications once verified -Per sister he can get very combative at times so we will add preemptive as needed and if he does begin having problems can consider sitter -06/08: Ativan as needed and continued Zyprexa, Depakote, trazodone. There is room to adjust Zyprexa and Depakote if needed but want to avoid oversedation -06/09: Seems to be at baseline, continue present medications #DVT ppx: Lovenox subcu Lisa Farley MD Time spent in the patient's overall evaluation,decision-making process, review of diagnostic data, adjustment of management, discussion with other providers, nursing nursing and ancillary staff involved in patient's care documentation, 35 minutes Charges/Coding Visit Charges Inpatient E&M: 56991 Subs Hosp L2
[2023-06-09] MEDS: Ceftriaxone 2 GM in 0.9% Normal Saline (50mL MB+) 50 ML IV (10:02)
[2023-06-09] MEDS: Enoxaparin 40 MG/0.4 ML Syringe SC (10:06)
[2023-06-09] MEDS: Doxycycline 100 MG in Dextrose 5%-Water (250mL Bag) 250 ML 250 MG IV ×2 (12:03→22:19)
--- NOTE | 2023-06-09 13:06 | CASEMGMT ---
Addendum entered by Xochitl Roberts 06/09/23 13:38: Social Work SW sent a referral to [facility] for PT/OT and intermediate via [facility]. ALIZA Nicole Original Note: Social Work SW spoke w/physician earlier, she had spoken w/pt's sister, they discussed pt returning to the long-term vs. SNF. SW spoke w/pt's sister/Guardian Elinor in the room. She spoke w/long-term, she is agreeable to pt going back to the long-term. She is in agreement w/pt going back to the long-term at discharge, and agreeable to home health. List not needed, she is agreeable to whichever agency the long-term uses, which his likely [facility]. SW called long-term, spoke w/M[place]esh. He confirms they work w/N for home health. SW will send a referral via [employer]. ALIZA Nicole
[2023-06-09] MEDS: Pantoprazole Sodium 20 MG Tablet PO (13:36)
[2023-06-09] MEDS: OLANZapine 2.5 MG Tablet PO ×2 (13:36→22:27)
[2023-06-09] MEDS: guaiFENesin 1,200 MG Tablet 1200 MG PO ×2 (13:36→22:26)
[2023-06-09] MEDS: Valproic Acid 250 MG/5 ML UDC PO ×2 (13:36→22:26)
[2023-06-09] MEDS: Sodium Chloride 1 GM Tablet PO (13:37)
[2023-06-09] MEDS: LORazepam 0.5 MG Tablet PO ×2 (13:40→22:26)
[2023-06-09] MEDS: traZODone 100 MG Tablet 150 MG PO (22:25)
[2023-06-10 04:44] VITALS: BP 108/52; PULSE 80; RESP 18; TEMP 36.1; O2SAT 97
[2023-06-10] MEDS: Levothyroxine 50 MCG Tablet PO (06:08)
[2023-06-10 08:55] LABS: Absolute Lymphocyte Count 1.15 X10^3/uL (0.83-4.51); Absolute Neutrophil Count 2.3 X10^3/uL (2.0-7.7); Basophil# 0.01 X10^3/uL; Basophil% 0.2 % (0-1); Eosinophil# 0.02 X10^3/uL; Eosinophils% 0.5 % (0-5); Hematocrit 40.4 % (40-54); Hemoglobin 13.2 g/dL (13.0-16.5); Lymphocyte # 1.15 X10^3/ul (0.83-4.51); Lymphocyte % 26.4 % (19-41); Mean Corp Hgb Conc 32.7 g/dL (32-36); Mean Corpuscular Hgb 30.3 pg (27.0-32.0); Mean Corpuscular Volume 92.7 fL (80-94); Monocyte# 0.87 X10^3/uL; NRBC Flagged by Analyzer 0 % (0-5); Neutrophil # 2.29 X10^3/uL (2.7-7.7); Neutrophil % 52.7 % (47-70); Platelet Count 295 K/mm3 (150-450); RBC Distribution Width CV 12.5 % (11.6-14.6); RBC Distribution Width SD 41.9 fl (35.1-43.9); Red Blood Count 4.36 M/mm3 (4.6-6.2); White Blood Count 4.4 K/mm3 (4.4-11.0)
[2023-06-10] MEDS: Ceftriaxone 2 GM in 0.9% Normal Saline (50mL MB+) 50 ML IV (09:06)
[2023-06-10] MEDS: Enoxaparin 40 MG/0.4 ML Syringe SC (09:06)
[2023-06-10] MEDS: guaiFENesin 1,200 MG Tablet 1200 MG PO ×2 (09:06→21:33)
[2023-06-10] MEDS: LORazepam 0.5 MG Tablet PO ×2 (09:06→21:40)
[2023-06-10] MEDS: Valproic Acid 250 MG/5 ML UDC PO ×2 (09:06→21:33)
[2023-06-10] MEDS: OLANZapine 2.5 MG Tablet PO ×2 (09:07→21:33)
[2023-06-10] MEDS: Sodium Chloride 1 GM Tablet PO (09:07)
[2023-06-10] MEDS: Pantoprazole Sodium 20 MG Tablet PO (09:07)
[2023-06-10 09:31] LABS: ALB/GLOB Ratio 0.7 RATIO (0.9-2.4); AST(SGOT) 31 U/L (15-37); Alanine Aminotransfer ALT/SGPT 35 U/L (16-61); Albumin, Serum 2.8 g/dL (3.2-5.0); Alkaline Phosphatase 100 U/L (45-117); Anion Gap 7 (5-15); BUN 6 mg/dL (7-18); BUN/Creat Ratio 8.3 RATIO (10-20); Calcium,Total 8.7 mg/dL (8.5-10.1); Chloride 96 mmol/L (98-107); Creatinine, Serum 0.72 mg/dL (0.70-1.30); EST Glomerular Filtration Rate 120 mL/min (>60); Est Glom Filt Rate - Afr Amer 145 mL/min (>60); Estimated Creatinine Clearance 102.15 ml/min; Glucose 91 mg/dL (74-106); Potassium 4.6 mmol/L (3.5-5.1); Protein, Total 6.8 g/dL (6.4-8.2); Sodium Level 130 mmol/L (136-145)
[2023-06-10 09:42] VITALS: BP 101/52; PULSE 78; RESP 16; TEMP 36.1; O2SAT 100
--- NOTE | 2023-06-10 10:24 | PCM.PN.HOSP ---
Reason for Visit Reason for Visit: Diagnoses Hypothyroidism, unspecified (06/08/23) Unspecified intellectual disabilities (06/08/23) Pneumonia, unspecified organism (06/08/23) Gastro-esophageal reflux disease without esophagitis (06/08/23) Dysphagia, oropharyngeal phase (06/08/23) Altered mental status, unspecified (06/08/23) Unspecified convulsions (06/08/23) Subjective Subjective Patient sleepy, will wake up and interact but will fall back asleep, there are still concerns with his ability to swallow. Also coughing and spitting up ?sputum Objective Data Objective Data Vital Signs: Vital Signs Temp Pulse Resp BP Pulse Ox O2 Del Method 97 F L 78 16 101/52 L 100 Room Air 06/10/23 09:42 06/10/23 09:42 06/10/23 09:42 06/10/23 09:42 06/10/23 09:42 06/10/23 09:42 Oxygen Delivery Method Room Air Weight: 77.6 kg Body Mass Index (BMI) 27.5 Intake & Output: Intake and Output for Last 24 Hours 06/08/23 06/09/23 06/10/23 23:59 23:59 23:59 Intake Total 570 / 570 1027.5 / 1027.5 530 / 530 Output Total 1225 / 1225 1950 / 1950 250 / 250 Balance -655 / -655 -922.5 / -922.5 280 / 280 Lab / Micro Data 06/10/23 08:06 06/10/23 08:06 Labs: Laboratory Results - last 24 hr 06/10/23 08:06: WBC 4.4, RBC 4.36 L, Hgb 13.2, Hct 40.4, MCV 92.7, MCH 30.3, MCHC 32.7, RDW Std Deviation 41.9, RDW Coeff of [place] 12.5, Plt Count 295, MPV 9.0, Immature Gran % (Auto) 0.200, Neut % (Auto) 52.7, Lymph % (Auto) 26.4, [place] % (Auto) 20.0 H, Eos % (Auto) 0.5, Baso % (Auto) 0.2, Absolute Neuts (auto) 2.3, Absolute Lymphs (auto) 1.15, Nucleated RBC % 0, Sodium 130 L, Potassium 4.6, Chloride 96 L, Carbon Dioxide 27.0, Anion Gap 7, BUN 6 L, Creatinine 0.72, Estim Creat Clear Calc 102.15, Est GFR (MDRD) Af Amer 145, Est GFR (MDRD) Non-Af 120, BUN/Creatinine Ratio 8.3 L, Glucose 91, Calcium 8.7, Total Bilirubin 0.30, AST 31, ALT 35, Alkaline Phosphatase 100, Total Protein 6.8, Albumin 2.8 L, Globulin 4.0, Albumin/Globulin Ratio 0.7 L Micro: Microbiology 06/07/23 15:50 Mucosa - Nasopharyngeal Respiratory Panel (PCR) - Final 06/07/23 17:00 Urine Catheter - Catheter Legionella Antigen - Final 06/07/23 17:00 Urine Catheter - Catheter Streptococcus pneumoniae Antigen (M - Final 06/07/23 09:05 Nasal Secretion SARS-CoV-2 & FLU Antigen (Rapid) - Final Rhythm Strip Rhythm Strip: Sinus Rhythm Rate: 73 Ectopy: None Physical Exam Narrative General: Resting comfortably, wakes up and follows commands HEENT: Atraumatic, normocephalic Eyes: Anicteric Neck: Supple Respiratory: No rhonchi or wheezes, normal respiratory effort Cardiovascular: Regular rate GI: Soft, nontender, nondistended Extremities: No edema Musculoskeletal: Moving all extremities Neuro: No overt focal neurological deficits Skin: No rashes appreciated Psych: Unable to cooperate secondary mental status Assessment & Plan Assessment/Plan (1) Acute alteration in mental status: (2) Community acquired bilateral lower lobe pneumonia: (3) Seizures: (4) Mental retardation: (5) Hypothyroidism: (6) Gastroesophageal reflux disease: PLAN: Plan #General decline possibly 2/2 CAP with concerns for aspiration -Reportedly pt was 85% on RA for EMS -O2 sat upper 90's on RA in ED but unclear cause of functional decline and pt had CXR concerning for pneumonia -DuoNebs and as needed albuterol -Sputum culture, COVID and flu negative, respiratory panel ordered -Urine antigens -Mucinex, I/S -Rocephin and Doxy given instead of azithromycin due to patient being on other QTc prolonging medications -Patient will be n.p.o. and we will have speech eval as there is concern he is aspirating -We will check UA, TSH, liver panel, ammonia, Depakote level for further work-up of functional decline -PT/OT consult -06/08: Vitally stable and 100% on room air at this time. Speech eval recommended for thin liquids only and send can consider GI consult due to narrow opening at cricopharyngeus as he could not pass. 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 GI consulted. Continue CAP coverage. UA within normal limits, ammonia 30, TSH and B12 within normal limits, Depakote level 52, no indication of additional medical etiology for decline aside from Possible Aspiration, is more awake and alert today -06/09: Status post EGD with moderate Schatzki ring which was dilated and nonsevere reflux esophagitis, has improved overall, plan will be back to long term on discharge. Given patient had EGD today we will have speech reevaluate, anticipate DC in next 1 to 2 days -06/10: Has been spitting up but it sounds like this may be him coughing up and subsequently spitting out sputum, continue his antibiotics and present management. #Dysphagia -06/09: Status post EGD with moderate Schatzki ring which was dilated and nonsevere reflux esophagitis, has improved overall, plan will be back to long term on discharge. Given patient had EGD today we will have speech reevaluate -06/10: Still concerns that patient is not safe to swallow, receiving his Ensure through his PEG tube. Appreciate speech recommendations, may need to reintubate tube feeds if patient unable to maintain nutrition orally #Seizure disorder -Continue Depakote once home meds verified -We will obtain ammonia and Depakote level -06/08: No seizure-like activity, Depakote level 52, ammonia within normal limits #Hypothyroidism -Continue Synthroid once home meds verified -06/08: Continue Synthroid, TSH within normal limits #GERD -Continue PPI #Intellectual disability and dementia -Sister is his legal guardian?sister at bedside endorsed she wanted him to be full code for now -Pt from long term -Supportive care -Continue home medications once verified -Per sister he can get very combative at times so we will add preemptive as needed and if he does begin having problems can consider sitter -06/08: Ativan as needed and continued Zyprexa, Depakote, trazodone. There is room to adjust Zyprexa and Depakote if needed but want to avoid oversedation -06/09: Seems to be at baseline, continue present medications -06/10: Patient work with PT/OT, was too weak and tired to yesterday. Plan has been tentatively to go back to long term however this will be pending progress as patient weaker and more tired since EGD and still not maintaining nutrition #DVT ppx: Lovenox subcu Lisa Farley MD Time spent in the patient's overall evaluation,decision-making process, review of diagnostic data, adjustment of management, discussion with other providers, nursing nursing and ancillary staff involved in patient's care documentation, 35 minutes Charges/Coding Visit Charges Inpatient E&M: 98953 Subs Hosp L2
[2023-06-10] MEDS: Doxycycline 100 MG in Dextrose 5%-Water (250mL Bag) 250 ML 250 MG IV ×2 (10:50→21:33)
[2023-06-10 11:32] VITALS: BP 94/59; PULSE 75; RESP 16; TEMP 36.1; O2SAT 97
[2023-06-10 15:29] VITALS: BP 117/69; PULSE 73; RESP 16; TEMP 36.2; O2SAT 98
--- NOTE | 2023-06-10 17:28 | EX.PCM.PN.GI ---
Subjective Subjective Patient underwent EGD yesterday. He was discovered to have a ring at the level of the cricopharyngeus extending into the proximal esophagus which was dilated. He also had a patent PEG tube that was seen endoscopically. Objective Data Objective Data Vital Signs: Vital Signs Temp Pulse Resp BP Pulse Ox O2 Del Method 97.2 F L 73 16 117/69 98 Room Air 06/10/23 15:29 06/10/23 15:29 06/10/23 15:29 06/10/23 15:29 06/10/23 15:29 06/10/23 15:29 Oxygen Delivery Method Room Air Weight: 171 lb 1.259 oz Body Mass Index (BMI) 27.5 Intake & Output: Intake and Output for Last 24 Hours 06/08/23 06/09/23 06/10/23 23:59 23:59 23:59 Intake Total 570 / 570 1027.5 / 1027.5 1365 / 1365 Output Total 1225 / 1225 1950 / 1950 750 / 750 Balance -655 / -655 -922.5 / -922.5 615 / 615 Lab / Micro Data 06/10/23 08:06 06/10/23 08:06 Labs: Laboratory Results - last 24 hr 06/10/23 08:06: WBC 4.4, RBC 4.36 L, Hgb 13.2, Hct 40.4, MCV 92.7, MCH 30.3, MCHC 32.7, RDW Std Deviation 41.9, RDW Coeff of [place] 12.5, Plt Count 295, MPV 9.0, Immature Gran % (Auto) 0.200, Neut % (Auto) 52.7, Lymph % (Auto) 26.4, [place] % (Auto) 20.0 H, Eos % (Auto) 0.5, Baso % (Auto) 0.2, Absolute Neuts (auto) 2.3, Absolute Lymphs (auto) 1.15, Nucleated RBC % 0, Sodium 130 L, Potassium 4.6, Chloride 96 L, Carbon Dioxide 27.0, Anion Gap 7, BUN 6 L, Creatinine 0.72, Estim Creat Clear Calc 102.15, Est GFR (MDRD) Af Amer 145, Est GFR (MDRD) Non-Af 120, BUN/Creatinine Ratio 8.3 L, Glucose 91, Calcium 8.7, Total Bilirubin 0.30, AST 31, ALT 35, Alkaline Phosphatase 100, Total Protein 6.8, Albumin 2.8 L, Globulin 4.0, Albumin/Globulin Ratio 0.7 L Micro: Microbiology 06/09/23 13:30 Sputum, Expectorated/Coughed Gram Stain - Final 06/09/23 13:30 Sputum, Expectorated/Coughed Respiratory Culture - Preliminary Appears to be normal respiratory martin. Further studies to follow. 06/07/23 15:50 Mucosa - Nasopharyngeal Respiratory Panel (PCR) - Final 06/07/23 17:00 Urine Catheter - Catheter Legionella Antigen - Final 06/07/23 17:00 Urine Catheter - Catheter Streptococcus pneumoniae Antigen (M - Final 06/07/23 09:05 Nasal Secretion SARS-CoV-2 & FLU Antigen (Rapid) - Final Rhythm Strip Rhythm Strip: Sinus Rhythm Rate: 73 Ectopy: None Physical Exam Narrative General: Resting comfortably, wakes up and follows commands HEENT: Atraumatic, normocephalic Eyes: Anicteric Neck: Supple Respiratory: No rhonchi or wheezes, normal respiratory effort Cardiovascular: Regular rate GI: Soft, nontender, nondistended Extremities: No edema Musculoskeletal: Moving all extremities Neuro: No overt focal neurological deficits Skin: No rashes appreciated Psych: Unable to cooperate secondary mental status Assessment & Plan Assessment/Plan (1) Acute alteration in mental status: (2) Nonverbal: (3) Dysphagia: QUALIFIERS: Dysphagia type: oropharyngeal phase Qualified Code(s): R13.12 - Dysphagia, oropharyngeal phase PLAN: Plan 58-year-old nonverbal gentleman with history of esophageal dysphagia status post PEG tube comes in with worsening shortness of breath and altered mental status discovered to have pneumonia. He failed a swallowing study. I am not sure about his level of swallowing continue to require the need of a PEG tube for alternative nutrition. -Dysphagia-status post dilation. I think he needs an repeat swallowing study. I felt like he is coughing possibly secondary to the pneumonia. He has multiple risk factor for aspiration pneumonia including the PEG tube and oropharyngeal dysphagia with likely esophageal dysphagia. Will continue to follow. Charges/Coding Visit Charges Inpatient E&M: 54571 Subs Hosp L3
[2023-06-10 21:25] VITALS: BP 101/71; PULSE 91; RESP 18; TEMP 36.4; O2SAT 97
[2023-06-10] MEDS: Donepezil HCl 10 MG Tablet PO (21:33)
[2023-06-10] MEDS: traZODone 100 MG Tablet 150 MG PO (21:33)
[2023-06-11 03:37] VITALS: BP 120/69; PULSE 87; RESP 18; TEMP 36.6; O2SAT 98
[2023-06-11] MEDS: Levothyroxine 50 MCG Tablet PO (03:43)
[2023-06-11 06:00] VITALS: BMI 27.6
[2023-06-11 06:42] LABS: Absolute Lymphocyte Count 1.06 X10^3/uL (0.83-4.51); Absolute Neutrophil Count 1.4 X10^3/uL (2.0-7.7); Basophil# 0.01 X10^3/uL; Basophil% 0.3 % (0-1); Eosinophil# 0.05 X10^3/uL; Eosinophils% 1.7 % (0-5); Hematocrit 40.3 % (40-54); Hemoglobin 13.4 g/dL (13.0-16.5); Lymphocyte # 1.06 X10^3/ul (0.83-4.51); Lymphocyte % 35.3 % (19-41); Mean Corp Hgb Conc 33.3 g/dL (32-36); Mean Corpuscular Hgb 30.4 pg (27.0-32.0); Mean Corpuscular Volume 91.4 fL (80-94); Monocyte# 0.52 X10^3/uL; Monocyte% 17.3 % (0-10); NRBC Flagged by Analyzer 0 % (0-5); Neutrophil # 1.35 X10^3/uL (2.7-7.7); Neutrophil % 45.1 % (47-70); Platelet Count 317 K/mm3 (150-450); RBC Distribution Width SD 40.4 fl (35.1-43.9); Red Blood Count 4.41 M/mm3 (4.6-6.2)
--- NOTE | 2023-06-11 07:41 | PCM.PN.HOSP ---
Reason for Visit Reason for Visit: Diagnoses Hypothyroidism, unspecified (06/08/23) Unspecified intellectual disabilities (06/08/23) Pneumonia, unspecified organism (06/08/23) Gastro-esophageal reflux disease without esophagitis (06/08/23) Dysphagia, oropharyngeal phase (06/08/23) Altered mental status, unspecified (06/08/23) Aphasia (06/08/23) Unspecified convulsions (06/08/23) Objective Data Objective Data Vital Signs: Vital Signs Temp Pulse Resp BP Pulse Ox O2 Del Method 97.9 F 87 18 120/69 98 Room Air 06/11/23 03:37 06/11/23 03:37 06/11/23 03:37 06/11/23 03:37 06/11/23 03:37 06/11/23 03:37 Oxygen Delivery Method Room Air Weight: 77.9 kg Body Mass Index (BMI) 27.6 Intake & Output: Intake and Output for Last 24 Hours 06/09/23 06/10/23 06/11/23 23:59 23:59 23:59 Intake Total 1027.5 / 1027.5 2475 / 2475 340 / 340 Output Total 1950 / 1950 1600 / 1600 700 / 700 Balance -922.5 / -922.5 875 / 875 -360 / -360 Lab / Micro Data 06/11/23 05:10 06/11/23 05:10 Labs: Laboratory Results - last 24 hr 06/10/23 08:06: WBC 4.4, RBC 4.36 L, Hgb 13.2, Hct 40.4, MCV 92.7, MCH 30.3, MCHC 32.7, RDW Std Deviation 41.9, RDW Coeff of Tracy 12.5, Plt Count 295, MPV 9.0, Immature Gran % (Auto) 0.200, Neut % (Auto) 52.7, Lymph % (Auto) 26.4, [place] % (Auto) 20.0 H, Eos % (Auto) 0.5, Baso % (Auto) 0.2, Absolute Neuts (auto) 2.3, Absolute Lymphs (auto) 1.15, Nucleated RBC % 0, Sodium 130 L, Potassium 4.6, Chloride 96 L, Carbon Dioxide 27.0, Anion Gap 7, BUN 6 L, Creatinine 0.72, Estim Creat Clear Calc 102.15, Est GFR (MDRD) Af Amer 145, Est GFR (MDRD) Non-Af 120, BUN/Creatinine Ratio 8.3 L, Glucose 91, Calcium 8.7, Total Bilirubin 0.30, AST 31, ALT 35, Alkaline Phosphatase 100, Total Protein 6.8, Albumin 2.8 L, Globulin 4.0, Albumin/Globulin Ratio 0.7 L 06/11/23 05:10: WBC 3.0 L, RBC 4.41 L, Hgb 13.4, Hct 40.3, MCV 91.4, MCH 30.4, MCHC 33.3, RDW Std Deviation 40.4, RDW Coeff of [place] 12.0, Plt Count 317, MPV 9.0, Immature Gran % (Auto) 0.300, Neut % (Auto) 45.1 L, Lymph % (Auto) 35.3, [place] % (Auto) 17.3 H, Eos % (Auto) 1.7, Baso % (Auto) 0.3, Absolute Neuts (auto) 1.4 L, Absolute Lymphs (auto) 1.06, Nucleated RBC % 0 Micro: Microbiology 06/09/23 13:30 Sputum, Expectorated/Coughed Gram Stain - Final 06/09/23 13:30 Sputum, Expectorated/Coughed Respiratory Culture - Preliminary Appears to be normal respiratory martin. Further studies to follow. 06/07/23 15:50 Mucosa - Nasopharyngeal Respiratory Panel (PCR) - Final 06/07/23 17:00 Urine Catheter - Catheter Legionella Antigen - Final 06/07/23 17:00 Urine Catheter - Catheter Streptococcus pneumoniae Antigen (M - Final 06/07/23 09:05 Nasal Secretion SARS-CoV-2 & FLU Antigen (Rapid) - Final Rhythm Strip Rhythm Strip: Sinus Rhythm Rate: 73 Ectopy: None Physical Exam Narrative GENERAL: Patient in no apparent distress HEENT: Atraumatic; normocephalic EYES; Anicteric, Normal Conjunctiva NECK; supple, normal thyroid, RESPIRATORY: Diminished to auscultation CARDIOVASCULAR: Regular S1 S2, GI: soft, normoactive bowel sounds, : No Renal angle tenderness; EXTREMITIES: No edema, no clubbing, MUSCULOSKELETAL: no muscle wasting NEURO: Awake; no lateralizing signs. SKIN: No Rash PSYCH; Flat affect Assessment & Plan Assessment/Plan (1) Acute alteration in mental status: (2) Community acquired bilateral lower lobe pneumonia: (3) Seizures: (4) Mental retardation: (5) Hypothyroidism: (6) Gastroesophageal reflux disease: PLAN: Plan Patient is a 58-year-old gentleman with history of Down syndrome with learning disability resident at the [facility] who was brought to the ED with progressive generalized weakness was a suspicion of possible aspiration pneumonia. 1. Suspected aspiration pneumonia ? Patient was managed with Rocephin and doxycycline and kept n.p.o. 2. Dysphagia ? Status post EGD which found moderate Schatzki ring which was dilated as well as nonsevere reflux esophagitis. Plans for patient to undergo modified barium swallow and if unable to tolerate oral diet patient already has a PEG tube in situ 3. Seizure disorder ? To continue with Depakote 4. GERD ? On PPI 5. Down syndrome with intellectual disability ? Supportive care. Patient's sister is his legal guardian was at the bedside Case discussed with her 4. DVT prophylaxis ? GA Zuly Time spent in the patient's overall evaluation,decision-making process, review of diagnostic data, adjustment of management, discussion with other providers, nursing nursing and ancillary staff involved in patient's care documentation, 35 minutes Charges/Coding Visit Charges Inpatient E&M: 05741 Subs Hosp L2
[2023-06-11 08:13] LABS: ALB/GLOB Ratio 0.6 RATIO (0.9-2.4); AST(SGOT) 32 U/L (15-37); Alanine Aminotransfer ALT/SGPT 39 U/L (16-61); Albumin, Serum 2.8 g/dL (3.2-5.0); Alkaline Phosphatase 102 U/L (45-117); Anion Gap 5 (5-15); BUN 5 mg/dL (7-18); BUN/Creat Ratio 6.8 RATIO (10-20); Calcium,Total 9.2 mg/dL (8.5-10.1); Chloride 94 mmol/L (98-107); Creatinine, Serum 0.73 mg/dL (0.70-1.30); EST Glomerular Filtration Rate 118 mL/min (>60); Est Glom Filt Rate - Afr Amer 142 mL/min (>60); Estimated Creatinine Clearance 100.75 ml/min; Globulin 4.7 g/dL (2.2-4.2); Glucose 98 mg/dL (74-106); Potassium 4.1 mmol/L (3.5-5.1); Protein, Total 7.5 g/dL (6.4-8.2); Sodium Level 130 mmol/L (136-145)
[2023-06-11 09:35] VITALS: BP 132/66; PULSE 82; RESP 18; TEMP 36.8; O2SAT 95
--- NOTE | 2023-06-11 09:51 | CASEMGMT ---
Discharge Planning Msg sent via [facility] to [facility] to check on status of referral. Julia Cristobal, Discharge Planning Asst.
--- NOTE | 2023-06-11 10:22 | CASEMGMT ---
Dicharge Planning Patient has been accepted by [facility]. RN CM updated. Julia Cristobal, Discharge Planning Asst.
--- NOTE | 2023-06-11 10:41 | CASEMGMT ---
Addendum entered by Mag Petersen 06/11/23 12:14: TC to Ronel at [facility], left a message stating plan is for pt to dc likely tomorrow, awaiting ST. Addendum entered by Mag Petersen 06/11/23 10:52: TC to pt legal guardian Elinor Farias, she is aware that [facility] has accepted pt for care and will see the day after dc. She requests that pt cg Mukesh Del Valle be notified. TC to Mukesh and he is aware. Original Note: [facility] accepted pt for SOC. Will plan to see pt the day after dc.
[2023-06-11] MEDS: Ceftriaxone 2 GM in 0.9% Normal Saline (50mL MB+) 50 ML IV (11:03)
[2023-06-11] MEDS: 0.9% Saline Lock 10 ML Syringe IV ×3 (11:13→23:26)
[2023-06-11] MEDS: OLANZapine 2.5 MG Tablet PO (11:17)
[2023-06-11] MEDS: Sodium Chloride 1 GM Tablet PO (11:18)
[2023-06-11] MEDS: guaiFENesin 1,200 MG Tablet 1200 MG PO (11:19)
[2023-06-11] MEDS: Valproic Acid 250 MG/5 ML UDC PO (11:19)
[2023-06-11] MEDS: Enoxaparin 40 MG/0.4 ML Syringe SC (11:20)
[2023-06-11] MEDS: Doxycycline 100 MG in Dextrose 5%-Water (250mL Bag) 250 ML 250 MG IV ×2 (13:03→23:26)
[2023-06-11 15:30] VITALS: BP 117/66; PULSE 86; RESP 18; TEMP 36.6; O2SAT 97
--- NOTE | 2023-06-11 16:30 | PN.GI_ITS ---
Subjective Subjective Patient is not able to give history. He had repeat modified speech and swallow study today. Noted severe oropharyngeal dysphagia thin liquids were recommended. Objective Data Objective Data Vital Signs: Vital Signs Temp Pulse Resp BP Pulse Ox O2 Del Method 98.2 F 82 18 132/66 H 95 Room Air 06/11/23 09:35 06/11/23 09:35 06/11/23 09:35 06/11/23 09:35 06/11/23 09:35 06/11/23 09:35 Oxygen Delivery Method Room Air Weight: 171 lb 11.841 oz Body Mass Index (BMI) 27.6 Intake & Output: Intake and Output for Last 24 Hours 06/09/23 06/10/23 06/11/23 23:59 23:59 23:59 Intake Total 1027.5 / 1027.5 2475 / 2475 340 / 340 Output Total 1950 / 1950 1600 / 1600 700 / 700 Balance -922.5 / -922.5 875 / 875 -360 / -360 Lab / Micro Data 06/11/23 05:10 06/11/23 05:10 Labs: Laboratory Results - last 24 hr 06/11/23 05:10: WBC 3.0 L, RBC 4.41 L, Hgb 13.4, Hct 40.3, MCV 91.4, MCH 30.4, MCHC 33.3, RDW Std Deviation 40.4, RDW Coeff of [place] 12.0, Plt Count 317, MPV 9.0, Immature Gran % (Auto) 0.300, Neut % (Auto) 45.1 L, Lymph % (Auto) 35.3, [place] % (Auto) 17.3 H, Eos % (Auto) 1.7, Baso % (Auto) 0.3, Absolute Neuts (auto) 1.4 L, Absolute Lymphs (auto) 1.06, Nucleated RBC % 0, Sodium 130 L, Potassium 4.1, Chloride 94 L, Carbon Dioxide 31.0, Anion Gap 5, BUN 5 L, Creatinine 0.73, Estim Creat Clear Calc 100.75, Est GFR (MDRD) Af Amer 142, Est GFR (MDRD) Non-Af 118, BUN/Creatinine Ratio 6.8 L, Glucose 98, Calcium 9.2, Total Bilirubin 0.20, AST 32, ALT 39, Alkaline Phosphatase 102, Total Protein 7.5, Albumin 2.8 L, Globulin 4.7 H, Albumin/Globulin Ratio 0.6 L Micro: Microbiology 06/09/23 13:30 Sputum, Expectorated/Coughed Gram Stain - Final 06/09/23 13:30 Sputum, Expectorated/Coughed Respiratory Culture - Preliminary Appears to be normal respiratory martin. Further studies to follow. 06/07/23 15:50 Mucosa - Nasopharyngeal Respiratory Panel (PCR) - Final 06/07/23 17:00 Urine Catheter - Catheter Legionella Antigen - Final 06/07/23 17:00 Urine Catheter - Catheter Streptococcus pneumoniae Antigen (M - Final 06/07/23 09:05 Nasal Secretion SARS-CoV-2 & FLU Antigen (Rapid) - Final Rhythm Strip Rhythm Strip: Sinus Rhythm Rate: 73 Ectopy: None Physical Exam Narrative GENERAL: Patient in no apparent distress HEENT: Atraumatic; normocephalic EYES; Anicteric, Normal Conjunctiva NECK; supple, normal thyroid, RESPIRATORY: Diminished to auscultation CARDIOVASCULAR: Regular S1 S2, GI: soft, normoactive bowel sounds, : No Renal angle tenderness; EXTREMITIES: No edema, no clubbing, MUSCULOSKELETAL: no muscle wasting NEURO: Awake; no lateralizing signs. SKIN: No Rash PSYCH; Flat affect Assessment & Plan Assessment/Plan (1) Acute alteration in mental status: (2) Nonverbal: (3) Dysphagia: QUALIFIERS: Dysphagia type: oropharyngeal phase Qualified Code(s): R13.12 - Dysphagia, oropharyngeal phase PLAN: Plan 58-year-old nonverbal gentleman with history of esophageal dysphagia status post PEG tube comes in with worsening shortness of breath and altered mental status discovered to have pneumonia. He failed a swallowing study. I am not sure about his level of swallowing continue to require the need of a PEG tube for alternative nutrition. -Dysphagia-status post dilation. I think he needs an repeat swallowing study. I felt like he is coughing possibly secondary to the pneumonia. He has multiple risk factor for aspiration pneumonia including the PEG tube and oropharyngeal dysphagia with likely esophageal dysphagia. Will continue to follow. Charges/Coding Visit Charges Inpatient E&M: 22458 Subs Hosp L3
[2023-06-11] MEDS: LORazepam 2 MG/ML Syringe 0.5 MG IV (16:31)
--- NOTE | 2023-06-11 18:22 | NURSING ---
1809; notified per chicken hanger pts morteza button was pulled out and laying in his depends. upon inspection balloon is broken. pt is calm and laying in bed. washed around graham button insertion with ns. covered with dry dressing.
[2023-06-11 22:37] VITALS: BP 123/74; PULSE 81; RESP 16; TEMP 36.4; O2SAT 95
[2023-06-12] VITALS (8 sets, daily range): BP systolic 108–146; BP diastolic 53–86; PULSE 74–88; RESP 14–20; TEMP 36.1–36.6; O2SAT 94–99; BMI 27.7
[2023-06-12] MEDS: 0.9% Normal Saline (1000mL) 1,000 ML 100 ML IV (00:36)
--- NOTE | 2023-06-12 07:31 | PCM.PN.HOSP ---
Reason for Visit Reason for Visit: Diagnoses Hypothyroidism, unspecified (06/08/23) Unspecified intellectual disabilities (06/08/23) Pneumonia, unspecified organism (06/08/23) Gastro-esophageal reflux disease without esophagitis (06/08/23) Dysphagia, oropharyngeal phase (06/08/23) Altered mental status, unspecified (06/08/23) Aphasia (06/08/23) Unspecified convulsions (06/08/23) Subjective Subjective Patient apparently pulled out his PEG tube. Consult has been placed to GI Objective Data Objective Data Vital Signs: Vital Signs Temp Pulse Resp BP Pulse Ox O2 Del Method 97.8 F 86 16 108/53 L 99 Room Air 06/12/23 04:37 06/12/23 04:37 06/12/23 04:37 06/12/23 04:37 06/12/23 04:37 06/12/23 04:37 Oxygen Delivery Method Room Air Weight: 78 kg Body Mass Index (BMI) 27.7 Intake & Output: Intake and Output for Last 24 Hours 06/10/23 06/11/23 06/12/23 23:59 23:59 23:59 Intake Total 2475 / 2475 850 / 850 260 / 260 Output Total 1600 / 1600 1900 / 1900 700 / 700 Balance 875 / 875 -1050 / -1050 -440 / -440 Lab / Micro Data 06/12/23 07:27 06/12/23 07:27 Labs: Laboratory Results - last 24 hr 06/11/23 05:10: Sodium 130 L, Potassium 4.1, Chloride 94 L, Carbon Dioxide 31.0, Anion Gap 5, BUN 5 L, Creatinine 0.73, Estim Creat Clear Calc 100.75, Est GFR (MDRD) Af Amer 142, Est GFR (MDRD) Non-Af 118, BUN/Creatinine Ratio 6.8 L, Glucose 98, Calcium 9.2, Total Bilirubin 0.20, AST 32, ALT 39, Alkaline Phosphatase 102, Total Protein 7.5, Albumin 2.8 L, Globulin 4.7 H, Albumin/Globulin Ratio 0.6 L Micro: Microbiology 06/09/23 13:30 Sputum, Expectorated/Coughed Gram Stain - Final 06/09/23 13:30 Sputum, Expectorated/Coughed Respiratory Culture - Preliminary Appears to be normal respiratory martin. Further studies to follow. 06/07/23 15:50 Mucosa - Nasopharyngeal Respiratory Panel (PCR) - Final 06/07/23 17:00 Urine Catheter - Catheter Legionella Antigen - Final 06/07/23 17:00 Urine Catheter - Catheter Streptococcus pneumoniae Antigen (M - Final 06/07/23 09:05 Nasal Secretion SARS-CoV-2 & FLU Antigen (Rapid) - Final Rhythm Strip Rhythm Strip: Sinus Rhythm Rate: 73 Ectopy: None Physical Exam Narrative GENERAL: Patient in no apparent distress HEENT: Atraumatic; normocephalic EYES; Anicteric, Normal Conjunctiva NECK; supple, normal thyroid, RESPIRATORY: Diminished to auscultation CARDIOVASCULAR: Regular S1 S2, GI: soft, normoactive bowel sounds, : No Renal angle tenderness; EXTREMITIES: No edema, no clubbing, MUSCULOSKELETAL: no muscle wasting NEURO: Awake; no lateralizing signs. SKIN: No Rash PSYCH; Flat affect Assessment & Plan Assessment/Plan (1) Community acquired bilateral lower lobe pneumonia: (2) Seizures: PLAN: Plan Patient is a 58-year-old gentleman with history of Down syndrome with learning disability resident at the [facility] who was brought to the ED with progressive generalized weakness was a suspicion of possible aspiration pneumonia. 1. Suspected aspiration pneumonia ? Patient was managed with Rocephin and doxycycline and kept n.p.o. 2. Dysphagia ? Status post EGD which found moderate Schatzki ring which was dilated as well as nonsevere reflux esophagitis. Plans for patient to undergo modified barium swallow and if unable to tolerate oral diet patient already has a PEG tube in situ ? 06/12/2023 patient did pull out his PEG tube consult has been placed to GI 3. Seizure disorder ? To continue with Depakote 4. GERD ? On PPI 5. Down syndrome with intellectual disability ? Supportive care. Patient's sister is his legal guardian was at the bedside Case discussed with her 4. DVT prophylaxis ? [place] Lovenox Time spent in the patient's overall evaluation,decision-making process, review of diagnostic data, adjustment of management, discussion with other providers, nursing nursing and ancillary staff involved in patient's care documentation, 35 minutes Charges/Coding Visit Charges Inpatient E&M: 16231 Subs Hosp L2
[2023-06-12 07:36] LABS: Absolute Lymphocyte Count 0.93 X10^3/uL (0.83-4.51); Basophil# 0.02 X10^3/uL; Basophil% 0.8 % (0-1); Differential Indicated SCAN CRITERIA MET; Eosinophil# 0.04 X10^3/uL; Eosinophils% 1.7 % (0-5); Hematocrit 34.4 % (40-54); Hemoglobin 11.6 g/dL (13.0-16.5); Lymphocyte # 0.93 X10^3/ul (0.83-4.51); Lymphocyte % 38.4 % (19-41); Mean Corp Hgb Conc 33.7 g/dL (32-36); Mean Corpuscular Hgb 30.9 pg (27.0-32.0); Mean Corpuscular Volume 91.5 fL (80-94); Mean Platelet Vol. 8.8 fl (6.2-12.0); Monocyte# 0.46 X10^3/uL; NRBC Flagged by Analyzer 0 % (0-5); Neutrophil # 0.97 X10^3/uL (2.7-7.7); Neutrophil % 40.1 % (47-70); POSITIVE DIFFERENTIAL YES; Platelet Count 272 K/mm3 (150-450); RBC Distribution Width CV 12.1 % (11.6-14.6); RBC Distribution Width SD 40.6 fl (35.1-43.9); Red Blood Count 3.76 M/mm3 (4.6-6.2); White Blood Count 2.4 K/mm3 (4.4-11.0)
[2023-06-12 08:05] LABS: ALB/GLOB Ratio 0.6 RATIO (0.9-2.4); AST(SGOT) 26 U/L (15-37); Alanine Aminotransfer ALT/SGPT 34 U/L (16-61); Albumin, Serum 2.5 g/dL (3.2-5.0); Alkaline Phosphatase 87 U/L (45-117); Anion Gap 3 (5-15); BUN 5 mg/dL (7-18); BUN/Creat Ratio 6.8 RATIO (10-20); Calcium,Total 8.7 mg/dL (8.5-10.1); Chloride 100 mmol/L (98-107); Creatinine, Serum 0.73 mg/dL (0.70-1.30); EST Glomerular Filtration Rate 118 mL/min (>60); Est Glom Filt Rate - Afr Amer 142 mL/min (>60); Estimated Creatinine Clearance 100.75 ml/min; Globulin 4.3 g/dL (2.2-4.2); Glucose 87 mg/dL (74-106); Potassium 3.9 mmol/L (3.5-5.1); Protein, Total 6.8 g/dL (6.4-8.2); Sodium Level 132 mmol/L (136-145)
[2023-06-12] MEDS: 0.9% Saline Lock 10 ML Syringe IV ×3 (09:43→21:37)
[2023-06-12] MEDS: LORazepam 2 MG/ML Syringe 0.5 MG IV (09:43)
[2023-06-12] MEDS: Ceftriaxone 2 GM in 0.9% Normal Saline (50mL MB+) 50 ML IV (09:44)
[2023-06-12] MEDS: Doxycycline 100 MG in Dextrose 5%-Water (250mL Bag) 250 ML 250 MG IV ×2 (11:15→21:37)
[2023-06-12] MEDS: Enoxaparin 40 MG/0.4 ML Syringe SC (11:17)
[2023-06-12] MEDS: LORazepam 2 MG/ML Syringe 1 MG IV (15:30)
--- NOTE | 2023-06-12 18:56 | NURSING ---
1800-off unit for procedure
[2023-06-12] MEDS: Silver Nitrate (BKC) 1 EACH (19:23)
--- NOTE | 2023-06-12 19:25 | OP.EGD_ITS ---
Patient Name: Barrera Farias Procedure Date: 06/12/2023 6:29 PM Date of : 1965 Age: 58 Procedure: Upper GI endoscopy Indications: Dysphagia Providers: Christiano Gambino DO Medicines: Monitored Anesthesia Care Patient Profile: This is a 58 year old male. Refer to note in patient chart for documentation of history and physical. Patient has symptoms of dysphagia with both liquids and solids. Complications: No immediate complications. Procedure: Pre-Anesthesia Assessment: - Prior to the procedure, a History and Physical was performed, and patient medications and allergies were reviewed. The risks and benefits of the procedure and the sedation options and risks were discussed with the patient. All questions were answered and informed consent was obtained. Patient identification and proposed procedure were verified by the physician. Mental Status Examination: normal. Prophylactic Antibiotics: The patient does not require prophylactic antibiotics. Prior Anticoagulants: The patient has taken no anticoagulant or antiplatelet agents. ASA Grade Assessment: III - A patient with severe systemic disease. After reviewing the risks and benefits, the patient was deemed in satisfactory condition to undergo the procedure. The anesthesia plan was to use monitored anesthesia care (MAC). Immediately prior to administration of medications, the patient was re-assessed for adequacy to receive sedatives. The heart rate, respiratory rate, oxygen saturations, blood pressure, adequacy of pulmonary ventilation, and response to care were monitored throughout the procedure. The physical status of the patient was re-assessed after the procedure. After obtaining informed consent, the endoscope was passed under direct vision. Throughout the procedure, the patient's blood pressure, pulse, and oxygen saturations were monitored continuously. The Endoscope was introduced through the mouth, and advanced to the second part of duodenum. The upper GI endoscopy was accomplished without difficulty. The patient tolerated the procedure well. Scope In: 6:51:29 PM Scope Out: 7:00:19 PM Total Procedure Duration Time 0 hours 8 minutes 50 seconds Findings: No endoscopic abnormality was evident in the esophagus to explain the patient's complaint of dysphagia. It was decided, however, to proceed with dilation of the upper third of the esophagus. A guidewire was placed and the scope was withdrawn. Dilation was performed with a Savary dilator with no resistance at 45 Fr. The dilation site was examined and showed mild improvement in luminal narrowing. Estimated blood loss was minimal. No gross lesions were noted in the stomach. The patient was placed in the supine position for PEG placement. The stomach was insufflated to appose gastric and abdominal haley. A site was located in the body of the stomach with excellent transillumination for placement. The abdominal wall was marked and prepped in a sterile manner. The area was anesthetized with 1 mL of 0.5% lidocaine. The trocar needle was introduced through the abdominal wall and into the stomach under direct endoscopic view. A snare was introduced through the endoscope and opened in the gastric lumen. The guide wire was passed through the trocar and into the open snare. The snare was closed around the guide wire. The endoscope and snare were removed, pulling the wire out through the mouth. A skin incision was made at the site of needle insertion. The endoscopically removable 20 Fr Bard gastrostomy tube was lubricated. The G-tube was tied to the guide wire and pulled through the mouth and into the stomach. The trocar needle was removed, and the gastrostomy tube was pulled out from the stomach through the skin. The external bumper was attached to the gastrostomy tube, and the tube was cut to remove the guide wire. The final position of the gastrostomy tube was confirmed by relook endoscopy, and skin marking noted to be 4 cm at the external bumper. The final tension and compression of the abdominal wall by the PEG tube and external bumper were checked and revealed that the bumper was loose and lightly touching the skin and that the PEG balloon was loose and lightly touching the stomach. The feeding tube was capped, and the tube site cleaned and dressed. The duodenal bulb was normal. Impression: - No endoscopic esophageal abnormality to explain patient's dysphagia. Esophagus dilated. Dilated. - No gross lesions in the stomach. - Normal duodenal bulb. - An endoscopically removable PEG placement was successfully completed. - No specimens collected. Recommendation: - Return patient to hospital [facility] for ongoing care. - Resume previous diet. - Continue present medications. Procedure Code(s): --- Professional --- 20011, Esophagogastroduodenoscopy, flexible, transoral; with directed placement of percutaneous gastrostomy tube 11929, Esophagogastroduodenoscopy, flexible, transoral; with insertion of guide wire followed by passage of dilator(s) through esophagus over guide wire CPT copyright 2021 [employer]. All rights reserved. The codes documented in this report are preliminary and upon collections assistant review may be revised to meet current compliance requirements. Christiano Gambino DO 06/12/2023 7:24:38 PM This report has been signed electronically. Number of Addenda: 0 Note Initiated On: 06/12/2023 6:29 PM
--- NOTE | 2023-06-12 19:25 | OP.CCLET_ITS ---
06/12/2023 Oscar Aguilar Md Re : Upper GI endoscopy procedure for Barrera Farias Dear Lauren This procedure was performed on Monday, June 12, 2023. My impressions and recommendations are as follows: Impressions : - No endoscopic esophageal abnormality to explain patient's dysphagia. Esophagus dilated. Dilated. - No gross lesions in the stomach. - Normal duodenal bulb. - An endoscopically removable PEG placement was successfully completed. - No specimens collected. Recommendations : - Return patient to hospital [facility] for ongoing care. - Resume previous diet. - Continue present medications. My findings are described in the full procedure note, which is enclosed. If I can be of further assistance, please feel free to contact me at . Sincerely, Christiano Gambino, 06/12/2023 7:24:38 PM This report has been signed electronically.
--- NOTE | 2023-06-12 20:47 | SUR.PHASEII ---
PACU report sent to [facility] at 2003, called report to RONNY Gallo at 2009. Awaiting [facility] staff to transport patient. Notified Nursing Gas Usage Meter Clerk, Flower, at 2039 that no staff has been available to transport.
[2023-06-12] MEDS: traZODone 100 MG Tablet 150 MG PO (21:41)
[2023-06-12] MEDS: LORazepam 0.5 MG Tablet PO (21:41)
[2023-06-12] MEDS: guaiFENesin 1,200 MG Tablet 1200 MG PO (21:42)
[2023-06-12] MEDS: Donepezil HCl 10 MG Tablet PO (21:42)
[2023-06-12] MEDS: Valproic Acid 250 MG/5 ML UDC PO (21:44)
[2023-06-12] MEDS: OLANZapine 2.5 MG Tablet PO (21:45)
[2023-06-13 05:33] VITALS: BMI 27.5
[2023-06-13 05:35] VITALS: BP 123/63; PULSE 95; RESP 18; TEMP 36.8; O2SAT 99
[2023-06-13] MEDS: Levothyroxine 50 MCG Tablet PO (05:37)
--- NOTE | 2023-06-13 07:52 | PCM.PN.HOSP ---
Reason for Visit Reason for Visit: Diagnoses Hypothyroidism, unspecified (06/08/23) Unspecified intellectual disabilities (06/08/23) Pneumonia, unspecified organism (06/08/23) Gastro-esophageal reflux disease without esophagitis (06/08/23) Dysphagia, oropharyngeal phase (06/08/23) Altered mental status, unspecified (06/08/23) Aphasia (06/08/23) Unspecified convulsions (06/08/23) Subjective Subjective Patient seen resting comfortably. Underwent PEG tube placement the day prior Objective Data Objective Data Vital Signs: Vital Signs Temp Pulse Resp BP Pulse Ox O2 Del Method 98.2 F 95 18 123/63 H 99 Room Air 06/13/23 05:35 06/13/23 05:35 06/13/23 05:35 06/13/23 05:35 06/13/23 05:35 06/13/23 06:03 Oxygen Delivery Method Room Air Weight: 77.7 kg Body Mass Index (BMI) 27.5 Intake & Output: Intake and Output for Last 24 Hours 06/11/23 06/12/23 06/13/23 23:59 23:59 23:59 Intake Total 850 / 850 2029 / 2029 200 / 200 Output Total 1900 / 1900 2100 / 2100 400 / 400 Balance -1050 / -1050 -70 / -70 -200 / -200 Lab / Micro Data 06/13/23 06:50 06/13/23 06:50 Labs: Laboratory Results - last 24 hr 06/12/23 07:27: Sodium 132 L, Potassium 3.9, Chloride 100, Carbon Dioxide 29.0, Anion Gap 3 L, BUN 5 L, Creatinine 0.73, Estim Creat Clear Calc 100.75, Est GFR (MDRD) Af Amer 142, Est GFR (MDRD) Non-Af 118, BUN/Creatinine Ratio 6.8 L, Glucose 87, Calcium 8.7, Total Bilirubin 0.40, AST 26, ALT 34, Alkaline Phosphatase 87, Total Protein 6.8, Albumin 2.5 L, Globulin 4.3 H, Albumin/Globulin Ratio 0.6 L Micro: Microbiology 06/09/23 13:30 Sputum, Expectorated/Coughed Gram Stain - Final 06/09/23 13:30 Sputum, Expectorated/Coughed Respiratory Culture - Final 06/07/23 15:50 Mucosa - Nasopharyngeal Respiratory Panel (PCR) - Final 06/07/23 17:00 Urine Catheter - Catheter Legionella Antigen - Final 06/07/23 17:00 Urine Catheter - Catheter Streptococcus pneumoniae Antigen (M - Final 06/07/23 09:05 Nasal Secretion SARS-CoV-2 & FLU Antigen (Rapid) - Final Rhythm Strip Rhythm Strip: Sinus Rhythm Rate: 73 Ectopy: None Physical Exam Narrative GENERAL: Patient in no apparent distress HEENT: Atraumatic; normocephalic EYES; Anicteric, Normal Conjunctiva NECK; supple, normal thyroid, RESPIRATORY: Diminished to auscultation CARDIOVASCULAR: Regular S1 S2, GI: soft, normoactive bowel sounds, : No Renal angle tenderness; EXTREMITIES: No edema, no clubbing, MUSCULOSKELETAL: no muscle wasting NEURO: Awake; no lateralizing signs. SKIN: No Rash PSYCH; Flat affect Assessment & Plan Assessment/Plan (1) Community acquired bilateral lower lobe pneumonia: (2) Seizures: PLAN: Plan Patient is a 58-year-old gentleman with history of Down syndrome with learning disability resident at the [facility] who was brought to the ED with progressive generalized weakness was a suspicion of possible aspiration pneumonia. 1. Suspected aspiration pneumonia ? Patient was managed with Rocephin and doxycycline and kept n.p.o. 2. Dysphagia ? Status post EGD which found moderate Schatzki ring which was dilated as well as nonsevere reflux esophagitis. Plans for patient to undergo modified barium swallow and if unable to tolerate oral diet patient already has a PEG tube in situ ? 06/12/2023 patient did pull out his PEG tube consult has been placed to GI ? 06/13/2023; patient underwent EGD with replacement of PEG tube No endoscopic esophageal abnormality to explain patient's dysphagia. Esophagus dilated. Dilated. - No gross lesions in the stomach. - Normal duodenal bulb. - An endoscopically removable PEG placement was successfully completed. - No specimens collected. Recommendations : - Return patient to hospital [facility] for ongoing care. - Resume previous diet. - Continue present medications. 3. Seizure disorder ? To continue with Depakote 4. GERD ? On PPI 5. Down syndrome with intellectual disability ? Supportive care. Patient's sister is his legal guardian was at the bedside Case discussed with her 4. DVT prophylaxis ? [facility] [place] Time spent in the patient's overall evaluation,decision-making process, review of diagnostic data, adjustment of management, discussion with other providers, nursing nursing and ancillary staff involved in patient's care documentation, 35 minutes Charges/Coding Visit Charges Inpatient E&M: 60576 Subs Hosp L2
[2023-06-13 08:44] LABS: Absolute Lymphocyte Count 0.67 X10^3/uL (0.83-4.51); Absolute Neutrophil Count 5.7 X10^3/uL (2.0-7.7); Basophil# 0.02 X10^3/uL; Basophil% 0.3 % (0-1); Hematocrit 39.1 % (40-54); Hemoglobin 13.1 g/dL (13.0-16.5); Lymphocyte # 0.67 X10^3/ul (0.83-4.51); Lymphocyte % 9.7 % (19-41); Mean Corp Hgb Conc 33.5 g/dL (32-36); Mean Corpuscular Hgb 30.2 pg (27.0-32.0); Mean Corpuscular Volume 90.1 fL (80-94); Mean Platelet Vol. 9.1 fl (6.2-12.0); Monocyte# 0.52 X10^3/uL; Monocyte% 7.5 % (0-10); NRBC Flagged by Analyzer 0 % (0-5); Neutrophil # 5.66 X10^3/uL (2.7-7.7); Neutrophil % 82.1 % (47-70); Platelet Count 337 K/mm3 (150-450); RBC Distribution Width CV 12.1 % (11.6-14.6); RBC Distribution Width SD 39.8 fl (35.1-43.9); Red Blood Count 4.34 M/mm3 (4.6-6.2); White Blood Count 6.9 K/mm3 (4.4-11.0)
[2023-06-13 09:07] LABS: Anion Gap 7 (5-15); BUN 6 mg/dL (7-18); BUN/Creat Ratio 9.5 RATIO (10-20); Calcium,Total 8.9 mg/dL (8.5-10.1); Chloride 95 mmol/L (98-107); Creatinine, Serum 0.63 mg/dL (0.70-1.30); EST Glomerular Filtration Rate 139 mL/min (>60); Est Glom Filt Rate - Afr Amer 168 mL/min (>60); Estimated Creatinine Clearance 116.74 ml/min; Glucose 84 mg/dL (74-106); Phosphorus 3.3 mg/dL (2.5-4.9); Potassium 3.9 mmol/L (3.5-5.1); Sodium Level 127 mmol/L (136-145)
[2023-06-13] MEDS: Ceftriaxone 2 GM in 0.9% Normal Saline (50mL MB+) 50 ML IV (09:45)
[2023-06-13] MEDS: 0.9% Saline Lock 10 ML Syringe IV ×2 (09:46→22:41)
[2023-06-13] MEDS: LORazepam 0.5 MG Tablet PO ×2 (09:58→22:45)
[2023-06-13] MEDS: guaiFENesin 1,200 MG Tablet 1200 MG PO ×2 (09:58→22:43)
[2023-06-13] MEDS: Pantoprazole Sodium 20 MG Tablet PO (09:58)
[2023-06-13] MEDS: OLANZapine 2.5 MG Tablet PO ×2 (09:59→22:44)
[2023-06-13] MEDS: Enoxaparin 40 MG/0.4 ML Syringe SC (09:59)
[2023-06-13] MEDS: Valproic Acid 250 MG/5 ML UDC PO ×2 (09:59→22:44)
[2023-06-13 10:00] VITALS: BP 114/67; PULSE 95; RESP 15; TEMP 36.4; O2SAT 98
[2023-06-13] MEDS: Sodium Chloride 1 GM Tablet PO (10:00)
[2023-06-13] MEDS: Doxycycline 100 MG in Dextrose 5%-Water (250mL Bag) 250 ML 250 MG IV ×2 (10:16→22:42)
[2023-06-13] MEDS: 0.9% Normal Saline (250mL Bag) 250 ML 15 ML IV (11:49)
[2023-06-13 14:00] VITALS: BP 111/71; PULSE 81; RESP 15; TEMP 36.3; O2SAT 98
--- NOTE | 2023-06-13 17:24 | EX.PCM.PN.GI ---
Subjective Subjective Patient underwent PEG tube replacement yesterday. He is not having any issues today. Objective Data Objective Data Vital Signs: Vital Signs Temp Pulse Resp BP Pulse Ox O2 Del Method 97.4 F L 81 15 111/71 98 Room Air 06/13/23 14:00 06/13/23 14:00 06/13/23 14:00 06/13/23 14:00 06/13/23 14:00 06/13/23 14:00 Oxygen Delivery Method Room Air Weight: 171 lb 4.787 oz Body Mass Index (BMI) 27.5 Intake & Output: Intake and Output for Last 24 Hours 06/11/23 06/12/23 06/13/23 23:59 23:59 23:59 Intake Total 850 / 850 2030 / 2029 550 / 550 Output Total 1900 / 1900 2100 / 2100 1000 / 1000 Balance -1050 / -1050 -70 / -70 -450 / -450 Lab / Micro Data 06/13/23 06:50 06/13/23 06:50 Labs: Laboratory Results - last 24 hr 06/13/23 06:50: WBC 6.9, RBC 4.34 L, Hgb 13.1, Hct 39.1 L, MCV 90.1, MCH 30.2, MCHC 33.5, RDW Std Deviation 39.8, RDW Coeff of Tracy 12.1, Plt Count 337, MPV 9.1, Immature Gran % (Auto) 0.400, Neut % (Auto) 82.1 H, Lymph % (Auto) 9.7 L, [place] % (Auto) 7.5, Eos % (Auto) 0.0, Baso % (Auto) 0.3, Absolute Neuts (auto) 5.7, Absolute Lymphs (auto) 0.67 L, Nucleated RBC % 0, Sodium 127 L, Potassium 3.9, Chloride 95 L, Carbon Dioxide 25.0, Anion Gap 7, BUN 6 L, Creatinine 0.63 L, Estim Creat Clear Calc 116.74, Est GFR (MDRD) Af Amer 168, Est GFR (MDRD) Non-Af 139, BUN/Creatinine Ratio 9.5 L, Glucose 84, Calcium 8.9, Phosphorus 3.3, Magnesium 2.0 Micro: Microbiology 06/09/23 13:30 Sputum, Expectorated/Coughed Gram Stain - Final 06/09/23 13:30 Sputum, Expectorated/Coughed Respiratory Culture - Final 06/07/23 15:50 Mucosa - Nasopharyngeal Respiratory Panel (PCR) - Final 06/07/23 17:00 Urine Catheter - Catheter Legionella Antigen - Final 06/07/23 17:00 Urine Catheter - Catheter Streptococcus pneumoniae Antigen (M - Final 06/07/23 09:05 Nasal Secretion SARS-CoV-2 & FLU Antigen (Rapid) - Final Rhythm Strip Rhythm Strip: Sinus Rhythm Rate: 73 Ectopy: None Physical Exam Narrative GENERAL: Patient in no apparent distress HEENT: Atraumatic; normocephalic EYES; Anicteric, Normal Conjunctiva NECK; supple, normal thyroid, RESPIRATORY: Diminished to auscultation CARDIOVASCULAR: Regular S1 S2, GI: soft, normoactive bowel sounds, : No Renal angle tenderness; EXTREMITIES: No edema, no clubbing, MUSCULOSKELETAL: no muscle wasting NEURO: Awake; no lateralizing signs. SKIN: No Rash PSYCH; Flat affect Assessment & Plan Assessment/Plan (1) Acute alteration in mental status: (2) Nonverbal: (3) Dysphagia: QUALIFIERS: Dysphagia type: oropharyngeal phase Qualified Code(s): R13.12 - Dysphagia, oropharyngeal phase PLAN: Plan 58-year-old nonverbal gentleman with history of esophageal dysphagia status post PEG tube comes in with worsening shortness of breath and altered mental status discovered to have pneumonia. He failed a swallowing study. I am not sure about his level of swallowing continue to require the need of a PEG tube for alternative nutrition. -Dysphagia-status post dilation. I think he needs an repeat swallowing study. I felt like he is coughing possibly secondary to the pneumonia. He has multiple risk factor for aspiration pneumonia including the PEG tube and oropharyngeal dysphagia with likely esophageal dysphagia. Will continue to follow. 06/13-continue PEG tube feedings and medicines via PEG tube. They can be changed to a Aroldo tube as an outpatient when the stoma matures. Charges/Coding Visit Charges Inpatient E&M: 79384 [facility] Hosp L3
[2023-06-13 22:39] VITALS: BP 114/82; PULSE 95; RESP 18; TEMP 36.9; O2SAT 95
[2023-06-13] MEDS: traZODone 100 MG Tablet 150 MG PO (22:43)
[2023-06-13] MEDS: Donepezil HCl 10 MG Tablet PO (22:43)
[2023-06-14 04:00] VITALS: BP 124/71; PULSE 83; RESP 18; TEMP 36.4; O2SAT 96
[2023-06-14 04:21] VITALS: BMI 27.5
[2023-06-14] MEDS: Levothyroxine 50 MCG Tablet PO (06:10)
[2023-06-14 08:05] LABS: Absolute Lymphocyte Count 0.76 X10^3/uL (0.83-4.51); Basophil# 0.03 X10^3/uL; Basophil% 0.7 % (0-1); Eosinophil# 0.02 X10^3/uL; Eosinophils% 0.4 % (0-5); Hematocrit 37.3 % (40-54); Hemoglobin 12.8 g/dL (13.0-16.5); Lymphocyte # 0.76 X10^3/ul (0.83-4.51); Lymphocyte % 16.9 % (19-41); Mean Corp Hgb Conc 34.3 g/dL (32-36); Mean Corpuscular Hgb 30.8 pg (27.0-32.0); Mean Corpuscular Volume 89.7 fL (80-94); Monocyte# 0.64 X10^3/uL; Monocyte% 14.3 % (0-10); NRBC Flagged by Analyzer 0 % (0-5); Neutrophil # 3.03 X10^3/uL (2.7-7.7); Neutrophil % 67.5 % (47-70); Platelet Count 307 K/mm3 (150-450); Red Blood Count 4.16 M/mm3 (4.6-6.2); White Blood Count 4.5 K/mm3 (4.4-11.0)
[2023-06-14 08:48] LABS: Anion Gap 8 (5-15); BUN 6 mg/dL (7-18); BUN/Creat Ratio 9.9 RATIO (10-20); Calcium,Total 8.6 mg/dL (8.5-10.1); Chloride 95 mmol/L (98-107); Creatinine, Serum 0.61 mg/dL (0.70-1.30); EST Glomerular Filtration Rate 145 mL/min (>60); Est Glom Filt Rate - Afr Amer 176 mL/min (>60); Estimated Creatinine Clearance 120.57 ml/min; Glucose 86 mg/dL (74-106); Potassium 3.7 mmol/L (3.5-5.1); Sodium Level 127 mmol/L (136-145)
--- NOTE | 2023-06-14 09:27 | WOUNDNOTE ---
wound photo: left arm
--- NOTE | 2023-06-14 09:55 | PCM.PN.HOSP ---
Reason for Visit Reason for Visit: Diagnoses Hypothyroidism, unspecified (06/08/23) Unspecified intellectual disabilities (06/08/23) Pneumonia, unspecified organism (06/08/23) Gastro-esophageal reflux disease without esophagitis (06/08/23) Dysphagia, oropharyngeal phase (06/08/23) Altered mental status, unspecified (06/08/23) Aphasia (06/08/23) Unspecified convulsions (06/08/23) Subjective Subjective Patient seen had a relatively uneventful night. Sodium level is down to 127. Patient sodium tablets dose increase. Plan is to restart patient tube feed and if tolerated patient will be discharged back to the hospital for behavioral medicine Objective Data Objective Data Vital Signs: Vital Signs Temp Pulse Resp BP Pulse Ox O2 Del Method 97.5 F L 83 18 124/71 H 96 Room Air 06/14/23 04:00 06/14/23 04:00 06/14/23 04:00 06/14/23 04:00 06/14/23 04:00 06/14/23 04:00 Oxygen Delivery Method Room Air Weight: 77.6 kg Body Mass Index (BMI) 27.5 Intake & Output: Intake and Output for Last 24 Hours 06/12/23 06/13/23 06/14/23 23:59 23:59 23:59 Intake Total 2029 / 2029 750 / 1010 460 / 460 Output Total 2100 / 2100 2400 / 2400 500 / 500 Balance -70 / -70 -1650 / -1390 -40 / -40 Lab / Micro Data 06/14/23 07:05 06/14/23 07:05 Labs: Laboratory Results - last 24 hr 06/14/23 07:05: WBC 4.5, RBC 4.16 L, Hgb 12.8 L, Hct 37.3 L, MCV 89.7, MCH 30.8, MCHC 34.3, RDW Std Deviation 39.0, RDW Coeff of Tracy 12.0, Plt Count 307, MPV 9.0, Immature Gran % (Auto) 0.200, Neut % (Auto) 67.5, Lymph % (Auto) 16.9 L, [place] % (Auto) 14.3 H, Eos % (Auto) 0.4, Baso % (Auto) 0.7, Absolute Neuts (auto) 3.0, Absolute Lymphs (auto) 0.76 L, Nucleated RBC % 0, Sodium 127 L, Potassium 3.7, Chloride 95 L, Carbon Dioxide 24.0, Anion Gap 8, BUN 6 L, Creatinine 0.61 L, Estim Creat Clear Calc 120.57, Est GFR (MDRD) Af Amer 176, Est GFR (MDRD) Non-Af 145, BUN/Creatinine Ratio 9.9 L, Glucose 86, Calcium 8.6 Micro: Microbiology 06/09/23 13:30 Sputum, Expectorated/Coughed Gram Stain - Final 06/09/23 13:30 Sputum, Expectorated/Coughed Respiratory Culture - Final 06/07/23 15:50 Mucosa - Nasopharyngeal Respiratory Panel (PCR) - Final 06/07/23 17:00 Urine Catheter - Catheter Legionella Antigen - Final 06/07/23 17:00 Urine Catheter - Catheter Streptococcus pneumoniae Antigen (M - Final 06/07/23 09:05 Nasal Secretion SARS-CoV-2 & FLU Antigen (Rapid) - Final Rhythm Strip Rhythm Strip: Sinus Rhythm Rate: 73 Ectopy: None Physical Exam Narrative GENERAL: Patient in no apparent distress HEENT: Atraumatic; normocephalic EYES; Anicteric, Normal Conjunctiva NECK; supple, normal thyroid, RESPIRATORY: Diminished to auscultation CARDIOVASCULAR: Regular S1 S2, GI: soft, normoactive bowel sounds, : No Renal angle tenderness; EXTREMITIES: No edema, no clubbing, MUSCULOSKELETAL: no muscle wasting NEURO: Awake; no lateralizing signs. SKIN: No Rash PSYCH; Flat affect Assessment & Plan Assessment/Plan (1) Community acquired bilateral lower lobe pneumonia: (2) Seizures: PLAN: Plan Patient is a 58-year-old gentleman with history of Down syndrome with learning disability resident at the hospital [facility] who was brought to the ED with progressive generalized weakness was a suspicion of possible aspiration pneumonia. 1. Suspected aspiration pneumonia ? Patient was managed with Rocephin and doxycycline and kept n.p.o. 2. Dysphagia ? Status post EGD which found moderate Schatzki ring which was dilated as well as nonsevere reflux esophagitis. Plans for patient to undergo modified barium swallow and if unable to tolerate oral diet patient already has a PEG tube in situ ? 06/12/2023 patient did pull out his PEG tube consult has been placed to GI ? 06/13/2023; patient underwent EGD with replacement of PEG tube No endoscopic esophageal abnormality to explain patient's dysphagia. Esophagus dilated. Dilated. - No gross lesions in the stomach. - Normal duodenal bulb. - An endoscopically removable PEG placement was successfully completed. - No specimens collected. Recommendations : - Return patient to hospital [facility] for ongoing care. - Resume previous diet. - Continue present medications. ? 06/14/2023 plan is to reinitiate tube feeding 3. Seizure disorder ? To continue with Depakote 4. GERD ? On PPI 5. Down syndrome with intellectual disability ? Supportive care. Patient's sister is his legal guardian was at the bedside Case discussed with her 6. Hyponatremia ? Patient is on sodium tablet dose adjusted 7. DVT prophylaxis ? [place] Lovenox Time spent in the patient's overall evaluation,decision-making process, review of diagnostic data, adjustment of management, discussion with other providers, nursing nursing and ancillary staff involved in patient's care documentation, 35 minutes Charges/Coding Visit Charges Inpatient E&M: 65591 Subs Hosp L2
[2023-06-14 10:00] VITALS: BP 130/50; PULSE 82; RESP 18; TEMP 36.3; O2SAT 99
[2023-06-14] MEDS: Enoxaparin 40 MG/0.4 ML Syringe SC (10:10)
[2023-06-14] MEDS: Ceftriaxone 2 GM in 0.9% Normal Saline (50mL MB+) 50 ML IV (10:11)
[2023-06-14] MEDS: LORazepam 0.5 MG Tablet PO ×2 (10:11→22:22)
[2023-06-14] MEDS: 0.9% Saline Lock 10 ML Syringe IV ×2 (10:11→17:37)
[2023-06-14] MEDS: OLANZapine 2.5 MG Tablet PO ×2 (10:11→22:24)
[2023-06-14] MEDS: Valproic Acid 250 MG/5 ML UDC PO ×2 (10:11→22:23)
[2023-06-14] MEDS: guaiFENesin 1,200 MG Tablet 1200 MG PO ×2 (10:11→22:24)
[2023-06-14] MEDS: Doxycycline 100 MG in Dextrose 5%-Water (250mL Bag) 250 ML 250 MG IV ×2 (11:48→22:24)
--- NOTE | 2023-06-14 12:11 | CASEMGMT ---
Discharge Planning Updated HH order sent via [facility] to N. Julia Cristobal, Discharge Planning Asst.
[2023-06-14] MEDS: Jevity 1.5. 1,000 ML Bottle 300 ML GT ×3 (12:50→22:24)
[2023-06-14 14:35] VITALS: BP 92/50; PULSE 85; RESP 16; TEMP 36.1; O2SAT 97
--- NOTE | 2023-06-14 14:41 | CASEMGMT ---
Addendum entered by Randall Burns 06/14/23 15:47: [facility]: PH: [phone] (Rey) PH: [phone] Addendum entered by Randall Burns 06/14/23 15:42: RONNY SIU spoke w/Rey @ [facility]. He received the script for Jevity and documentation, but is also requesting ST notes. ST notes faxed at this time. He was made aware pt may be medically ready to discharge later this evening or tomorrow. Rey states they may not be able to get Jevity/supplies delivered until tomorrow. He was provided w/RN SALBADOR, Jose Hathaway, to contact tomorrow for f/u, as this RN CM will not be working. Original Note: RONNY SIU NOTE: Script for Jevity received from director of public relationsBozena, who requested this be faxed to [facility], once signed by Dr George. Script signed by Dr George and faxed to [facility] at this time, along w/facesheet, PN, and director of public relations note. Yohannes GOODMAN RN, CM
--- NOTE | 2023-06-14 15:49 | CASEMGMT ---
Discharge Planning CHN called asking for discharge instructions. Updated that patient will leave tomorrow and we'll make sure they have tube feed information as well. Julia Cristobal, Discharge Planning Asst.
[2023-06-14] MEDS: Sodium Chloride 1 GM Tablet PO ×2 (16:07→22:24)
[2023-06-14 16:37] LABS: Anion Gap 5 (5-15); BUN 6 mg/dL (7-18); BUN/Creat Ratio 8.4 RATIO (10-20); Calcium,Total 8.6 mg/dL (8.5-10.1); Chloride 95 mmol/L (98-107); Creatinine, Serum 0.71 mg/dL (0.70-1.30); EST Glomerular Filtration Rate 121 mL/min (>60); Est Glom Filt Rate - Afr Amer 147 mL/min (>60); Estimated Creatinine Clearance 103.59 ml/min; Glucose 88 mg/dL (74-106); Potassium 3.6 mmol/L (3.5-5.1); Sodium Level 127 mmol/L (136-145)
--- NOTE | 2023-06-14 17:18 | PN.GI_ITS ---
Subjective Subjective No overnight events. Patient is being treated for hyponatremia. Objective Data Objective Data Vital Signs: Vital Signs Temp Pulse Resp BP Pulse Ox O2 Del Method 97 F L 85 16 92/50 L 97 Room Air 06/14/23 14:35 06/14/23 14:35 06/14/23 14:35 06/14/23 14:35 06/14/23 14:35 06/14/23 14:35 Oxygen Delivery Method Room Air Weight: 171 lb 1.259 oz Body Mass Index (BMI) 27.5 Intake & Output: Intake and Output for Last 24 Hours 06/12/23 06/13/23 06/14/23 23:59 23:59 23:59 Intake Total 2029 / 2029 750 / 1010 1220 / 1220 Output Total 2099 / 2099 2400 / 2400 1050 / 1050 Balance -70 / -70 -1650 / -1390 170 / 170 Lab / Micro Data 06/14/23 07:05 06/14/23 16:00 Labs: Laboratory Results - last 24 hr 06/14/23 07:05: WBC 4.5, RBC 4.16 L, Hgb 12.8 L, Hct 37.3 L, MCV 89.7, MCH 30.8, MCHC 34.3, RDW Std Deviation 39.0, RDW Coeff of Tracy 12.0, Plt Count 307, MPV 9.0, Immature Gran % (Auto) 0.200, Neut % (Auto) 67.5, Lymph % (Auto) 16.9 L, Hernando % (Auto) 14.3 H, Eos % (Auto) 0.4, Baso % (Auto) 0.7, Absolute Neuts (auto) 3.0, Absolute Lymphs (auto) 0.76 L, Nucleated RBC % 0, Sodium 127 L, Potassium 3.7, Chloride 95 L, Carbon Dioxide 24.0, Anion Gap 8, BUN 6 L, Creatinine 0.61 L , Estim Creat Clear Calc 120.57, Est GFR (MDRD) Af Amer 176, Est GFR (MDRD) Non- Af 145, BUN/Creatinine Ratio 9.9 L, Glucose 86, Calcium 8.6 06/14/23 16:00: Sodium 127 L, Potassium 3.6, Chloride 95 L, Carbon Dioxide 27.0, Anion Gap 5, BUN 6 L, Creatinine 0.71, Estim Creat Clear Calc 103.59, Est GFR (MDRD) Af Amer 147, Est GFR (MDRD) Non-Af 121, BUN/Creatinine Ratio 8.4 L, Glucose 88, Calcium 8.6 Micro: Microbiology 06/09/23 13:30 Sputum, Expectorated/Coughed Gram Stain - Final 06/09/23 13:30 Sputum, Expectorated/Coughed Respiratory Culture - Final 06/07/23 15:50 Mucosa - Nasopharyngeal Respiratory Panel (PCR) - Final 06/07/23 17:00 Urine Catheter - Catheter Legionella Antigen - Final 06/07/23 17:00 Urine Catheter - Catheter Streptococcus pneumoniae Antigen (M - Final 06/07/23 09:05 Nasal Secretion SARS-CoV-2 & FLU Antigen (Rapid) - Final Rhythm Strip Rhythm Strip: Sinus Rhythm Rate: 73 Ectopy: None Physical Exam Narrative GENERAL: Patient in no apparent distress HEENT: Atraumatic; normocephalic EYES; Anicteric, Normal Conjunctiva NECK; supple, normal thyroid, RESPIRATORY: Diminished to auscultation CARDIOVASCULAR: Regular S1 S2, GI: soft, normoactive bowel sounds, : No Renal angle tenderness; EXTREMITIES: No edema, no clubbing, MUSCULOSKELETAL: no muscle wasting NEURO: Awake; no lateralizing signs. SKIN: No Rash PSYCH; Flat affect Assessment & Plan Assessment/Plan (1) Acute alteration in mental status: (2) Nonverbal: (3) Dysphagia: QUALIFIERS: Dysphagia type: oropharyngeal phase Qualified Code(s): R13.12 - Dysphagia, oropharyngeal phase PLAN: Plan 58-year-old nonverbal gentleman with history of esophageal dysphagia status post PEG tube comes in with worsening shortness of breath and altered mental status discovered to have pneumonia. He failed a swallowing study. I am not sure about his level of swallowing continue to require the need of a PEG tube for alternative nutrition. -Dysphagia-status post dilation. I think he needs an repeat swallowing study. I felt like he is coughing possibly secondary to the pneumonia. He has multiple risk factor for aspiration pneumonia including the PEG tube and oropharyngeal dysphagia with likely esophageal dysphagia. Will continue to follow. 06/13-continue PEG tube feedings and medicines via PEG tube. They can be changed to a Aroldo tube as an outpatient when the stoma matures. 06/14-hemoglobin seems to be stable. Patient can have medicine and tube feeds via his intact tube. [facility].
--- NOTE | 2023-06-14 17:19 | NURSING ---
This RN spoke to Kasey, nurse at the [facility]. Kasey said she is concerned that the pt's current living situation is not handicap accessible for the pt's current ambulation abilities. This RN passed this information along to case management.
[2023-06-14] MEDS: Ondansetron 4 MG/2 ML Vial IV (17:37)
[2023-06-14 17:45] VITALS: BP 117/63; PULSE 81; RESP 16; TEMP 36.4; O2SAT 99
[2023-06-14 22:10] VITALS: BP 114/70; PULSE 97; RESP 18; TEMP 36.7; O2SAT 97
[2023-06-14] MEDS: Donepezil HCl 10 MG Tablet PO (22:23)
[2023-06-14] MEDS: traZODone 100 MG Tablet 150 MG PO (22:23)
[2023-06-15 05:32] LABS: Absolute Lymphocyte Count 0.92 X10^3/uL (0.83-4.51); Absolute Neutrophil Count 2.6 X10^3/uL (2.0-7.7); Basophil# 0.02 X10^3/uL; Basophil% 0.5 % (0-1); Eosinophil# 0.03 X10^3/uL; Eosinophils% 0.7 % (0-5); Hematocrit 35.2 % (40-54); Lymphocyte # 0.92 X10^3/ul (0.83-4.51); Lymphocyte % 21.9 % (19-41); Mean Corp Hgb Conc 34.1 g/dL (32-36); Mean Corpuscular Hgb 30.5 pg (27.0-32.0); Mean Corpuscular Volume 89.3 fL (80-94); Mean Platelet Vol. 8.6 fl (6.2-12.0); Monocyte# 0.63 X10^3/uL; NRBC Flagged by Analyzer 0 % (0-5); Neutrophil # 2.59 X10^3/uL (2.7-7.7); Neutrophil % 61.7 % (47-70); Platelet Count 286 K/mm3 (150-450); RBC Distribution Width CV 12.2 % (11.6-14.6); RBC Distribution Width SD 39.5 fl (35.1-43.9); Red Blood Count 3.94 M/mm3 (4.6-6.2); White Blood Count 4.2 K/mm3 (4.4-11.0)
[2023-06-15] MEDS: Sodium Chloride 1 GM Tablet PO (05:56)
[2023-06-15] MEDS: Levothyroxine 50 MCG Tablet PO (05:56)
[2023-06-15 06:00] VITALS: BP 103/66; PULSE 85; RESP 18; TEMP 36.6; O2SAT 98; BMI 27.3
[2023-06-15 06:06] LABS: Anion Gap 7 (5-15); BUN 9 mg/dL (7-18); BUN/Creat Ratio 13.4 RATIO (10-20); Calcium,Total 8.6 mg/dL (8.5-10.1); Chloride 95 mmol/L (98-107); Creatinine, Serum 0.67 mg/dL (0.70-1.30); EST Glomerular Filtration Rate 130 mL/min (>60); Est Glom Filt Rate - Afr Amer 157 mL/min (>60); Estimated Creatinine Clearance 109.77 ml/min; Glucose 98 mg/dL (74-106); Potassium 3.7 mmol/L (3.5-5.1); Sodium Level 129 mmol/L (136-145)
[2023-06-15] MEDS: Jevity 1.5. 1,000 ML Bottle 300 ML GT (06:11)
--- NOTE | 2023-06-15 08:04 | PCM.DC.SUM ---
Providers Date of Admission: 06/08/23 Primary Care Physician: Oscar Aguilar MD Consultations 06/08/23 14:35 Consult: Gastroenterology Routine Consulting Provider: [facility] Reason for Consult: narrowing at cricopharyngeus, speech rec'd GI c/s EMERGENT Consult: No MD Notified: Yes Date Notified: 06/08/23 Time Notified: 15:30 Method of Notification: via text Reason For Visit: CAP /WORSENED MENTAL STATUS AND FUNCTIONAL DECLINE Diagnosis Discharge Diagnosis (1) Acute alteration in mental status: Status: Acute Code(s): R41.82 - Altered mental status, unspecified (2) Nonverbal: Status: Acute Code(s): R47.01 - Aphasia (3) Dysphagia: Status: Chronic Code(s): R13.10 - Dysphagia, unspecified Qualifiers: Dysphagia type: oropharyngeal phase Qualified Code(s): R13.12 - Dysphagia, oropharyngeal phase Plan Patient is a 58-year-old gentleman with history of Down syndrome with learning disability resident at the [facility] who was brought to the ED with progressive generalized weakness was a suspicion of possible aspiration pneumonia. 1. Suspected aspiration pneumonia ? Patient was managed with Rocephin and doxycycline and kept n.p.o. 2. Dysphagia ? Status post EGD which found moderate Schatzki ring which was dilated as well as nonsevere reflux esophagitis. Plans for patient to undergo modified barium swallow and if unable to tolerate oral diet patient already has a PEG tube in situ ? 06/12/2023 patient did pull out his PEG tube consult has been placed to GI ? 06/13/2023; patient underwent EGD with replacement of PEG tube No endoscopic esophageal abnormality to explain patient's dysphagia. Esophagus dilated. Dilated. - No gross lesions in the stomach. - Normal duodenal bulb. - An endoscopically removable PEG placement was successfully completed. - No specimens collected. Recommendations : - [facility]. - Resume previous diet. - Continue present medications. ? 06/14/2023 plan is to reinitiate tube feeding 3. Seizure disorder ? To continue with Depakote 4. GERD ? On PPI 5. Down syndrome with intellectual disability ? Supportive care. Patient's sister is his legal guardian was at the bedside Case discussed with her 6. Hyponatremia ? Patient is on sodium tablet dose adjusted 7. DVT prophylaxis ? SC Lovenox Time spent in the patient's overall evaluation,decision-making process, review of diagnostic data, adjustment of management, discussion with other providers, nursing nursing and ancillary staff involved in patient's care documentation, 35 minutes Medications at Discharge Home Medications valproic acid (as sodium salt) 250 mg/5 mL oral solution 5 ml G-tube BID 04/01/19 levothyroxine 50 mcg tablet 50 mcg PO DAILY 07/04/19 omeprazole 20 mg capsule,delayed release 20 mg PO DAILY 04/14/22 sennosides 8.6 mg tablet (senna) 8.6 mg PO DAILY 04/14/22 benzonatate 100 mg capsule 100 mg PO BID PRN cough 08/21/22 loratadine 10 mg tablet 10 mg PO DAILY 08/21/22 peg 3350-electrolytes 236 gram-22.74 gram-6.74 gram-5.86 gram solution 240 ml PO Q10M 08/21/22 donepezil 10 mg tablet 10 mg PO QHS 05/25/23 haloperidol 5 mg tablet 5 mg PO Q6H PRN agitation 05/25/23 olanzapine 2.5 mg tablet 2.5 mg PO BID 05/25/23 sodium chloride 1,000 mg soluble tablet 1,000 mg PO DAILY 05/25/23 trazodone 100 mg tablet 150 mg PO QHS 05/25/23 lorazepam 0.5 mg tablet 0.5 mg PO BID 06/07/23 trazodone 150 mg tablet 150 mg PO QHS 06/07/23 valproic acid (as sodium salt) 250 mg/5 mL oral solution 250 mg PO BID 06/07/23 Physical Exam Narrative GENERAL: Patient in no apparent distress HEENT: Atraumatic; normocephalic EYES; Anicteric, Normal Conjunctiva NECK; supple, normal thyroid, RESPIRATORY: Diminished to auscultation CARDIOVASCULAR: Regular S1 S2, GI: soft, normoactive bowel sounds, : No Renal angle tenderness; EXTREMITIES: No edema, no clubbing, MUSCULOSKELETAL: no muscle wasting NEURO: Awake; no lateralizing signs. SKIN: No Rash PSYCH; Flat affect Weight / BMI Weight Weight: 77.2 kg Body Mass Index (BMI) 27.3 ABG / Lab / Microbiology Data 06/15/23 05:12 06/15/23 05:12 Laboratory: Laboratory Results - last 24 hr 06/14/23 07:05: WBC 4.5, RBC 4.16 L, Hgb 12.8 L, Hct 37.3 L, MCV 89.7, MCH 30.8, MCHC 34.3, RDW Std Deviation 39.0, RDW Coeff of Tracy 12.0, Plt Count 307, MPV 9.0, Immature Gran % (Auto) 0.200, Neut % (Auto) 67.5, Lymph % (Auto) 16.9 L, Faulk % (Auto) 14.3 H, Eos % (Auto) 0.4, Baso % (Auto) 0.7, Absolute Neuts (auto) 3.0, Absolute Lymphs (auto) 0.76 L, Nucleated RBC % 0, Sodium 127 L, Potassium 3.7, Chloride 95 L, Carbon Dioxide 24.0, Anion Gap 8, BUN 6 L, Creatinine 0.61 L, Estim Creat Clear Calc 120.57, Est GFR (MDRD) Af Amer 176, Est GFR (MDRD) Non-Af 145, BUN/Creatinine Ratio 9.9 L, Glucose 86, Calcium 8.6 06/14/23 16:00: Sodium 127 L, Potassium 3.6, Chloride 95 L, Carbon Dioxide 27.0, Anion Gap 5, BUN 6 L, Creatinine 0.71, Estim Creat Clear Calc 103.59, Est GFR (MDRD) Af Amer 147, Est GFR (MDRD) Non-Af 121, BUN/Creatinine Ratio 8.4 L, Glucose 88, Calcium 8.6 06/15/23 05:12: WBC 4.2 L, RBC 3.94 L, Hgb 12.0 L, Hct 35.2 L, MCV 89.3, MCH 30.5, MCHC 34.1, RDW Std Deviation 39.5, RDW Coeff of Tracy 12.2, Plt Count 286, MPV 8.6, Immature Gran % (Auto) 0.200, Neut % (Auto) 61.7, Lymph % (Auto) 21.9, Faulk % (Auto) 15.0 H, Eos % (Auto) 0.7, Baso % (Auto) 0.5, Absolute Neuts (auto) 2.6, Absolute Lymphs (auto) 0.92, Nucleated RBC % 0, Sodium 129 L, Potassium 3.7, Chloride 95 L, Carbon Dioxide 27.0, Anion Gap 7, BUN 9, Creatinine 0.67 L, Estim Creat Clear Calc 109.77, Est GFR (MDRD) Af Amer 157, Est GFR (MDRD) Non-Af 130, BUN/Creatinine Ratio 13.4, Glucose 98, Calcium 8.6 Microbiology: Microbiology 06/09/23 13:30 Sputum, Expectorated/Coughed Gram Stain - Final 06/09/23 13:30 Sputum, Expectorated/Coughed Respiratory Culture - Final 06/07/23 15:50 Mucosa - Nasopharyngeal Respiratory Panel (PCR) - Final 06/07/23 17:00 Urine Catheter - Catheter Legionella Antigen - Final 06/07/23 17:00 Urine Catheter - Catheter Streptococcus pneumoniae Antigen (M - Final 06/07/23 09:05 Nasal Secretion SARS-CoV-2 & FLU Antigen (Rapid) - Final Discharge Plan Admission Admit Date/Time: 06/08/23 11:17 Attending Provider: Yinka George Primary Care Provider: Oscar Aguilar Consulting Providers: Lisa Farley Discharge Orders/Prescriptions Prescriptions: No Action omeprazole 20 mg capsule,delayed release(DR/EC) 20 mg PO DAILY Patient Comments: TAKE 1 CAPSULE ONCE DAILY PER PEG TUBE sennosides [senna] 8.6 mg tablet 8.6 mg PO DAILY Patient Comments: TAKE 1 TABLET VIA G TUBEAONCE DAILY loratadine 10 mg tablet 10 mg PO DAILY peg 3350-electrolytes 236-22.74-6.74 -5.86 gram recon soln 240 ml PO Q10M Rx Instructions: until fecal effluent is clear benzonatate 100 mg capsule 100 mg PO BID PRN (Reason: cough) valproic acid (as sodium salt) 250 MG/5 ML solution 5 ml G-tube BID Patient Comments: GIVE 5ML PER G-TUBE TWICEHDAILY levothyroxine 50 MCG tablet 50 mcg PO DAILY donepezil 10 mg tablet 10 mg PO QHS olanzapine 2.5 mg tablet 2.5 mg PO BID sodium chloride 1,000 mg tablet,soluble 1,000 mg PO DAILY trazodone 100 mg tablet 150 mg PO QHS haloperidol 5 mg tablet 5 mg PO Q6H PRN trazodone 150 mg tablet 150 mg PO QHS valproic acid (as sodium salt) 250 mg/5 mL solution 250 mg PO BID lorazepam 0.5 mg tablet 0.5 mg PO BID Referrals / Follow Up: Oscar Aguilar MD [Primary Care Provider] -
[2023-06-15 09:34] VITALS: BP 96/54; PULSE 75; RESP 16; TEMP 36.6; O2SAT 94
[2023-06-15] MEDS: Valproic Acid 250 MG/5 ML UDC PO (09:46)
[2023-06-15] MEDS: LORazepam 0.5 MG Tablet PO (09:46)
[2023-06-15] MEDS: Enoxaparin 40 MG/0.4 ML Syringe SC (09:46)
[2023-06-15] MEDS: OLANZapine 2.5 MG Tablet PO (09:47)
[2023-06-15] MEDS: 0.9% Saline Lock 10 ML Syringe IV (09:47)
[2023-06-15] MEDS: Pantoprazole Sodium 20 MG Tablet PO (09:47)
[2023-06-15] MEDS: Ceftriaxone 2 GM in 0.9% Normal Saline (50mL MB+) 50 ML IV (09:57)
[2023-06-15] MEDS: guaiFENesin 1,200 MG Tablet 1200 MG PO (09:59)
--- NOTE | 2023-06-15 10:11 | CASEMGMT ---
Social Work KONG received message from bedside nurse that pt's [facility] called last evening and do not feel they can accept pt back. KONG has spoke with Mukesh caregiver and contact at the [facility] multiple times throughout pt's stay and Mukesh has continued to state they can accept pt back when pt is medically ready. Phone call to Mukesh at this time to discuss discharge plan. Mukesh states that the Custodial Nurse Kasey Rodgers is in charge of decision making regarding placement of patients and she has stated concerns with pt returning to [facility]. Phone call to Kasey Rodgers ([phone]) to discuss pt return to Custodial. Kasey states pt's home is not handicap accessible and pt will need to complete 3 steps to get in and out of the home as there is no ramp. Pt will need to be able to ambulate in the home. [facility] can manage the Peg tube and feedings. Kasey inquiring about why pt is too lethargic to eat or drink as pt was able to eat prior to admission. Nursing updated on this medical concern. Per Kasey, if pt cannot functionally do steps or ambulate she will consult the programming department at the [facility] to see if there is another home pt can go to, but if not pt will need SNF placement. KONG met with therapy and updated on conversation with the [facility]dc. Therapy to see pt and evaluate ability to climb stairs and ambulate. Physician updated. KONG received phone call from pt's sister/legal Guardian Elinor Farias. KONG updated on conversation with Brittany. Aldrich stating she was understanding that pt would return to the [facility] and was unaware of issues with return. Elinor states that prior to admission to the hospital, pt was able to complete steps into the home. KONG will await therapy evaluation of steps and ambulation and will then contact Kasey for discharge planning. UBALDO Cadet
--- NOTE | 2023-06-15 10:27 | CASEMGMT ---
Addendum entered by Mag Petersen 06/15/23 15:06: 1317- Spoke with Hannah at [facility]. She does not have the MBS study, faxed at this time. TC to N to make aware pt may dc today. Spoke with Nandini, they will be out to see pt on Sunday or Sunday. Received tc back from Hannah at [facility], she states with the additional information, pt does qualify for TF. She will deliver 5 days of supply to pt room today then the rest of the supplies will be shipped. Info added to dc instructions. Updated SW. Original Note: Spoke with Rey from [facility] regarding feedings. He states Hannah the [employer] assistant will be in touch as it appears pt may not meet medicare guidelines for TF. Spoke with ST and pt nurse at this time regaring pt. RN CM to follow.
[2023-06-15] MEDS: Doxycycline 100 MG in Dextrose 5%-Water (250mL Bag) 250 ML 250 MG IV (11:05)
--- NOTE | 2023-06-15 11:53 | PCM.PN.HOSP ---
Reason for Visit Reason for Visit: Diagnoses Hypothyroidism, unspecified (06/08/23) Unspecified intellectual disabilities (06/08/23) Pneumonia, unspecified organism (06/08/23) Gastro-esophageal reflux disease without esophagitis (06/08/23) Dysphagia, oropharyngeal phase (06/08/23) Altered mental status, unspecified (06/08/23) Aphasia (06/08/23) Unspecified convulsions (06/08/23) Subjective Subjective Plan for patient to be discharged to his care home currently on hold after care home requested the patient could not be brought back due to decreased level of activity. Objective Data Objective Data Vital Signs: Vital Signs Temp Pulse Resp BP Pulse Ox O2 Del Method 97.9 F 75 16 96/54 L 94 Room Air 06/15/23 09:34 06/15/23 09:34 06/15/23 09:34 06/15/23 09:34 06/15/23 09:34 06/15/23 09:35 Oxygen Delivery Method Room Air Weight: 77.2 kg Body Mass Index (BMI) 27.3 Intake & Output: Intake and Output for Last 24 Hours 06/13/23 06/14/23 06/15/23 23:59 23:59 23:59 Intake Total 750 / 1010 1770 / 1770 860 / 860 Output Total 2400 / 2400 1750 / 1750 650 / 650 Balance -1650 / -1390 20 / 20 210 / 210 Lab / Micro Data 06/15/23 05:12 06/15/23 05:12 Labs: Laboratory Results - last 24 hr 06/14/23 16:00: Sodium 127 L, Potassium 3.6, Chloride 95 L, Carbon Dioxide 27.0, Anion Gap 5, BUN 6 L, Creatinine 0.71, Estim Creat Clear Calc 103.59, Est GFR (MDRD) Af Amer 147, Est GFR (MDRD) Non-Af 121, BUN/Creatinine Ratio 8.4 L, Glucose 88, Calcium 8.6 06/15/23 05:12: WBC 4.2 L, RBC 3.94 L, Hgb 12.0 L, Hct 35.2 L, MCV 89.3, MCH 30.5, MCHC 34.1, RDW Std Deviation 39.5, RDW Coeff of Tracy 12.2, Plt Count 286, MPV 8.6, Immature Gran % (Auto) 0.200, Neut % (Auto) 61.7, Lymph % (Auto) 21.9, Hutchinson % (Auto) 15.0 H, Eos % (Auto) 0.7, Baso % (Auto) 0.5, Absolute Neuts (auto) 2.6, Absolute Lymphs (auto) 0.92, Nucleated RBC % 0, Sodium 129 L, Potassium 3.7, Chloride 95 L, Carbon Dioxide 27.0, Anion Gap 7, BUN 9, Creatinine 0.67 L, Estim Creat Clear Calc 109.77, Est GFR (MDRD) Af Amer 157, Est GFR (MDRD) Non-Af 130, BUN/Creatinine Ratio 13.4, Glucose 98, Calcium 8.6 Micro: Microbiology 06/09/23 13:30 Sputum, Expectorated/Coughed Gram Stain - Final 06/09/23 13:30 Sputum, Expectorated/Coughed Respiratory Culture - Final 06/07/23 15:50 Mucosa - Nasopharyngeal Respiratory Panel (PCR) - Final 06/07/23 17:00 Urine Catheter - Catheter Legionella Antigen - Final 06/07/23 17:00 Urine Catheter - Catheter Streptococcus pneumoniae Antigen (M - Final 06/07/23 09:05 Nasal Secretion SARS-CoV-2 & FLU Antigen (Rapid) - Final Rhythm Strip Rhythm Strip: Sinus Rhythm Rate: 73 Ectopy: None Physical Exam Narrative GENERAL: Much more interactive compared to previous day HEENT: Atraumatic; normocephalic EYES; Anicteric, Normal Conjunctiva NECK; supple, normal thyroid, RESPIRATORY: Diminished to auscultation CARDIOVASCULAR: Regular S1 S2, GI: soft, normoactive bowel sounds, : No Renal angle tenderness; EXTREMITIES: No edema, no clubbing, MUSCULOSKELETAL: no muscle wasting NEURO: Awake; no lateralizing signs. SKIN: No Rash PSYCH; Flat affect Assessment & Plan Assessment/Plan (1) Hyponatremia: (2) Pneumonia: PLAN: Plan Patient is a 58-year-old gentleman with history of Down syndrome with learning disability resident at the care home who was brought to the ED with progressive generalized weakness was a suspicion of possible aspiration pneumonia. 1. Suspected aspiration pneumonia ? Patient was managed with Rocephin and doxycycline and kept n.p.o. 2. Dysphagia ? Status post EGD which found moderate Schatzki ring which was dilated as well as nonsevere reflux esophagitis. Plans for patient to undergo modified barium swallow and if unable to tolerate oral diet patient already has a PEG tube in situ ? 06/12/2023 patient did pull out his PEG tube consult has been placed to GI ? 06/13/2023; patient underwent EGD with replacement of PEG tube No endoscopic esophageal abnormality to explain patient's dysphagia. Esophagus dilated. Dilated. - No gross lesions in the stomach. - Normal duodenal bulb. - An endoscopically removable PEG placement was successfully completed. - No specimens collected. Recommendations : - [facility]. - Resume previous diet. - Continue present medications. ? 06/14/2023 plan is to reinitiate tube feeding 3. Seizure disorder ? To continue with Depakote 4. GERD ? On PPI 5. Down syndrome with intellectual disability ? Supportive care. Patient's sister is his legal guardian was at the bedside Case discussed with her 6. Hyponatremia ? Patient is on sodium tablet dose adjusted 7. DVT prophylaxis ? SC Lovenox 8. Physical deconditioning - Requested for PT OT eval and social services assistant to assist with discharge planning Time spent in the patient's overall evaluation,decision-making process, review of diagnostic data, adjustment of management, discussion with other providers, nursing nursing and ancillary staff involved in patient's care documentation, 35 minutes Charges/Coding Visit Charges Inpatient E&M: 85597 Subs Hosp L2
[2023-06-15 12:13] VITALS: BP 99/43; PULSE 87; RESP 18; TEMP 36.5; O2SAT 98
[2023-06-15 14:09] VITALS: BP 95/45; PULSE 82; RESP 18; TEMP 36.3; O2SAT 98
--- NOTE | 2023-06-15 14:10 | PCM.DC.SUM ---
Providers Date of Admission: 06/08/23 Date of Discharge: 06/15/23 Primary Care Physician: Oscar Aguilar MD Consultations 06/08/23 14:35 Consult: Gastroenterology Routine Consulting Provider: [facility] Reason for Consult: narrowing at cricopharyngeus, speech rec'd GI c/s EMERGENT Consult: No MD Notified: Yes Date Notified: 06/08/23 Time Notified: 15:30 Method of Notification: via text Reason For Visit: CAP /WORSENED MENTAL STATUS AND FUNCTIONAL DECLINE Diagnosis Discharge Diagnosis (1) Hyponatremia: Status: Acute Code(s): E87.1 - Hypo-osmolality and hyponatremia (2) Pneumonia: Status: Acute Code(s): J18.9 - Pneumonia, unspecified organism Plan Patient is a 58-year-old gentleman with history of Down syndrome with learning disability resident at the [facility] who was brought to the ED with progressive generalized weakness was a suspicion of possible aspiration pneumonia. 1. Suspected aspiration pneumonia ? Patient was managed with Rocephin and doxycycline and kept n.p.o. 2. Dysphagia ? Status post EGD which found moderate Schatzki ring which was dilated as well as nonsevere reflux esophagitis. Plans for patient to undergo modified barium swallow and if unable to tolerate oral diet patient already has a PEG tube in situ ? 06/12/2023 patient did pull out his PEG tube consult has been placed to GI ? 06/13/2023; patient underwent EGD with replacement of PEG tube No endoscopic esophageal abnormality to explain patient's dysphagia. Esophagus dilated. Dilated. - No gross lesions in the stomach. - Normal duodenal bulb. - An endoscopically removable PEG placement was successfully completed. - No specimens collected. Recommendations : - [facility]. - Resume previous diet. - Continue present medications. ? 06/14/2023 plan is to reinitiate tube feeding 3. Seizure disorder ? To continue with Depakote 4. GERD ? On PPI 5. Down syndrome with intellectual disability ? Supportive care. Patient's sister is his legal guardian was at the bedside Case discussed with her 6. Hyponatremia ? Patient is on sodium tablet dose adjusted 7. DVT prophylaxis ? SC Lovenox 8. Physical deconditioning - Requested for PT OT eval and criminal justice social worker to assist with discharge planning Time spent in the patient's overall evaluation,decision-making process, review of diagnostic data, adjustment of management, discussion with other providers, nursing nursing and ancillary staff involved in patient's care documentation, 35 minutes Medications at Discharge Home Medications valproic acid (as sodium salt) 250 mg/5 mL oral solution 5 ml G-tube BID 04/01/19 levothyroxine 50 mcg tablet 50 mcg PO DAILY 07/04/19 omeprazole 20 mg capsule,delayed release 20 mg PO DAILY 04/14/22 sennosides 8.6 mg tablet (senna) 8.6 mg PO DAILY 04/14/22 benzonatate 100 mg capsule 100 mg PO BID PRN cough 08/21/22 loratadine 10 mg tablet 10 mg PO DAILY 08/21/22 donepezil 10 mg tablet 10 mg PO QHS 05/25/23 haloperidol 5 mg tablet 5 mg PO Q6H PRN agitation 05/25/23 olanzapine 2.5 mg tablet 2.5 mg PO BID 05/25/23 sodium chloride 1,000 mg soluble tablet 1,000 mg PO DAILY 05/25/23 trazodone 100 mg tablet 150 mg PO QHS 05/25/23 lorazepam 0.5 mg tablet 0.5 mg PO BID 06/07/23 trazodone 150 mg tablet 150 mg PO QHS 06/07/23 valproic acid (as sodium salt) 250 mg/5 mL oral solution 250 mg PO BID 06/07/23 lactose-reduced food with fiber 0.06 gram-1.5 kcal/mL oral liquid (Jevity 1.5 Prasad) 300 ml G-tube ACHS #0 mL 06/15/23 Hospital Course Summary of Care Provided Minutes Spent on Discharge: 35 Physical Exam Narrative GENERAL: Much more interactive compared to previous day HEENT: Atraumatic; normocephalic EYES; Anicteric, Normal Conjunctiva NECK; supple, normal thyroid, RESPIRATORY: Diminished to auscultation CARDIOVASCULAR: Regular S1 S2, GI: soft, normoactive bowel sounds, : No Renal angle tenderness; EXTREMITIES: No edema, no clubbing, MUSCULOSKELETAL: no muscle wasting NEURO: Awake; no lateralizing signs. SKIN: No Rash PSYCH; Flat affect Weight / BMI Weight Weight: 77.2 kg Body Mass Index (BMI) 27.3 ABG / Lab / Microbiology Data 06/15/23 05:12 06/15/23 05:12 Laboratory: Laboratory Results - last 24 hr 06/14/23 16:00: Sodium 127 L, Potassium 3.6, Chloride 95 L, Carbon Dioxide 27.0, Anion Gap 5, BUN 6 L, Creatinine 0.71, Estim Creat Clear Calc 103.59, Est GFR (MDRD) Af Amer 147, Est GFR (MDRD) Non-Af 121, BUN/Creatinine Ratio 8.4 L, Glucose 88, Calcium 8.6 06/15/23 05:12: WBC 4.2 L, RBC 3.94 L, Hgb 12.0 L, Hct 35.2 L, MCV 89.3, MCH 30.5, MCHC 34.1, RDW Std Deviation 39.5, RDW Coeff of Tracy 12.2, Plt Count 286, MPV 8.6, Immature Gran % (Auto) 0.200, Neut % (Auto) 61.7, Lymph % (Auto) 21.9, [place] % (Auto) 15.0 H, Eos % (Auto) 0.7, Baso % (Auto) 0.5, Absolute Neuts (auto) 2.6, Absolute Lymphs (auto) 0.92, Nucleated RBC % 0, Sodium 129 L, Potassium 3.7, Chloride 95 L, Carbon Dioxide 27.0, Anion Gap 7, BUN 9, Creatinine 0.67 L, Estim Creat Clear Calc 109.77, Est GFR (MDRD) Af Amer 157, Est GFR (MDRD) Non-Af 130, BUN/Creatinine Ratio 13.4, Glucose 98, Calcium 8.6 Microbiology: Microbiology 06/09/23 13:30 Sputum, Expectorated/Coughed Gram Stain - Final 06/09/23 13:30 Sputum, Expectorated/Coughed Respiratory Culture - Final 06/07/23 15:50 Mucosa - Nasopharyngeal Respiratory Panel (PCR) - Final 06/07/23 17:00 Urine Catheter - Catheter Legionella Antigen - Final 06/07/23 17:00 Urine Catheter - Catheter Streptococcus pneumoniae Antigen (M - Final 06/07/23 09:05 Nasal Secretion SARS-CoV-2 & FLU Antigen (Rapid) - Final D/C Instructions Discharge Diet: Swallowing Precautions Discharge Activity: Return to Normal Activity Call your doctor if you observe: Fever of 101 or Higher, Shortness of breath, Fainting spells and Chest pain Meaningful Use Info Meaningful Use Diagnoses (Choose all that apply): None applicable Discharge Plan Admission Admit Date/Time: 06/08/23 11:17 Attending Provider: Yinka George Primary Care Provider: Oscar Aguilar Consulting Providers: Lisa Farley Discharge Orders/Prescriptions Prescriptions: New Jevity 1.5 Prasad 0.06 gram-1.5 kcal/mL Liquid 300 ml G-tube ACHS Qty: 0 0RF Continued omeprazole 20 mg capsule,delayed release(DR/EC) 20 mg PO DAILY Patient Comments: TAKE 1 CAPSULE ONCE DAILY PER PEG TUBE sennosides [senna] 8.6 mg tablet 8.6 mg PO DAILY Patient Comments: TAKE 1 TABLET VIA G TUBEAONCE DAILY loratadine 10 mg tablet 10 mg PO DAILY benzonatate 100 mg capsule 100 mg PO BID PRN (Reason: cough) valproic acid (as sodium salt) 250 MG/5 ML solution 5 ml G-tube BID Patient Comments: GIVE 5ML PER G-TUBE TWICEHDAILY levothyroxine 50 MCG tablet 50 mcg PO DAILY donepezil 10 mg tablet 10 mg PO QHS olanzapine 2.5 mg tablet 2.5 mg PO BID sodium chloride 1,000 mg tablet,soluble 1,000 mg PO DAILY trazodone 100 mg tablet 150 mg PO QHS haloperidol 5 mg tablet 5 mg PO Q6H PRN trazodone 150 mg tablet 150 mg PO QHS valproic acid (as sodium salt) 250 mg/5 mL solution 250 mg PO BID lorazepam 0.5 mg tablet 0.5 mg PO BID Discontinued peg 3350-electrolytes [id number] -5.86 gram recon soln 240 ml PO Q10M Rx Instructions: until fecal effluent is clear Referrals / Follow Up: Oscar Aguilar MD [Primary Care Provider] - In 1 Week Disposition Disposition (needs filled in before D/C Order can be placed): Home Health Service Charges/Coding Visit Charges Inpatient E&M: 64148 Disch Hosp >30min
--- NOTE | 2023-06-15 15:00 | CASEMGMT ---
Social Work SW spoke with therapy and pt was able to complete 3 steps with min-mod assist x2. Per RNCM, tube feeding supplies have been set up with [facility] and they have been delivered to pt room. Phone call to Kasey Rodgers, halfway RN and updated with this information and they are able to accept pt back today. Physician notified and discharged patient. Discharge orders faxed to Kasey. Kasey will call halfway to come and pick pt up. Phone call to pt's guardian and above discharge plan explained. Guardian agreeable. Nursing updated. Disposition: Return to halfway today UBAL[facility] Cadet
== END 2023-06-15 15:12 | disposition home health service (06) | DRG 178 ==
LOC: ED 10:21 → MS3 11:41
PROVIDERS: Internal Medicine Gastroenterology; Admitting Provider Internal Medicine; Emergency Provider Emergency Medicine; PCP Family Medicine; Visit Provider Internal Medicine
PROC: 0DJ08ZZ Inspection of Upper Intestinal Tract, Via Natural or Artificial Opening Endoscopic (ICD-10-PCS; CPT 43235; principal; 2023-06-09 06:55)
DX: J69.0 Pneumonitis due to inhalation of food and vomit (principal); E87.1 Hypo-osmolality and hyponatremia; K22.2 Esophageal obstruction; Q90.9 Down syndrome, unspecified; R13.12 Dysphagia, oropharyngeal phase; F03.90 Unspecified dementia, unspecified severity, without behavioral disturbance, psychotic disturbance, mood disturbance, and anxiety; G40.909 Epilepsy, unspecified, not intractable, without status epilepticus; Z93.1 Gastrostomy status; E03.9 Hypothyroidism, unspecified; K44.9 Diaphragmatic hernia without obstruction or gangrene; K21.00 Gastro-esophageal reflux disease with esophagitis, without bleeding; F79 Unspecified intellectual disabilities
CPT/HCPCS: 36415; 71045; 74230; 80048; 80053; 80164; 81001; 82140; 82607; 83605; 83735; 84100; 84443; 85025; 85730; 87070; 87205; 87428; 87449; 87633; 88305; 88312; 92526; 92610; 92611; 93005; 97162; 97166; 97530; 97535; 97802; 97803; 99285; J7030; J7050; J7120; A4216; C1769; J0696; J2405

== ENCOUNTER → 2024-01-24 | Outpatient (CLI) | payer MEDICARE, MEDICAID, SELFPAY ==
[2024-01-24 18:25] LABS: Valproic Acid (Depakene) Level 42 ug/mL (50-100)
[2024-01-24 18:26] LABS: Erythrocyte Sedimentation Rate 29 mm/hr (0-20)
[2024-01-24 18:28] LABS: Hematocrit 36.8 % (40-54); Hemoglobin 11.5 g/dL (13.0-16.5); Mean Corp Hgb Conc 31.3 g/dL (32-36); Mean Corpuscular Volume 92.7 fL (80-94); Mean Platelet Vol. 8.8 fl (6.2-12.0); Platelet Count 432 K/mm3 (150-450); RBC Distribution Width CV 14.9 % (11.6-14.6); RBC Distribution Width SD 50.5 fl (35.1-43.9); Red Blood Count 3.97 M/mm3 (4.6-6.2); White Blood Count 4.4 K/mm3 (4.4-11.0)
[2024-01-24 18:41] LABS: ALB/GLOB Ratio 0.5 RATIO (0.9-2.4); AST(SGOT) 20 U/L (15-37); Alanine Aminotransfer ALT/SGPT 26 U/L (16-61); Albumin, Serum 2.6 g/dL (3.2-5.0); Alkaline Phosphatase 80 U/L (45-117); Anion Gap 7 (5-15); BUN 10 mg/dL (7-18); BUN/Creat Ratio 11.8 RATIO (10-20); Calcium,Total 8.9 mg/dL (8.5-10.1); Chloride 100 mmol/L (98-107); Creatinine, Serum 0.85 mg/dL (0.70-1.30); EST Glomerular Filtration Rate 99 mL/min (>60); Est Glom Filt Rate - Afr Amer 119 mL/min (>60); Globulin 5.1 g/dL (2.2-4.2); Glucose 99 mg/dL (74-106); Potassium 3.8 mmol/L (3.5-5.1); Protein, Total 7.7 g/dL (6.4-8.2); Sodium Level 137 mmol/L (136-145); T4 Free Direct 0.98 ng/dL (0.76-1.46); Thyroid Stim Hormone (TSH) 2.75 uIU/mL (0.358-3.74)
[2024-01-24 19:05] LABS: Vitamin B12 439 pg/mL (211-911)
[2024-01-28 12:08] LABS: Vitamin D 1,25-Dihydroxy 15.7 pg/mL (24.8-81.5)
[2024-01-30 20:08] LABS: Vitamin B1, Thiamine 68.6 nmol/L (66.5-200.0)
== END | disposition home or self-care (01) ==
PROVIDERS: PCP Family Medicine; Referring Provider Psychiatry & Neurology Neurology; Visit Provider Psychiatry & Neurology Neurology
DX: F03.90 Unspecified dementia, unspecified severity, without behavioral disturbance, psychotic disturbance, mood disturbance, and anxiety (principal); G40.909 Epilepsy, unspecified, not intractable, without status epilepticus; F32.9 Major depressive disorder, single episode, unspecified; E03.9 Hypothyroidism, unspecified
CPT/HCPCS: 36415; 80053; 80164; 82140; 82607; 82652; 82746; 84425; 84439; 84443; 85027; 85652

== ENCOUNTER → 2024-03-27 | Outpatient (CLI) | payer MEDICAID, MEDICARE, SELFPAY ==
--- NOTE | 2024-03-27 07:43 | CT_ITS ---
STUDY: CT BRAIN WITHOUT CONTRAST REASON FOR EXAM: Male, 58 years old. Dementia; epilepsy RADIATION DOSAGE (If Supplied By Facility): CTDIvol = ( 29.71 ) mGy, DLP = ( 548.95 ) mGycm TECHNIQUE: Transaxial CT imaging of the brain was performed without administration of intravenous contrast material. Individualized dose optimization techniques were used for this CT. COMPARISON: Comparison is made with prior study dated May 28, 2023. FINDINGS: Normal soft tissue structures. Normal calvarium. There is disproportionate enlargement of the lateral and third ventricles, as compared to the extra-axial spaces. The findings suggest normal pressure hydrocephalus (NPH). Normal white matter tracts of the cerebral hemispheres. Normal basal ganglia and thalami. Normal brainstem. There is mild cerebellar atrophy. There is no intracranial hemorrhage. There are no findings of an acute ischemic infarction. Normal visualized paranasal sinuses. CT/Brain/Head without Contrast IMPRESSION: Stable examination. 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 Electronically Signed: Arnold Pena MD at 14:46 EDT ,
== END | disposition home or self-care (01) ==
PROVIDERS: PCP Family Medicine; Referring Provider Psychiatry & Neurology Neurology; Visit Provider Psychiatry & Neurology Neurology
DX: F03.90 Unspecified dementia, unspecified severity, without behavioral disturbance, psychotic disturbance, mood disturbance, and anxiety (principal); G40.909 Epilepsy, unspecified, not intractable, without status epilepticus; Q90.9 Down syndrome, unspecified
CPT/HCPCS: 70450

== ENCOUNTER → 2024-11-17 | Outpatient (CLI) | payer MEDICARE, MEDICAID, SELFPAY ==
[2024-11-17 18:08] LABS: Hematocrit 37.1 % (40-54); Hemoglobin 12.4 g/dL (13.0-16.5); Mean Corp Hgb Conc 33.4 g/dL (32-36); Mean Corpuscular Hgb 31.1 pg (27.0-32.0); Mean Platelet Vol. 9.5 fl (6.2-12.0); Platelet Count 286 K/mm3 (150-450); RBC Distribution Width CV 13.7 % (11.6-14.6); RBC Distribution Width SD 46.8 fl (35.1-43.9); Red Blood Count 3.99 M/mm3 (4.6-6.2)
[2024-11-17 18:37] LABS: Ammonia 46.8 umol/L (16-60); Valproic Acid (Depakene) Level 52 ug/mL (50-100)
[2024-11-17 18:56] LABS: ALB/GLOB Ratio 0.9 RATIO (0.9-2.4); AST(SGOT) 29 U/L (<=37); Alanine Aminotransfer ALT/SGPT 25 U/L (<=46); Albumin, Serum 3.4 g/dL (3.5-5.0); Alkaline Phosphatase 90 U/L (40-129); Anion Gap 11 (5-15); BUN 14 mg/dL (4-19); BUN/Creat Ratio 22.3 RATIO (10-20); Carbon Dioxide 23.2 mmol/L (21.0-32.0); Chloride 96 mmol/L (98-108); Creatinine, Serum 0.64 mg/dL (0.70-1.20); EST Glomerular Filtration Rate 110 (>60); Globulin 3.9 g/dL (2.2-4.2); Glucose 165 mg/dL (70-99); Potassium 4.1 mmol/L (3.3-5.1); Protein, Total 7.3 g/dL (5.9-8.4); Sodium Level 130 mmol/L (133-145); Total Bilirubin 0.17 mg/dL (0.00-1.30)
== END | disposition home or self-care (01) ==
LOC: MTLAB 14:07
PROVIDERS: PCP Family Medicine; Referring Provider Psychiatry & Neurology Neurology; Visit Provider Psychiatry & Neurology Neurology
DX: G40.909 Epilepsy, unspecified, not intractable, without status epilepticus (principal)
CPT/HCPCS: 36415; 80053; 80164; 82140; 85027